=== PATIENT | male | born 1970 | race Caucasian/White ===

== ENCOUNTER 2018-07-19 07:20 | Inpatient (IN) | payer BC ==
[2018-07-19 07:46] LABS: Absolute Lymphocytes (CBC) 2.9 K/uL (0.7-4.9); Absolute Monocytes 0.7 K/uL (0.1-1.3); Absolute Neutrophil 3.1 K/uL (1.8-8.0); Eosinophils % 2.7 % (0-4.4); Hematocrit 41.8 % (39.6-49.0); Lymphocytes % 41.6 % (15.3-44.8); MCH 30.4 pg (27.0-35.0); MCV 86.6 fL (80-100); MPV 8.9 fL (7.6-11.3); Monocytes % 10.5 % (3.3-12.3); RBC Red Blood Cell Count 4.83 M/uL (4.33-5.43)
[2018-07-19 08:18] LABS: Albumin 4.5 g/dL (3.4-5.0); Bilirubin Direct 0.1 mg/dL (0-0.2); Bilirubin Total 0.5 mg/dL (0.2-1.0); Potassium 3.8 mmol/L (3.5-5.1)
[2018-07-19 08:21] LABS: CKMB Creatine Kinase MB 11.9 ng/mL (0.3-3.6)
[2018-07-19] MEDS ORDERED: NITROGLYCERIN 0.4 MG/TAB SL ONE (08:26)
[2018-07-19] MEDS ORDERED: ASPIRIN 81 MG CHEWABLE TABLET ONE (08:26)
[2018-07-19] MEDS ORDERED: ENOXAPARIN 100 MG/ML SYR SQ ONE (08:42)
--- NOTE | 2018-07-19 08:52 | EDPHYS ---
Physician Documentation [facility] Name: Steven Morillo Age: 47 yrs Sex: Male : 1970 Arrival Date: 07/19/2018 Time: 07:21 Bed 13 Private MD: ED Physician Osiel Ramírez HPI: 07/19 07:36 This 47 yrs old Male presents to ER via Wheelchair with complaints of Chest rn Pain > 30 y/o. 07:36 The patient or guardian reports chest pain that is located primarily in the anterior rn chest wall. Onset: this morning. The pain does not radiate. Associated signs and symptoms: Pertinent positives: None. Pertinent negatives: abdominal pain, cough, palpitations, shortness of breath, syncope, vomiting. The chest pain is described as dull. Duration: The patient or guardian reports a single episode, that is still ongoing. Modifying factors: The symptoms are alleviated by nothing. the symptoms are aggravated by nothing. Severity of pain: At its worst the pain was mild in the emergency department the pain is unchanged. The patient has not experienced similar symptoms in the past. The patient has not recently seen a physician. Reports chest pain, dull, non-radiating, began this AM, had some nausea/vomiting that began Tuesday, no abd pain. No fever. Family hx of ID at his age with at 61.. Historical: - Allergies: 07:30 No Known Allergies; aj - Home Meds: 07:30 Unknown HTN med [Active]; Lipitor Oral [Active]; aj - PMHx: 07:30 Hyperlipidemia; Hypertension; aj - PSHx: 07:30 Shoulder; Hernia repair; aj - Immunization history:: Adult Immunizations up to date. - Social history:: Smoking status: Patient/guardian denies using tobacco. - Ebola Screening: : Patient negative for fever greater than or equal to 101.5 degrees Fahrenheit, and additional compatible Ebola Virus Disease symptoms Patient denies exposure to infectious person Patient denies travel to an Ebola-affected area in the 21 days before illness onset No symptoms or risks identified at this time. - Family history:: not pertinent. - Hospitalizations: : No recent hospitalization is reported. ROS: 07:36 Constitutional: Negative for fever, chills, and weight loss, Eyes: Negative for injury, rn pain, redness, and discharge, Neck: Negative for injury, pain, and swelling, Cardiovascular: Negative for palpitations, and edema, Respiratory: Negative for shortness of breath, cough, wheezing, and pleuritic chest pain, Abdomen/GI: Negative for abdominal pain, nausea, vomiting, diarrhea, and constipation, MS/Extremity: Negative for injury and deformity, Skin: Negative for injury, rash, and discoloration, Neuro: Negative for headache, weakness, numbness, tingling, and seizure. Exam: 07:36 Constitutional: This is a well developed, well nourished patient who is awake, alert, rn appears anxious Head/Face: Normocephalic, atraumatic. Eyes: Pupils equal round and reactive to light, extra-ocular motions intact. Lids and lashes normal. Conjunctiva and sclera are non-icteric and not injected. Cornea within normal limits. Periorbital areas with no swelling, redness, or edema. Cardiovascular: Regular rate and rhythm with a normal S1 and S2. No gallops, murmurs, or rubs. Normal PMI, no JVD. No pulse deficits. Respiratory: Lungs have equal breath sounds bilaterally, clear to auscultation and percussion. No rales, rhonchi or wheezes noted. No increased work of breathing, no retractions or nasal flaring. Abdomen/GI: Soft, non-tender. No distension or tympany. No guarding or rebound. No evidence of tenderness throughout. MS/ Extremity: Pulses equal, no cyanosis. Neurovascular intact. Full, normal range of motion. Equal circumference. Neuro: Awake and alert, GCS 15, oriented to person, place, time, and situation. Cranial nerves II-XII grossly intact. Motor strength 5/5 in all extremities. Sensory grossly intact. 07:41 ECG was reviewed by the Attending Physician. rn Vital Signs: 07:30 BP 177 / 111; Pulse 90; Resp 16; Temp 98.5; Pulse Ox 97% on R/A; Weight 98.43 kg; aj Height 5 ft. 11 in. (180.34 cm); 08:05 BP 160 / 102; Pulse 72; Resp 17; Pulse Ox 95% on R/A; sv 08:15 BP 142 / 108; Pulse 83; Resp 17; Pulse Ox 99% ; sv 08:35 BP 137 / 96 LA Sitting (auto/reg); Pulse 81; Resp 16; Pulse Ox 96% on R/A; sv 09:15 BP 125 / 89; Pulse 77; Resp 16; Pulse Ox 96% on R/A; dh3 09:45 BP 128 / 92; Pulse 89; Resp 19; Pulse Ox 99% on R/A; dh3 10:30 BP 142 / 102; Pulse 78; Resp 15; Pulse Ox 98% on R/A; dh3 11:29 BP 133 / 112; Pulse 74; Resp 16; Pulse Ox 96% on R/A; dh3 07:30 Body Mass Index 30.27 (98.43 kg, 180.34 cm) aj MDM: 07:26 Patient medically screened. rn 08:48 Differential diagnosis: anxiety, coronary artery disease pericarditis, pleurisy, rn pneumonia, pneumothorax, stable angina, unstable angina. Data reviewed: vital signs, nurses notes. Data reviewed: lab test result(s), EKG, radiologic studies, plain films, and as a result, I will admit patient. 08:50 The patient was given aspirin in the Emergency Department. Counseling: I had a detailed rn discussion with the patient and/or guardian regarding: the historical points, exam findings, and any diagnostic results supporting the discharge/admit diagnosis, lab results, radiology results, the need for further work-up and treatment in the hospital. Response to treatment: the patient's symptoms have mildly improved after treatment, and as a result, I will admit patient. Admission orders: after a detailed discussion of the patient's condition and case, the admit orders are written by me. ED course: Pt with elevated trop, + famhx hx of early ID and , improved a little with nitro, aspirin and lovenox given, admitted to Dr. Viera, no answer, left voicemail.. 11:50 ED course: Cardiology aware of patient and consult, awaiting evaluation, currently rn holding in ER due to lack of beds upstairs.. 07/19 07:33 Order name: LFT's; Complete Time: 08:32 rn 07/19 07:33 Order name: Basic Metabolic Panel; Complete Time: 08:32 rn 07/19 07:33 Order name: CBC with Diff; Complete Time: 08:14 rn 07/19 07:33 Order name: Ckmb; Complete Time: 08:32 rn 07/19 07:33 Order name: CPK; Complete Time: 08:32 rn 07/19 07:33 Order name: NT PRO-BNP; Complete Time: 08:32 rn 07/19 07:33 Order name: Troponin (emerg Dept Use Only); Complete Time: 08:32 rn 07/19 07:33 Order name: XRAY Chest (1 view); Complete Time: 09:02 rn 07/19 07:33 Order name: Lipase; Complete Time: 08:32 rn 07/19 10:25 Order name: Troponin (emerg Dept Use Only) sv 07/19 11:07 Order name: Troponin (Emerg Dept Use Only); Complete Time: 11:29 EDMS 07/19 07:33 Order name: EKG; Complete Time: 07:34 rn 07/19 07:33 Order name: Cardiac monitoring; Complete Time: 07:40 rn 07/19 07:33 Order name: EKG - Nurse/Tech; Complete Time: 07:40 rn 07/19 07:33 Order name: IV Saline Lock; Complete Time: 07:40 rn 07/19 07:33 Order name: Labs collected and sent; Complete Time: 07:40 rn 07/19 07:33 Order name: O2 Per Protocol; Complete Time: 07:41 rn 07/19 07:33 Order name: O2 Sat Monitoring; Complete Time: 07:41 rn EC:41 Rate is 72 beats/min. Rhythm is regular. QRS [place] is Normal. [place] interval is normal. QRS rn interval is normal. No Q waves. T waves are Normal. No ST changes noted. Clinical impression: Normal ECG. Interpreted by me. Administered Medications: 08:23 Drug: Aspirin Chewable Tablet 324 mg Route: PO; sv 08:34 Follow up: Response: No adverse reaction sv 08:24 Drug: Nitroglycerin 0.4 mg Route: Sublingual; sv 08:35 Follow up: Response: No adverse reaction sv 08:39 Drug: Lovenox 1 mg/kg Route: Sub-Q; Site: left lower abdomen; sv 10:26 Follow up: Response: No adverse reaction sv Disposition: 07/19/18 08:51 Hospitalization ordered by Anna Viera for Inpatient Admission. Preliminary diagnosis is Non-ST elevation (NSTEMI) myocardial infarction. - Bed requested for Telemetry/MedSurg (Inpatient). - Status is Inpatient Admission. ph - Condition is Stable. - Problem is new. - Symptoms have improved. UTI on Admission? No Signatures: Dispatcher [employer] EDMS Shereen Romano Lara Hartman, RN Anne-Marie Jimenez, RN Ina Solis RN Osiel Esparza MD MD rn Hall, CHIRAG Soto RN ph Corrections: (The following items were deleted from the chart) 09:03 08:51 Hospitalization Ordered by Anna Viera MD for Inpatient Admission. Preliminary bd diagnosis is Non-ST elevation (NSTEMI) myocardial infarction. Bed requested for Telemetry/MedSurg (Inpatient). Status is Inpatient Admission. Condition is Stable. Problem is new. Symptoms have improved. UTI on Admission? No. rn 14:03 09:03 07/19/2018 08:51 Hospitalization Ordered by Anna Viera MD for Inpatient bd Admission. Preliminary diagnosis is Non-ST elevation (NSTEMI) myocardial infarction. Bed requested for [facility] ER HOLD. Status is Inpatient Admission. Condition is Stable. Problem is new. Symptoms have improved. UTI on Admission? No. bd 14:04 14:03 07/19/2018 08:51 Hospitalization Ordered by Anna Viera MD for Inpatient kl Admission. Preliminary diagnosis is Non-ST elevation (NSTEMI) myocardial infarction. Bed requested for Telemetry/MedSurg (Inpatient). Status is Inpatient Admission. Condition is Stable. Problem is new. Symptoms have improved. UTI on Admission? No. bd 14:59 14:04 07/19/2018 08:51 Hospitalization Ordered by Anna Viera MD for Inpatient ph Admission. Preliminary diagnosis is Non-ST elevation (NSTEMI) myocardial infarction. Bed requested for Telemetry/MedSurg (Inpatient). Status is Inpatient Admission. Condition is Stable. Problem is new. Symptoms have improved. UTI on Admission? No. kl
--- NOTE | 2018-07-19 08:52 | ER ---
Nurse's Notes [facility] Name: Steven Morillo Age: 47 yrs Sex: Male : 1970 Arrival Date: 07/19/2018 Time: 07:21 Bed 13 Private MD: Diagnosis: Non-ST elevation (NSTEMI) myocardial infarction Presentation: 07/19 07:28 Presenting complaint: Patient states: Sternal chest pain that started Tuesday. Reports aj nausea and dizziness on Tuesday. Transition of care: patient was not received from another setting of care. Onset of symptoms was July 16, 2018. Risk Assessment: Do you want to hurt yourself or someone else? Patient reports no desire to harm self or others. Initial Sepsis Screen: Does the patient meet any 2 criteria? No. Patient's initial sepsis screen is negative. Does the patient have a suspected source of infection? No. Patient's initial sepsis screen is negative. Care prior to arrival: None. 07:28 Method Of Arrival: Wheelchair aj 07:28 Acuity: TIFFANIE 3 aj Triage Assessment: 07:30 General: Appears in no apparent distress. comfortable, Behavior is calm, cooperative, aj appropriate for age. Pain: Complains of pain in mid-sternal area. Neuro: Level of Consciousness is awake, alert, obeys commands, Oriented to person, place, time, situation, Appropriate for age. Cardiovascular: Reports chest pain, lightheadedness, nausea, shortness of breath, Capillary refill < 3 seconds in bilateral fingers Patient's skin is warm and dry. Respiratory: Airway is patent Respiratory effort is even, unlabored, Respiratory pattern is regular, symmetrical. Derm: Skin is intact, is healthy with good turgor, Skin is pink, warm \T\ dry. normal. Historical: - Allergies: 07:30 No Known Allergies; aj - Home Meds: 07:30 Unknown HTN med [Active]; Lipitor Oral [Active]; aj - PMHx: 07:30 Hyperlipidemia; Hypertension; aj - PSHx: 07:30 Shoulder; Hernia repair; aj - Immunization history:: Adult Immunizations up to date. - Social history:: Smoking status: Patient/guardian denies using tobacco. - Ebola Screening: : Patient negative for fever greater than or equal to 101.5 degrees Fahrenheit, and additional compatible Ebola Virus Disease symptoms Patient denies exposure to infectious person Patient denies travel to an Ebola-affected area in the 21 days before illness onset No symptoms or risks identified at this time. - Family history:: not pertinent. - Hospitalizations: : No recent hospitalization is reported. Screenin:30 Abuse screen: Denies threats or abuse. Denies injuries from another. Nutritional sv screening: No deficits noted. Tuberculosis screening: No symptoms or risk factors identified. Fall Risk None identified. Assessment: 07:45 General: Appears in no apparent distress. comfortable, well developed, Behavior is sv calm, cooperative, appropriate for age. Pain: Complains of pain in mid-sternal area Pain currently is 3 out of 10 on a pain scale. Quality of pain is described as dull, Pain began 0400 Is intermittent. Neuro: Level of Consciousness is awake, alert, obeys commands, Oriented to person, place, time, situation, Moves all extremities. Full function Speech is normal. Cardiovascular: Heart tones S1 S2 present Patient's skin is warm and dry. Pulses are 3+ in right radial artery and left radial artery Rhythm is sinus rhythm with unifocal PVCs. Respiratory: Airway is patent Respiratory effort is even, unlabored, Respiratory pattern is regular, symmetrical, Breath sounds are clear bilaterally. Derm: Skin is intact, is healthy with good turgor, Skin is dry, Skin is pink, warm \T\ dry. Skin temperature is warm. Musculoskeletal: Range of motion: intact in all extremities. 08:20 Reassessment: Dr. Ramírez notified of critical lab value, troponin 1.46. ss 08:25 Reassessment: Patient appears in no apparent distress at this time. No changes from sv previously documented assessment. Patient and/or family updated on plan of care and expected duration. Pain level reassessed. Patient is alert, oriented x 3, equal unlabored respirations, skin warm/dry/pink. Vital Signs: 07:30 BP 177 / 111; Pulse 90; Resp 16; Temp 98.5; Pulse Ox 97% on R/A; Weight 98.43 kg; aj Height 5 ft. 11 in. (180.34 cm); 08:05 BP 160 / 102; Pulse 72; Resp 17; Pulse Ox 95% on R/A; sv 08:15 BP 142 / 108; Pulse 83; Resp 17; Pulse Ox 99% ; sv 08:35 BP 137 / 96 LA Sitting (auto/reg); Pulse 81; Resp 16; Pulse Ox 96% on R/A; sv 09:15 BP 125 / 89; Pulse 77; Resp 16; Pulse Ox 96% on R/A; dh3 09:45 BP 128 / 92; Pulse 89; Resp 19; Pulse Ox 99% on R/A; dh3 10:30 BP 142 / 102; Pulse 78; Resp 15; Pulse Ox 98% on R/A; dh3 11:29 BP 133 / 112; Pulse 74; Resp 16; Pulse Ox 96% on R/A; dh3 07:30 Body Mass Index 30.27 (98.43 kg, 180.34 cm) ED Course: 07:21 Patient arrived in ED. ds1 07:26 Osiel Ramírez MD is Attending Physician. rn 07:29 Triage completed. aj 07:30 Anne-Marie Cassidy, CHIRAG is Primary Nurse. sv 07:30 Arm band placed on left wrist. Patient placed in an exam room. aj 07:30 Patient has correct armband on for positive identification. Bed in low position. Call sv light in reach. crown perforator operator on. Pulse ox on. NIBP on. Door closed. Head of bed elevated. 07:37 EKG done, by centrifugal chiller technician. reviewed by Osiel Ramírez MD. at1 07:38 Initial lab(s) drawn, by me, sent to lab. Inserted saline lock: 20 gauge in right dh3 antecubital area, using aseptic technique. Blood collected. 07:50 X-ray completed. Portable x-ray completed in exam room. Patient tolerated procedure jb2 well. 07:51 XRAY Chest (1 view) In Process Unspecified. EDMS 08:05 Awaiting lab results, Awaiting radiology results. sv 08:51 Anna Viera MD is Hospitalizing Provider. rn 10:37 Repeat lab(s) drawn. by me, sent to lab. 3 15:00 No provider procedures requiring assistance completed. Patient admitted, IV remains in sv place. intact. Administered Medications: 08:23 Drug: Aspirin Chewable Tablet 324 mg Route: PO; sv 08:34 Follow up: Response: No adverse reaction sv 08:24 Drug: Nitroglycerin 0.4 mg Route: Sublingual; sv 08:35 Follow up: Response: No adverse reaction sv 08:39 Drug: Lovenox 1 mg/kg Route: Sub-Q; Site: left lower abdomen; sv 10:26 Follow up: Response: No adverse reaction sv Outcome: 08:51 Decision to Hospitalize by Provider. rn 14:59 Patient left the ED. ph 15:01 Admitted to Tele accompanied by nurse, via stretcher, room 424. sv 15:01 Condition: stable 15:01 Instructed on the need for admit. Signatures: Dispatcher [employer] EDAnne-Marie Teran RN RN sv Myers, Amanda, RN RN aj Buechter, Jesse jb2 Sanford, Demi ds1 Osiel Ramírez MD MD rn Smirch, Shelby, RN RN Ina Garcia, fuel cell systems engineer EKG Tat1 Brittany Whitaker RN RN Sandie Sandhu [facility]
--- NOTE | 2018-07-19 08:59 | RAD REPORT ---
EXAM DESCRIPTION: Derrek Single View07/19/2018 7:53 am CLINICAL HISTORY: Chest pain COMPARISON: 2012 FINDINGS: The lungs appear clear of acute infiltrate. The heart is normal size IMPRESSION: No acute abnormalities displayed
[2018-07-19] MEDS ORDERED: ACETAMINOPHEN 500 MG TAB PO PRN (09:08)
[2018-07-19] MEDS ORDERED: MORPHINE 4 MG/ML SYR IV PRN (09:08)
[2018-07-19] MEDS ORDERED: ONDANSETRON 4 MG/2 ML VIAL IV PRN (09:08)
[2018-07-19 11:44] VITALS: BMI 30.1
--- NOTE | 2018-07-19 16:17 | EKG ---
Test Date: 2018-07-19 Test Time: 07:36:02 Picker Machine Operator: LANDY MEASUREMENT RESULTS: Intervals: Rate: 72 KS: 148 QRSD: 82 QT: 374 QTc: 409 [place]: P: 34 KS: 148 QRS: 25 T: 42 INTERPRETIVE STATEMENTS: Normal sinus rhythm Normal ECG Compared to ECG 05/29/2009 09:33:46 No significant changes Electronically Signed On 07-19-18 16:14:35 CDT by Anthony Cerda
[2018-07-19] MEDS ORDERED: ATORVASTATIN 80 MG TAB PO SCH (21:00)
[2018-07-19] MEDS: ENOXAPARIN 40 MG/0.4 ML SQ SCH (21:57)
--- NOTE | 2018-07-20 02:17 | HP ---
Date of Admission: 07/19/2018 History Of Present Illness: A 47-year-old male with history of hypertension and hyperlipidemia, came to emergency room because of pain in his chest, substernal, that happened during the first time this morning and he had some nausea but no vomiting. Workup in the emergency room showed that the patien t had subendocardial myocardial infarction and he was admitted for that. Review of Systems: Cardiovascular: As above. Respiratory: No shortness of breath, no complaint. Gastrointestinal: Nausea but no vomiting and no complaint. Genitourinary: No complaints. Skeletomuscular: No complaint. Neurological: No complaint. Past Medical History: 1.Hypertension. 2.Hyperlipidemia. Past Surgical History: The patient has had a hernia repair and has chronic low back pain. Social History: No smoking, alcohol, or drug abuse history. Family History: Positive for father, coronary artery disease. Medications: Lipitor 20 mg p.o. daily, lisinopril 20 mg p.o. daily. Allergies: NO KNOWN DRUG ALLERGIES. Physical Examination: Vital Signs: Blood pressure 130/85, pulse 70, temperature 98.2. Heart: Regular rate and rhythm. Chest: Clear to auscultation. Abdomen: Soft, nontender, not feeling well. Bowel sounds are normoactive. Extremities: No edema. No cyanosis. Peripheral pulses are felt. Neurological: Alert, oriented, nonfocal. Grossly intact. Diagnostic Studies: EKG reported to me by ER physician showing sinus rhythm, no ST elevation. Chest x-ray, no acute pathology. CBC, nonrevealing. Chemistry; BUN 19, creatinine 1.1, glucose 109, rapi d troponin 1.46 and 1.80, CK-MB 11.9. Assessment And Plan: The patient likely have had subendocardial myocardial infarction with an elevat ion of his rapid troponin and total CK-MB. Cardiology was consulted. The patient went ahead and kep t on his home medicines and on aspirin and Lovenox. Cardiac monitoring pending Cardiology and morphi ne for pain pending Cardiology workup. The patient at this time has no chest pain and he is hemodyna mically stable. MFS/MODL Voice ID: [id number]
[2018-07-20 04:32] LABS: Absolute Lymphocytes (CBC) 2.1 K/uL (0.7-4.9); Absolute Monocytes 0.7 K/uL (0.1-1.3); Absolute Neutrophil 2.7 K/uL (1.8-8.0); Basophils % 1.2 % (0-1.3); Eosinophils % 3.1 % (0-4.4); Hematocrit 41.8 % (39.6-49.0); Lymphocytes % 37.4 % (15.3-44.8); MCH 30.7 pg (27.0-35.0); MCV 87.8 fL (80-100); MPV 9.1 fL (7.6-11.3); Monocytes % 11.5 % (3.3-12.3); RBC Red Blood Cell Count 4.77 M/uL (4.33-5.43)
[2018-07-20 04:35] LABS: Potassium 4.7 mmol/L (3.5-5.1)
--- NOTE | 2018-07-20 06:35 | CON ---
Date of Consultation: 07/19/2018 Reason For Consultation: Non-ST elevation myocardial infarction. History Of Present Illness: Mr. Morillo is a 47-year-old white male with history of hypertension, dysl ipidemia, and a strong family history of heart disease. His father at 61 from coronary a rtery disease. He is to see Dr. Kirkland. The patient came in with an episode of substernal upper parul st pain with some left arm radiation, diaphoresis, and nausea but no vomiting. Denied PND, orthopnea , pedal edema, palpitation, or syncope. His EKG was nonspecific and troponin was positive. Allergies: NONE. Review of Systems: Negative. Social History: Negative for tobacco or drugs or alcohol. Family History: Positive for heart disease. Medications: At home include Lipitor and lisinopril. Allergies: NONE. Physical Examination: Vital Signs: Stable. He was afebrile. HEENT: Negative. Neck: Supple with no bruit or JVD. Chest: Clear to auscultation and percussion. Cardiac: Regular rhythm and rate without any murmurs, gallops, or rubs. Abdomen: Benign. Extremities: Reveal no clubbing, cyanosis, or edema. Diagnostic Data: As stated earlier. Impression And Plan: 1.Non-ST elevation myocardial infarction. 2.Hypertension. 3.Dyslipidemia. I would agree with his present regimen including Lovenox, aspirin, beta-blockers, L ipitor, and lisinopril. The patient needs a left heart catheterization to define his coronary anatom y. The risks and the benefits of the procedure were discussed with Mr. Morillo and he agrees to procee d. His blood pressure is well controlled and his dyslipidemia is well controlled. We will perform a heart catheterization on July 20, 2018. INO/KYLE Voice ID: [id number] Report ID: [id number]
[2018-07-20] MEDS ORDERED: NA CHLORIDE 0.9% 1,000 ML ONE (08:05)
[2018-07-20] MEDS: ENOXAPARIN 40 MG/0.4 ML SQ SCH (08:18)
[2018-07-20] MEDS ORDERED: LISINOPRIL 20 MG TAB PO SCH (09:00)
[2018-07-20] MEDS ORDERED: ASPIRIN EC 81 MG TAB PO SCH (09:00)
[2018-07-20] MEDS ORDERED: HEPA 1000U/500MLS 1,000 UNIT/500 ML BAG IV ONE (13:56)
[2018-07-20] MEDS ORDERED: LIDOCAINE 1% MPF 5 ML VIAL ONE (13:59)
[2018-07-20] MEDS ORDERED: MIDAZOLAM HCL 2 MG/2 ML INJ ONE (14:14)
[2018-07-20] MEDS ORDERED: FENTANYL CITR 100 MCG/2 ML ONE (14:15)
[2018-07-20] MEDS ORDERED: ATROPINE SULF 1 MG/10 ML SYR IV ONE (14:15)
[2018-07-20] MEDS ORDERED: NA CHLORIDE 0.9% 0 ML ONE (14:15)
[2018-07-20 16:13] VITALS: BP 125/70; TEMP 98.2; O2SAT 94
--- NOTE | 2018-07-20 16:29 | EKG ---
Test Date: 2018-07-20 Test Time: 09:15:59 Angiography Technologist: LANDY MEASUREMENT RESULTS: Intervals: Rate: 66 NC: 128 QRSD: 80 QT: 364 QTc: 381 [place]: P: 38 NC: 128 QRS: 38 T: 67 INTERPRETIVE STATEMENTS: Normal sinus rhythm Normal ECG Compared to ECG 07/19/2018 07:36:02 No significant changes Electronically Signed On 07-20-18 16:26:16 CDT by Anthony Cerda
[2018-07-20] MEDS ORDERED: ACETAMINOPHEN 325 MG TABLET PO PRN (17:05)
[2018-07-20] MEDS ORDERED: NITROGLYCERIN 0.4 MG/TAB SL PRN (17:06)
[2018-07-20] MEDS ORDERED: NA CHLORIDE 0.9% 1,000 ML IV SCH (18:00)
--- NOTE | 2018-07-21 01:22 | OP ---
Surgeon: Anthony Cerda MD Procedure: Left heart catheterization, selective coronary arteriogram, left ventriculogram. Indications: Mr. Morillo is 47, with hypertension, dyslipidemia, family history of heart disease, admi tted with non-ST elevation [place]. He was prepped and draped in standard sterile fashion, was given 2 mg of Versed and 25 of fentanyl for sedation. Right common femoral artery was accessed with a 6-[place] sheath. StarClose was used to close the case. A 6-[place] Citizen Ana catheter was used to do the coron zach artery injection. He was found to have a 99% mid RCA, 70% distal RCA. The RCA was nondominant. He was left dominant. The circumflex was within normal limit with very large vessel. He had 100% o stial LAD, and he had a 90% ostial small ramus. Normal LVEF, normal LVEDP. Normal LV gram using a p igtail. There were no complications. Blood Loss: 5 cc. Postoperative Diagnosis: Severe coronary artery disease. Plan: To send him to [facility] for coronary artery bypass surgery. Operators: Dr. Anthony Cerda and Dr. Abigail Jones. Total Conscious Sedation: 30 minutes. INO/KYLE Voice ID: [id number] Report ID: [id number]
--- NOTE | 2018-07-21 15:35 | DS ---
Date of Discharge: 07/20/2018 History: A 47-year-old male who was admitted to the hospital because of substernal chest pain. The patient has hypertension, hyperlipidemia, and strong family history of coronary artery disease. Past Medical History: As per his admit note. Social History: As per his admit note. Family History: As per his admit note. Medications: As per his admit note. Allergies: PER HIS ADMIT NOTE. Physical Examination: As per his admit note. Diagnostic Data: As per his admit note. Hospital Course: The patient was admitted to the hospital with diagnosis of subendocardial infarctio n. He was put on Lovenox, aspirin, his home medications for his blood pressure, and beta-blockers, a nd Cardiology was consulted. Dr. Cerda had seen the patient, and he did a heart catheterization, w [facility] showed LAD narrowing and stenosis along with other branches. The full report is not yet availab le. However, it was the recommendation of Cardiology to transfer the patient to [place] for coronary artery bypass graft. The patient at this time is stable, has no complaints, and he is hemodynamically stable, and the patient was transferred for that surgery. MFS/MODL Voice ID: [id number] Report ID: [id number]
== END 2018-07-20 18:50 | disposition short-term general hospital (02) | DRG 282 ==
LOC: ER 07:20 → ERHOLD 08:52 → 4TH 14:36
PROVIDERS: ADMIT Internal Medicine; ATTEND Internal Medicine
PROC: 4A023N7 Measurement of Cardiac Sampling and Pressure, Left Heart, Percutaneous Approach (ICD-10-PCS; principal; 2018-07-20)
PROC: B201YZZ Plain Radiography of Multiple Coronary Arteries using Other Contrast (ICD-10-PCS; 2018-07-20)
PROC: B205YZZ Plain Radiography of Left Heart using Other Contrast (ICD-10-PCS; 2018-07-20)
DX: I21.4 Non-ST elevation (NSTEMI) myocardial infarction (principal); I25.10 Atherosclerotic heart disease of native coronary artery without angina pectoris; I10 Essential (primary) hypertension; E78.5 Hyperlipidemia, unspecified
CPT/HCPCS: 36415; 71045; 80048; 80076; 82550; 82553; 83690; 83880; 84484; 85025; 93005; 93458; 96372; 99285; C1893; J0583; J1650; J2250; J3010; J7030

== ENCOUNTER 2020-03-22 20:11 | Emergency (ER) | payer BC ==
--- OUTSIDE RECORDS SUMMARY | 2020-03-22 20:15 | XMS REPORT ---
:1970 Author Organization [facility] t Address [address] [place] [address] Care Team Providers Name Role Phone MEAGHAN LOVETT Unavailable Unavailable Problems This patient has no known problems. Allergies, Adverse Reactions, Alerts This patient has no known allergies or adverse reactions. Medications This patient has no known medications. Results Test Description Test Time Test Comments Text Results Atomic Results Result Comments BASIC METABOLIC PANEL 2018-07-26 07:32:00 Test Item Value Reference Range Comments SODIUM (BEAKER) (test code = 135 meq/L 136-145 381) POTASSIUM (BEAKER) (test 3.2 meq/L 3.5-5.1 code = 379) CHLORIDE (BEAKER) (test code 96 meq/L 98-107 = 382) CO2 (BEAKER) (test code = 30 meq/L 22-29 355) BLOOD UREA NITROGEN (BEAKER) 16 mg/dL 7-21 (test code = 354) CREATININE (BEAKER) (test 0.83 mg/dL 0.57-1.25 code = 358) GLUCOSE RANDOM (BEAKER) 97 mg/dL 70-105 (test code = 652) CALCIUM (BEAKER) (test code 8.9 mg/dL 8.4-10.2 = 697) EGFR (BEAKER) (test code = 99 mL/min/1.73 sq m E STIMATED GFR IS NOT 1092) ACCURATE CREA TININE CLEARANCE IN PRE DICTING GLOMERULAR FILTR ATION RATE. ESTIMATED GFR IS NOT APPLICABLE FOR D IALYSIS PATIENTS. CBC W/PLT COUNT & AUTO [id number] 07:01:00 Test Item Value Reference Range Comments WHITE BLOOD CELL COUNT (BEAKER) (test code = 7.1 K/ L 3.5 -10.5 775) RED BLOOD CELL COUNT (BEAKER) (test code = 761) 3.75 M/ L 4.63-6.08 HEMOGLOBIN (BEAKER) (test code = 410) 11.1 GM/DL 13.7-17.5 HEMATOCRIT (BEAKER) (test code = 411) 33.0 % 40.1-51.0 MEAN CORPUSCULAR VOLUME (BEAKER) (test code = 88.0 fL 79 .0-92.2 753) MEAN CORPUSCULAR HEMOGLOBIN (BEAKER) (test code 29.6 pg 25.7-32.2 = 751) MEAN CORPUSCULAR HEMOGLOBIN CONC (BEAKER) (test 33.6 GM/DL 32.3-36.5 code = 752) RED CELL DISTRIBUTION WIDTH (BEAKER) (test code 11.9 % 11.6-14.4 = 412) PLATELET COUNT (BEAKER) (test code = 756) 183 K/CU MM 150-45 0 MEAN PLATELET VOLUME (BEAKER) (test code = 754) 11.2 fL 9.4-12.4 NUCLEATED RED BLOOD CELLS (BEAKER) (test code = 0 /100 WBC 0-0 413) NEUTROPHILS RELATIVE PERCENT (BEAKER) (test code 61 % = 429) LYMPHOCYTES RELATIVE PERCENT (BEAKER) (test code 24 % = 430) MONOCYTES RELATIVE PERCENT (BEAKER) (test code = 10 % 431) EOSINOPHILS RELATIVE PERCENT (BEAKER) (test code 4 % = 432) BASOPHILS RELATIVE PERCENT (BEAKER) (test code = 0 % 437) NEUTROPHILS ABSOLUTE COUNT (BEAKER) (test code = 4.35 K/ L 1.78-5.38 670) LYMPHOCYTES ABSOLUTE COUNT (BEAKER) (test code = 1.72 K/ L 1.32-3.57 414) MONOCYTES ABSOLUTE COUNT (BEAKER) (test code = 0.69 K/ L 0 .30-0.82 415) EOSINOPHILS ABSOLUTE COUNT (BEAKER) (test code = 0.26 K/ L 0.04-0.54 416) BASOPHILS ABSOLUTE COUNT (BEAKER) (test code = 0.03 K/ L 0 .01-0.08 417) IMMATURE GRANULOCYTES-RELATIVE PERCENT (BEAKER) 1 % 0-1 (test code = 2801) POCT-GLUCOSE [id number] 09:19:00 Test Item Value Reference Range Comments POC-GLUCOSE METER (BEAKER) 122 mg/dL 70-110 TESTE D AT [address] (test code = 1538) [facility] [address] CALCIUM, [id number] 07:21:00 Test Item Value Reference Range Comments CALCIUM IONIZED (BEAKER) (test code = 698) 0.95 mmol/L 1.12- 1.27 PH, BLOOD (BEAKER) (test code = 1810) 7.40 Check serum Ionized Calcium level after 4 hours after IV Calcium replacement. [id number] 06:37:00 Test Item Value Reference Range Comments MAGNESIUM (BEAKER) (test code = 627) 2.2 mg/dL 1.6-2.6 Check Serum Magnesium level 2 hours after IV magnesium replacement.BASIC METABOLIC [id number] 06:37:00 Test Item Value Reference Range Comments SODIUM (BEAKER) (test 136 meq/L 136-145 code = 381) POTASSIUM (BEAKER) (test 3.7 meq/L 3.5-5.1 code = 379) CHLORIDE (BEAKER) (test 96 meq/L 98-107 code = 382) CO2 (BEAKER) (test code = 33 meq/L 22-29 355) BLOOD UREA NITROGEN 16 mg/dL 7-21 (BEAKER) (test code = 354) CREATININE (BEAKER) (test 0.77 mg/dL 0.57-1.25 code = 358) GLUCOSE RANDOM (BEAKER) 99 mg/dL 70-105 (test code = 652) CALCIUM (BEAKER) (test 8.5 mg/dL 8.4-10.2 code = 697) EGFR (BEAKER) (test code 108 mL/min/1.73 sq m ES TIMATED GFR IS NOT = 1092) ACCURATE CREA TININE CLEARANCE IN PRE DICTING GLOMERULAR FILTR ATION RATE. ESTIMATED GFR IS NOT APPLICABLE F OR DIALYSIS PATIENT S. Check Serum Magnesium level 2 hours after IV magnesium replacement.CBC W/PLT COUNT & AUTO [id number] 06:18:00 Test Item Value Reference Range Comments WHITE BLOOD CELL COUNT (BEAKER) (test code = 7.8 K/ L 3.5 -10.5 775) RED BLOOD CELL COUNT (BEAKER) (test code = 761) 3.34 M/ L 4.63-6.08 HEMOGLOBIN (BEAKER) (test code = 410) 9.9 GM/DL 13.7-17.5 HEMATOCRIT (BEAKER) (test code = 411) 29.6 % 40.1-51.0 MEAN CORPUSCULAR VOLUME (BEAKER) (test code = 88.6 fL 79 .0-92.2 753) MEAN CORPUSCULAR HEMOGLOBIN (BEAKER) (test code 29.6 pg 25.7-32.2 = 751) MEAN CORPUSCULAR HEMOGLOBIN CONC (BEAKER) (test 33.4 GM/DL 32.3-36.5 code = 752) RED CELL DISTRIBUTION WIDTH (BEAKER) (test code 11.9 % 11.6-14.4 = 412) PLATELET COUNT (BEAKER) (test code = 756) 140 K/CU MM 150-45 0 MEAN PLATELET VOLUME (BEAKER) (test code = 754) 12.6 fL 9.4-12.4 NUCLEATED RED BLOOD CELLS (BEAKER) (test code = 0 /100 WBC 0-0 413) NEUTROPHILS RELATIVE PERCENT (BEAKER) (test code 70 % = 429) LYMPHOCYTES RELATIVE PERCENT (BEAKER) (test code 18 % = 430) MONOCYTES RELATIVE PERCENT (BEAKER) (test code = 9 % 431) EOSINOPHILS RELATIVE PERCENT (BEAKER) (test code 3 % = 432) BASOPHILS RELATIVE PERCENT (BEAKER) (test code = 0 % 437) NEUTROPHILS ABSOLUTE COUNT (BEAKER) (test code = 5.46 K/ L 1.78-5.38 670) LYMPHOCYTES ABSOLUTE COUNT (BEAKER) (test code = 1.39 K/ L 1.32-3.57 414) MONOCYTES ABSOLUTE COUNT (BEAKER) (test code = 0.71 K/ L 0 .30-0.82 415) EOSINOPHILS ABSOLUTE COUNT (BEAKER) (test code = 0.21 K/ L 0.04-0.54 416) BASOPHILS ABSOLUTE COUNT (BEAKER) (test code = 0.02 K/ L 0 .01-0.08 417) IMMATURE GRANULOCYTES-RELATIVE PERCENT (BEAKER) 0 % 0-1 (test code = 2801) RAD, CHEST, 1 VIEW, NON [id number] 04:00:00Reason for exam:->CTShould this be performed at the bedside?->YesFINAL REPORT CLINICAL INDICATION: Chest tube Comparison: 07/24/2018 The cardiomediastinal contours are stable. The lung volumes remain low. Bilateral parenchymal opacities are unchanged. There is no pneumothorax after left chest tube removal. A mediastinal drain is stable. Signed: Kiara Nunez MDReport Verified Date/Time: 07/25/2018 04:00:33 Reading Location: [address] Reading Room [id number] 06:19:00 Test Item Value Reference Range Comments MAGNESIUM (BEAKER) (test code = 627) 2.1 mg/dL 1.6-2.6 Check Serum Magnesium level 2 hours after IV magnesium replacement.BASIC METABOLIC [id number] 06:19:00 Test Item Value Reference Range Comments SODIUM (BEAKER) (test 134 meq/L 136-145 code = 381) POTASSIUM (BEAKER) (test 3.9 meq/L 3.5-5.1 code = 379) CHLORIDE (BEAKER) (test 95 meq/L 98-107 code = 382) CO2 (BEAKER) (test code = 30 meq/L 22-29 355) BLOOD UREA NITROGEN 21 mg/dL 7-21 (BEAKER) (test code = 354) CREATININE (BEAKER) (test 0.85 mg/dL 0.57-1.25 code = 358) GLUCOSE RANDOM (BEAKER) 106 mg/dL 70-105 (test code = 652) CALCIUM (BEAKER) (test 8.2 mg/dL 8.4-10.2 code = 697) EGFR (BEAKER) (test code 97 mL/min/1.73 sq m EST IMATED GFR IS NOT = 1092) ACCURATE CREA TININE CLEARANCE IN PRE DICTING GLOMERULAR FILTR ATION RATE. ESTIMATED GFR IS NOT APPLICABLE F OR DIALYSIS PATIENT S. Check Serum Magnesium level 2 hours after IV magnesium replacement.CALCIUM, [id number] 06:17:00 Test Item Value Reference Range Comments CALCIUM IONIZED (BEAKER) (test code = 698) 0.93 mmol/L 1.12- 1.27 PH, BLOOD (BEAKER) (test code = 1810) 7.43 Check serum Ionized Calcium level after 4 hours after IV Calcium replacement.CBC W/PLT COUNT & AUTO [id number] 06:03:00 Test Item Value Reference Range Comments WHITE BLOOD CELL COUNT (BEAKER) (test code = 8.8 K/ L 3.5 -10.5 775) RED BLOOD CELL COUNT (BEAKER) (test code = 761) 3.61 M/ L 4.63-6.08 HEMOGLOBIN (BEAKER) (test code = 410) 10.8 GM/DL 13.7-17.5 HEMATOCRIT (BEAKER) (test code = 411) 32.0 % 40.1-51.0 MEAN CORPUSCULAR VOLUME (BEAKER) (test code = 88.6 fL 79 .0-92.2 753) MEAN CORPUSCULAR HEMOGLOBIN (BEAKER) (test code 29.9 pg 25.7-32.2 = 751) MEAN CORPUSCULAR HEMOGLOBIN CONC (BEAKER) (test 33.8 GM/DL 32.3-36.5 code = 752) RED CELL DISTRIBUTION WIDTH (BEAKER) (test code 12.2 % 11.6-14.4 = 412) PLATELET COUNT (BEAKER) (test code = 756) 120 K/CU MM 150-45 0 MEAN PLATELET VOLUME (BEAKER) (test code = 754) 11.7 fL 9.4-12.4 NUCLEATED RED BLOOD CELLS (BEAKER) (test code = 0 /100 WBC 0-0 413) NEUTROPHILS RELATIVE PERCENT (BEAKER) (test code 71 % = 429) LYMPHOCYTES RELATIVE PERCENT (BEAKER) (test code 18 % = 430) MONOCYTES RELATIVE PERCENT (BEAKER) (test code = 8 % 431) EOSINOPHILS RELATIVE PERCENT (BEAKER) (test code 2 % = 432) BASOPHILS RELATIVE PERCENT (BEAKER) (test code = 1 % 437) NEUTROPHILS ABSOLUTE COUNT (BEAKER) (test code = 6.24 K/ L 1.78-5.38 670) LYMPHOCYTES ABSOLUTE COUNT (BEAKER) (test code = 1.61 K/ L 1.32-3.57 414) MONOCYTES ABSOLUTE COUNT (BEAKER) (test code = 0.67 K/ L 0 .30-0.82 415) EOSINOPHILS ABSOLUTE COUNT (BEAKER) (test code = 0.17 K/ L 0.04-0.54 416) BASOPHILS ABSOLUTE COUNT (BEAKER) (test code = 0.04 K/ L 0 .01-0.08 417) IMMATURE GRANULOCYTES-RELATIVE PERCENT (BEAKER) 1 % 0-1 (test code = 2801) RAD, CHEST, 1 VIEW, NON [id number] 04:17:00Reason for exam:->CTShould this be performed at the bedside?->YesFINAL REPORT RAD, CHEST, 1 VIEW, NON DEPT INDICATION: CT COMPARISON: Prior day's exam FINDINGS: Portable frontal view of the chest. IMPRESSION: Termination limited by motion artifact.Support Lines: Interval removal of the right sided chest tube. Interval removal of the right IJ central venous catheter. Previously seen mediastinal drain is not well seen, correlate for history of removal. Left sided chest tube remains. Lungs and pleura: Unchanged airspace and pleural opacities. No identifiable pneumothorax however significantly limited examination.Heart and mediastinum: Stable contours. Stable surgical changes.Additional findings: None. Signed: Omkar Grant Verified Date/Time: 07/24/2018 04:17:52 Reading Location: [address] Transitional Reading Room POCT-GLUCOSE METER 2018-07-23 10:40:00 Test Item Value Reference Range Comments POC-GLUCOSE METER (BEAKER) 159 mg/dL 70-110 TESTE D AT [address] (test code = 1538) [place] [address] POCT-GLUCOSE [id number] 06:00:00 Test Item Value Reference Range Comments POC-GLUCOSE METER (BEAKER) 111 mg/dL 70-110 TESTE D AT [address] (test code = 1538) [place] [address] POCT-GLUCOSE [id number] 06:00:00 Test Item Value Reference Range Comments POC-GLUCOSE METER (BEAKER) 105 mg/dL 70-110 TESTE D AT [address] (test code = 1538) [place] [address] [id number] 04:46:00 Test Item Value Reference Range Comments PHOSPHORUS (BEAKER) (test code = 604) 2.5 mg/dL 2.3-4.7 [id number] 04:46:00 Test Item Value Reference Range Comments MAGNESIUM (BEAKER) (test code = 627) 2.0 mg/dL 1.6-2.6 BASIC METABOLIC [id number] 04:46:00 Test Item Value Reference Range Comments SODIUM (BEAKER) (test 134 meq/L 136-145 code = 381) POTASSIUM (BEAKER) (test 4.2 meq/L 3.5-5.1 code = 379) CHLORIDE (BEAKER) (test 102 meq/L 98-107 code = 382) CO2 (BEAKER) (test code = 23 meq/L 22-29 355) BLOOD UREA NITROGEN 17 mg/dL 7-21 (BEAKER) (test code = 354) CREATININE (BEAKER) (test 0.88 mg/dL 0.57-1.25 code = 358) GLUCOSE RANDOM (BEAKER) 97 mg/dL 70-105 (test code = 652) CALCIUM (BEAKER) (test 8.2 mg/dL 8.4-10.2 code = 697) EGFR (BEAKER) (test code 93 mL/min/1.73 sq m EST IMATED GFR IS NOT = 1092) ACCURATE CREA TININE CLEARANCE IN PRE DICTING GLOMERULAR FILTR ATION RATE. ESTIMATED GFR IS NOT APPLICABLE F OR DIALYSIS PATIENT S. RAD, CHEST, 1 VIEW, NON [id number] 04:43:00Reason for exam:->CTShould this be performed at the bedside?->YesFINAL REPORT CLINICAL INDICATION: Support lines. Comparison: 07/22/2018 The cardiomediastinal contours are stable. The lung volumes remain low. Central pulmonary vascular congestion and bilateral parenchymal opacities are unchanged. There is no pneumothorax. Support lines are stable. Signed: Kiara Nunez MDReport Verified Date/Time: 07/23/2018 04:43:55 Reading Location: [address] Reading Room LACTIC ACID, ARTERIAL, WHOLE [id number] 04:01:00 Test Item Value Reference Range Comments LACTATE BLOOD ARTERIAL (2) (BEAKER) (test code = 0.9 mmol/L 0.5-2.2 2874) Effective 03/24/2016: Units/Reference Range ChangeNew: 0.5-2.2 mmol/L Previous: 5-20 mg/dLFor occult hypoperfusionCBC (HEMOGRAM ONLY)2018-07-23 03:52:00 Test Item Value Reference Range Comments WHITE BLOOD CELL COUNT (BEAKER) (test code = 7.8 K/ L 3.5 -10.5 775) RED BLOOD CELL COUNT (BEAKER) (test code = 761) 3.81 M/ L 4.63-6.08 HEMOGLOBIN (BEAKER) (test code = 410) 11.4 GM/DL 13.7-17.5 HEMATOCRIT (BEAKER) (test code = 411) 33.7 % 40.1-51.0 MEAN CORPUSCULAR VOLUME (BEAKER) (test code = 88.5 fL 79 .0-92.2 753) MEAN CORPUSCULAR HEMOGLOBIN (BEAKER) (test code 29.9 pg 25.7-32.2 = 751) MEAN CORPUSCULAR HEMOGLOBIN CONC (BEAKER) (test 33.8 GM/DL 32.3-36.5 code = 752) RED CELL DISTRIBUTION WIDTH (BEAKER) (test code 12.2 % 11.6-14.4 = 412) PLATELET COUNT (BEAKER) (test code = 756) 100 K/CU MM 150-45 0 MEAN PLATELET VOLUME (BEAKER) (test code = 754) 11.7 fL 9.4-12.4 NUCLEATED RED BLOOD CELLS (BEAKER) (test code = 0 /100 WBC 0-0 413) OXYGEN SATURATION, [id number] 03:50:00 Test Item Value Reference Range Comments O2 SATURATION (MEASURED) (BEAKER) (test code = 1455) 57.2 % For occult hypoperfusionPOCT-GLUCOSE [id number] 17:59:00 Test Item Value Reference Range Comments POC-GLUCOSE METER (BEAKER) 100 mg/dL 70-110 TESTE D AT [facility] [address] (test code = 1538) [facility] [address] HEMOGLOBIN [id number] 12:00:00 Test Item Value Reference Range Comments HEMOGLOBIN A1C (BEAKER) (test code = 368) 5.8 % 4.3-6. 1 POCT-GLUCOSE [id number] 10:51:00 Test Item Value Reference Range Comments POC-GLUCOSE METER (BEAKER) 107 mg/dL 70-110 TESTE D AT [facility] (test code = 1538) [facility] [address] POCT-GLUCOSE [id number] 08:35:00 Test Item Value Reference Range Comments POC-GLUCOSE METER (BEAKER) 124 mg/dL 70-110 TESTE D AT [facility] [address] [facility] (test code = 1538) [place] [address] POCT-GLUCOSE [id number] 06:33:00 Test Item Value Reference Range Comments POC-GLUCOSE METER (BEAKER) 116 mg/dL 70-110 TESTE D AT [facility] [address] (test code = 1538) [place] [address] [id number] 06:26:00 Test Item Value Reference Range Comments PHOSPHORUS (BEAKER) (test code = 604) 3.2 mg/dL 2.3-4.7 [id number] 06:26:00 Test Item Value Reference Range Comments MAGNESIUM (BEAKER) (test code = 627) 2.1 mg/dL 1.6-2.6 BASIC METABOLIC [id number] 06:26:00 Test Item Value Reference Range Comments SODIUM (BEAKER) (test 137 meq/L 136-145 code = 381) POTASSIUM (BEAKER) (test 4.4 meq/L 3.5-5.1 code = 379) CHLORIDE (BEAKER) (test 109 meq/L 98-107 code = 382) CO2 (BEAKER) (test code = 22 meq/L 22-29 355) BLOOD UREA NITROGEN 16 mg/dL 7-21 (BEAKER) (test code = 354) CREATININE (BEAKER) (test 1.00 mg/dL 0.57-1.25 code = 358) GLUCOSE RANDOM (BEAKER) 118 mg/dL 70-105 (test code = 652) CALCIUM (BEAKER) (test 8.4 mg/dL 8.4-10.2 code = 697) EGFR (BEAKER) (test code 80 mL/min/1.73 sq m EST IMATED GFR IS NOT = 1092) ACCURATE CREA TININE CLEARANCE IN PRE DICTING GLOMERULAR FILTR ATION RATE. ESTIMATED GFR IS NOT APPLICABLE F OR DIALYSIS PATIENT S. CBC (HEMOGRAM ONLY)2018-07-22 05:54:00 Test Item Value Reference Range Comments WHITE BLOOD CELL COUNT (BEAKER) (test code = 8.7 K/ L 3.5 -10.5 775) RED BLOOD CELL COUNT (BEAKER) (test code = 761) 3.94 M/ L 4.63-6.08 HEMOGLOBIN (BEAKER) (test code = 410) 11.8 GM/DL 13.7-17.5 HEMATOCRIT (BEAKER) (test code = 411) 34.8 % 40.1-51.0 MEAN CORPUSCULAR VOLUME (BEAKER) (test code = 88.3 fL 79 .0-92.2 753) MEAN CORPUSCULAR HEMOGLOBIN (BEAKER) (test code 29.9 pg 25.7-32.2 = 751) MEAN CORPUSCULAR HEMOGLOBIN CONC (BEAKER) (test 33.9 GM/DL 32.3-36.5 code = 752) RED CELL DISTRIBUTION WIDTH (BEAKER) (test code 12.1 % 11.6-14.4 = 412) PLATELET COUNT (BEAKER) (test code = 756) 121 K/CU MM 150-45 0 MEAN PLATELET VOLUME (BEAKER) (test code = 754) 11.6 fL 9.4-12.4 NUCLEATED RED BLOOD CELLS (BEAKER) (test code = 0 /100 WBC 0-0 413) LACTIC ACID, ARTERIAL, WHOLE [id number] 05:39:00 Test Item Value Reference Range Comments LACTATE BLOOD ARTERIAL (2) (BEAKER) (test code = 1.3 mmol/L 0.5-2.2 2874) Effective 03/24/2016: Units/Reference Range ChangeNew: 0.5-2.2 mmol/L Previous: 5-20 mg/dLOXYGEN SATURATION, [id number] 05:26:00 Test Item Value Reference Range Comments O2 SATURATION (MEASURED) (BEAKER) (test code = 1455) 56.3 % POCT-GLUCOSE [id number] 04:59:00 Test Item Value Reference Range Comments POC-GLUCOSE METER (BEAKER) 124 mg/dL 70-110 TESTE D AT [facility] [address] (test code = 1538) [place] [address] RAD, CHEST, 1 VIEW, NON [id number] 03:31:00while patient is intubated or has chest tubes.Reason for exam:->s/p ACBShould this be performed at the bedside?->YesFINAL REPORT CLINICAL INDICATION: Postop Comparison: 07/21/2018 The cardiomediastinal contours are stable. The lung volumes are low but stable after extubation. Bilateral parenchymal opacities are unchanged. There is no pneumothorax. Remaining support lines are stable. Signed: Kiara Nunez MDReport Verified Date/Time: 07/22/2018 03:31:59 Reading Location: [address] Reading Room POCT-GLUCOSE [id number] 02:29:00 Test Item Value Reference Range Comments POC-GLUCOSE METER (BEAKER) 118 mg/dL 70-110 TESTE D AT [facility] [address] [facility] (test code = 1538) [facility] [address] BLOOD GAS, [id number] 02:27:00 Test Item Value Reference Range Comments PH ARTERIAL (BEAKER) (test code = 383) 7.37 7.35-7.45 PCO2 ARTERIAL (BEAKER) (test code = 384) 39 mmHg 35-45 PO2 ARTERIAL (BEAKER) (test code = 385) 82 mmHg 80-90 O2 SATURATION ARTERIAL (BEAKER) (test code = 94.8 % 96. 0-97.0 386) HCO3 ARTERIAL (BEAKER) (test code = 388) 22 mmol/L 21-29 BASE EXCESS ARTERIAL (BEAKER) (test code = 387) -2.7 mmol/L -2.0-3.0 PATIENT TEMPERATURE (BEAKER) (test code = 1818) 38.8 C FIO2 (BEAKER) (test code = 1819) 36.0 % OXYGEN SATURATION, [id number] 00:59:00 Test Item Value Reference Range Comments O2 SATURATION (MEASURED) (BEAKER) (test code = 1455) 56.6 % BLOOD GAS, [id number] 00:57:00 Test Item Value Reference Range Comments PH ARTERIAL (BEAKER) (test code = 383) 7.36 7.35-7.45 PCO2 ARTERIAL (BEAKER) (test code = 384) 37 mmHg 35-45 PO2 ARTERIAL (BEAKER) (test code = 385) 112 mmHg 80-90 O2 SATURATION ARTERIAL (BEAKER) (test code = 97.6 % 96. 0-97.0 386) HCO3 ARTERIAL (BEAKER) (test code = 388) 20 mmol/L 21-29 BASE EXCESS ARTERIAL (BEAKER) (test code = 387) -4.2 mmol/L -2.0-3.0 PATIENT TEMPERATURE (BEAKER) (test code = 1818) 38.8 C FIO2 (BEAKER) (test code = 1819) 40.0 % GLUCOSE-STAT [id number] 00:57:00 Test Item Value Reference Range Comments GLUCOSE RANDOM (BEAKER) (test code = 652) 131 mg/dL 70-110 HGB/HCT (H&H) - STAT [id number] 00:57:00 Test Item Value Reference Range Comments HEMOGLOBIN (BEAKER) (test code = 410) 12.9 g/dL 13.0-16.8 HEMATOCRIT (BEAKER) (test code = 411) 38.0 % 40.0-50.0 POTASSIUM-STAT [id number] 00:56:00 Test Item Value Reference Range Comments POTASSIUM (BEAKER) (test code = 379) 4.1 meq/L 3.6-5.5 CALCIUM, [id number] 00:56:00 Test Item Value Reference Range Comments CALCIUM IONIZED (BEAKER) (test code = 698) 1.27 mmol/L 1.12- 1.27 PH, BLOOD (BEAKER) (test code = 1810) 7.39 RAD, CHEST, 1 VIEW, NON [id number] 23:28:00Reason for exam:->s/p ACBShould this be performed at the bedside?->YesFINAL REPORT RAD, CHEST, 1 VIEW, NON DEPT INDICATION: s/p ACB COMPARISON: Prior day's exam FINDINGS: Portable frontal view of the chest. IMPRESSION: Support Lines: Interval intubation with the endotracheal tube terminating 4.9 cm above kallie. An tear tube is seen coursing below the diaphragm with tip overlying the gastric fundus. Interval placement of a mediastinal drain aswell as bilateral chest tubes. Interval placement of a right IJ central venous catheter tip overlying the cavoatrial junction.Lungs and pleura: Low lung volumes, with bandlike opacity in the right lungconsistent with atelectasis. Heterogeneous airspace opacity in the left base may represent atelectasis however superimposed infection cannot be excluded. No pleural effusion or pneumothorax. No pneumoth orax.Heart and mediastinum: No widening of the superior mediastinum may be projectional related to technique, continued attention on follow-up. Postsurgical changes of a median sternotomy. Surgical clips over the left mediastinum.Additional findings: None. Signed: Omkra Grant VerifiedDate/Time: 07/21/2018 23:28:57 Reading Location: [address] Transitional Reading Room RAD, CHEST, 1 VIEW, NON [id number] 23:12:00Reason for exam:->hypotensionShould this be performed at the bedside?->YesFINAL REPORT Chest, one view. HISTORY: Hypotension COMPARISON: 07/21/2018 IMPRESSION: No significant change. Supporting hardware unchanged in position. No new or enlarging pleural effusion or pneumothorax. Unchanged patchy interstitial and airspace disease bilaterally. Unchangedenlargement of the cardiomediastinal silhouette. Low lung volumes. Signed: Mian Cooper Verified Date/Time: 07/21/2018 23:12:29 Reading Location: [place] [id number] Consult Reading Room BLOOD GAS, [id number] 22:44:00 Test Item Value Reference Range Comments PH ARTERIAL (BEAKER) (test code = 383) 7.36 7.35-7.45 PCO2 ARTERIAL (BEAKER) (test code = 384) 41 mmHg 35-45 PO2 ARTERIAL (BEAKER) (test code = 385) 170 mmHg 80-90 O2 SATURATION ARTERIAL (BEAKER) (test code = 99.0 % 96. 0-97.0 386) HCO3 ARTERIAL (BEAKER) (test code = 388) 23 mmol/L 21-29 BASE EXCESS ARTERIAL (BEAKER) (test code = 387) -2.0 mmol/L -2.0-3.0 PATIENT TEMPERATURE (BEAKER) (test code = 1818) 39.3 C FIO2 (BEAKER) (test code = 1819) 50.0 % POCT-GLUCOSE [id number] 22:38:00 Test Item Value Reference Range Comments POC-GLUCOSE METER (BEAKER) 157 mg/dL 70-110 TESTE D AT [facility] [address] [facility] (test code = 1538) [place] [id number] POCT-GLUCOSE [id number] 22:38:00 Test Item Value Reference Range Comments POC-GLUCOSE METER (BEAKER) 142 mg/dL 70-110 TESTE D AT [facility] [address] [facility] (test code = 1538) [facility] [address] 030 BLOOD GAS, [id number] 21:18:00 Test Item Value Reference Range Comments PH ARTERIAL (BEAKER) (test code = 383) 7.31 7.35-7.45 PCO2 ARTERIAL (BEAKER) (test code = 384) 47 mmHg 35-45 PO2 ARTERIAL (BEAKER) (test code = 385) 131 mmHg 80-90 O2 SATURATION ARTERIAL (BEAKER) (test code = 98.1 % 96. 0-97.0 386) HCO3 ARTERIAL (BEAKER) (test code = 388) 23 mmol/L 21-29 BASE EXCESS ARTERIAL (BEAKER) (test code = 387) -3.1 mmol/L -2.0-3.0 PATIENT TEMPERATURE (BEAKER) (test code = 1818) 38.4 C FIO2 (BEAKER) (test code = 1819) 50.0 % HGB/HCT (H&H) - STAT [id number] 21:18:00 Test Item Value Reference Range Comments HEMOGLOBIN (BEAKER) (test code = 410) 13.2 g/dL 13.0-16.8 HEMATOCRIT (BEAKER) (test code = 411) 39.0 % 40.0-50.0 (CELLAVISION MANUAL DIFF)2018-07-21 20:15:00 Test Item Value Reference Range Comments NEUTROPHILS - REL (CELLAVISION)(BEAKER) (test 69 % code = 2816) LYMPHOCYTES - REL (CELLAVISION)(BEAKER) (test 8 % code = 2817) MONOCYTES - REL (CELLAVISION)(BEAKER) (test code 4 % = 2818) BANDS - REL (CELLAVISION)(BEAKER) (test code = 18 % 0 -10 2826) NEUTROPHILS - ABS (CELLAVISION)(BEAKER) (test 12.90 K/ul 1. 78-5.38 code = 2830) LYMPHOCYTES - ABS (CELLAVISION)(BEAKER) (test 1.50 K/ul 1. 32-3.57 code = 2831) MONOCYTES - ABS (CELLAVISION)(BEAKER) (test code 0.75 K/uL 0.30-0.82 = 2832) BANDS - ABS (CELLAVISION)(BEAKER) (test code = 3.37 K/uL 0 .00-0.80 2840) TOTAL COUNTED (BEAKER) (test code = 1351) 100 WBC MORPHOLOGY (BEAKER) (test code = 487) Normal PLT MORPHOLOGY (BEAKER) (test code = 486) Normal ANISOCYTOSIS (BEAKER) (test code = 961) 2+ moderate MICROCYTES (BEAKER) (test code = 965) 2+ moderate ARTIFACT (CELLAVISION)(BEAKER) (test code = Present 3432) PLATELET CONCENTRATION (CELLAVISION)(BEAKER) Adequate (test code = 3438) Received comment: User comments: Slide comments:[id number] 20:10:00 Test Item Value Reference Range Comments FIBRINOGEN LEVEL (BEAKER) (test code = 658) 225 mg/dl 225- 434 [id number] 20:09:00 Test Item Value Reference Range Comments MAGNESIUM (BEAKER) (test code = 1.8 mg/dL 1.6-2.6 Specimen slightly hemolyzed 627) [id number] 20:09:00 Test Item Value Reference Range Comments PHOSPHORUS (BEAKER) (test code 2.9 mg/dL 2.3-4.7 S pecimen slightly hemolyzed = 604) [id number] 20:09:00 Test Item Value Reference Range Comments POTASSIUM (BEAKER) (test code = 3.9 meq/L 3.5-5.1 Specimen slightly hemolyzed 379) [id number] 20:09:00 Test Item Value Reference Range Comments SODIUM (BEAKER) (test code = 381) 139 meq/L 136-145 [id number] 20:09:00 Test Item Value Reference Range Comments GLUCOSE RANDOM (BEAKER) (test code = 652) 174 mg/dL 70-105 BASIC METABOLIC [id number] 20:09:00 Test Item Value Reference Range Comments SODIUM (BEAKER) (test 139 meq/L 136-145 code = 381) POTASSIUM (BEAKER) (test 3.9 meq/L 3.5-5.1 Specime n slightly code = 379) hemolyzed CHLORIDE (BEAKER) (test 109 meq/L 98-107 code = 382) CO2 (BEAKER) (test code = 19 meq/L 22-29 355) BLOOD UREA NITROGEN 16 mg/dL 7-21 (BEAKER) (test code = 354) CREATININE (BEAKER) (test 1.03 mg/dL 0.57-1.25 Specim en slightly code = 358) hemolyzed GLUCOSE RANDOM (BEAKER) 174 mg/dL 70-105 (test code = 652) CALCIUM (BEAKER) (test 8.4 mg/dL 8.4-10.2 code = 697) EGFR (BEAKER) (test code 77 mL/min/1.73 sq m EST IMATED GFR IS NOT = 1092) ACCURATE CREA TININE CLEARANCE IN PRE DICTING GLOMERULAR FILTR ATION RATE. ESTIMATED GFR IS NOT APPLICABLE F OR DIALYSIS PATIENT S. PROTHROMBIN TIME/[id number] 20:09:00 Test Item Value Reference Range Comments PROTIME (BEAKER) (test code = 759) 17.7 seconds 11.7-14.7 INR (BEAKER) (test code = 370) 1.5 <=5.9 RECOMMENDED COUMADIN/WARFARIN INR THERAPY RANGESSTANDARD DOSE: 2.0 - 3.0 Includes: PROPHYLAXIS forvenous thrombosis, systemic embolization; TREATMENT for venous thrombosis and/or pulmonary embolus.HIGH RISK: Target INR is 2.5-3.5 for patients with mechanical heart valves.[id number] 20:09:00 Test Item Value Reference Range Comments PARTIAL THROMBOPLASTIN TIME (BEAKER) (test code 28.8 seconds 22.5-36.0 = 760) LACTIC ACID, ARTERIAL, WHOLE [id number] 20:05:00 Test Item Value Reference Range Comments LACTATE BLOOD ARTERIAL (2) 3.6 mmol/L 0.5-2.2 Speci men slightly hemolyzed (BEAKER) (test code = 2874) Effective 03/24/2016: Units/Reference Range ChangeNew: 0.5-2.2 mmol/L Previous: 5-20 mg/dLOXYGEN SATURATION, [id number] 19:54:00 Test Item Value Reference Range Comments O2 SATURATION (MEASURED) (BEAKER) (test code = 1455) 60.3 % CBC W/PLT COUNT & AUTO [id number] 19:51:00 Test Item Value Reference Range Comments WHITE BLOOD CELL COUNT (BEAKER) (test code = 18.7 K/ L 3.5 -10.5 775) RED BLOOD CELL COUNT (BEAKER) (test code = 761) 4.21 M/ L 4.63-6.08 HEMOGLOBIN (BEAKER) (test code = 410) 12.8 GM/DL 13.7-17.5 HEMATOCRIT (BEAKER) (test code = 411) 37.0 % 40.1-51.0 MEAN CORPUSCULAR VOLUME (BEAKER) (test code = 87.9 fL 79 .0-92.2 753) MEAN CORPUSCULAR HEMOGLOBIN (BEAKER) (test code 30.4 pg 25.7-32.2 = 751) MEAN CORPUSCULAR HEMOGLOBIN CONC (BEAKER) (test 34.6 GM/DL 32.3-36.5 code = 752) RED CELL DISTRIBUTION WIDTH (BEAKER) (test code 11.8 % 11.6-14.4 = 412) PLATELET COUNT (BEAKER) (test code = 756) 170 K/CU MM 150-45 0 MEAN PLATELET VOLUME (BEAKER) (test code = 754) 10.8 fL 9.4-12.4 NUCLEATED RED BLOOD CELLS (BEAKER) (test code = 0 /100 WBC 0-0 413) NEUTROPHILS RELATIVE PERCENT (BEAKER) (test code 75 % = 429) LYMPHOCYTES RELATIVE PERCENT (BEAKER) (test code 14 % = 430) MONOCYTES RELATIVE PERCENT (BEAKER) (test code = 10 % 431) EOSINOPHILS RELATIVE PERCENT (BEAKER) (test code 0 % = 432) BASOPHILS RELATIVE PERCENT (BEAKER) (test code = 0 % 437) NEUTROPHILS ABSOLUTE COUNT (BEAKER) (test code = 14.06 K/ L 1.78-5.38 670) LYMPHOCYTES ABSOLUTE COUNT (BEAKER) (test code = 2.57 K/ L 1.32-3.57 414) MONOCYTES ABSOLUTE COUNT (BEAKER) (test code = 1.81 K/ L 0 .30-0.82 415) EOSINOPHILS ABSOLUTE COUNT (BEAKER) (test code = 0.05 K/ L 0.04-0.54 416) BASOPHILS ABSOLUTE COUNT (BEAKER) (test code = 0.04 K/ L 0 .01-0.08 417) IMMATURE GRANULOCYTES-RELATIVE PERCENT (BEAKER) 1 % 0-1 (test code = 2801) CALCIUM, [id number] 19:50:00 Test Item Value Reference Range Comments CALCIUM IONIZED (BEAKER) (test code = 698) 1.06 mmol/L 1.12- 1.27 PH, BLOOD (BEAKER) (test code = 1810) 7.32 GLUCOSE-STAT [id number] 19:50:00 Test Item Value Reference Range Comments GLUCOSE RANDOM (BEAKER) (test code = 652) 178 mg/dL 70-110 HGB/HCT (H&H) - STAT [id number] 19:50:00 Test Item Value Reference Range Comments HEMOGLOBIN (BEAKER) (test code = 410) 13.3 GM/DL 13.0-16.8 HEMATOCRIT (BEAKER) (test code = 411) 39.0 % 40.0-50.0 BLOOD GAS, [id number] 19:50:00 Test Item Value Reference Range Comments PH ARTERIAL (BEAKER) (test code = 383) 7.32 7.35-7.45 PCO2 ARTERIAL (BEAKER) (test code = 384) 45 mmHg 35-45 PO2 ARTERIAL (BEAKER) (test code = 385) 100 mmHg 80-90 O2 SATURATION ARTERIAL (BEAKER) (test code = 96.9 % 96. 0-97.0 386) HCO3 ARTERIAL (BEAKER) (test code = 388) 23 mmol/L 21-29 BASE EXCESS ARTERIAL (BEAKER) (test code = 387) -3.4 mmol/L -2.0-3.0 PATIENT TEMPERATURE (BEAKER) (test code = 1818) 37.6 C FIO2 (BEAKER) (test code = 1819) 60.0 % SODIUM NA-STAT [id number] 19:49:00 Test Item Value Reference Range Comments SODIUM (BEAKER) (test code = 381) 137 meq/L 135-148 POTASSIUM-STAT [id number] 19:49:00 Test Item Value Reference Range Comments POTASSIUM (BEAKER) (test code = 379) 3.8 meq/L 3.6-5.5 HEMOGLOBIN-STAT [id number] 19:49:00 Test Item Value Reference Range Comments HEMOGLOBIN (BEAKER) (test code = 410) 13.3 g/dL 13.0-16.8 BLOOD GAS, [id number] 18:43:00 Test Item Value Reference Range Comments PH ARTERIAL (BEAKER) (test code = 383) 7.41 7.35-7.45 PCO2 ARTERIAL (BEAKER) (test code = 384) 36 mmHg 35-45 PO2 ARTERIAL (BEAKER) (test code = 385) 283 mmHg 80-90 O2 SATURATION ARTERIAL (BEAKER) (test code = 99.7 % 96. 0-97.0 386) HCO3 ARTERIAL (BEAKER) (test code = 388) 22 mmol/L 21-29 BASE EXCESS ARTERIAL (BEAKER) (test code = 387) -2.0 mmol/L -2.0-3.0 PATIENT TEMPERATURE (BEAKER) (test code = 1818) 36.9 C FIO2 (BEAKER) (test code = 1819) 100.0 % GLUCOSE-STAT [id number] 18:43:00 Test Item Value Reference Range Comments GLUCOSE RANDOM (BEAKER) (test code = 652) 165 mg/dL 70-110 HGB/HCT (H&H) - STAT [id number] 18:43:00 Test Item Value Reference Range Comments HEMOGLOBIN (BEAKER) (test code = 410) 12.1 g/dL 13.0-16.8 HEMATOCRIT (BEAKER) (test code = 411) 36.0 % 40.0-50.0 CALCIUM, [id number] 18:43:00 Test Item Value Reference Range Comments CALCIUM IONIZED (BEAKER) (test code = 698) 1.12 mmol/L 1.12- 1.27 PH, BLOOD (BEAKER) (test code = 1810) 7.41 SODIUM NA-STAT [id number] 18:42:00 Test Item Value Reference Range Comments SODIUM (BEAKER) (test code = 381) 136 meq/L 135-148 POTASSIUM-STAT [id number] 18:42:00 Test Item Value Reference Range Comments POTASSIUM (BEAKER) (test code = 379) 4.0 meq/L 3.6-5.5 [id number] 18:37:00 Test Item Value Reference Range Comments ACTIVATED CLOTTING TIME 103 sec TESTED A T [facility] [address] (BEAKER) (test code = 441) [place] [address] [id number] 18:37:00 Test Item Value Reference Range Comments ACTIVATED CLOTTING TIME 378 sec TESTED A T [facility] [address] (BEAKER) (test code = 441) [place] [address] [id number] 18:37:00 Test Item Value Reference Range Comments ACTIVATED CLOTTING TIME 439 sec TESTED A T [facility] [address] (BEAKER) (test code = 441) [place] [address] [id number] 18:37:00 Test Item Value Reference Range Comments ACTIVATED CLOTTING TIME 483 sec TESTED A T [facility] [address] (BEAKER) (test code = 441) [place] [address] [id number] 18:37:00 Test Item Value Reference Range Comments ACTIVATED CLOTTING TIME 439 sec TESTED A T [facility] [address] (BEAKER) (test code = 441) [place] [address] [id number] 18:37:00 Test Item Value Reference Range Comments ACTIVATED CLOTTING TIME 510 sec TESTED A T [facility] [address] (BEAKER) (test code = 441) [place] [address] [id number] 18:37:00 Test Item Value Reference Range Comments ACTIVATED CLOTTING TIME 444 sec TESTED A T [facility] [address] (BEAKER) (test code = 441) [place] [address] THROMBOELASTOGRAPH ([id number] 18:35:00 Test Item Value Reference Range Comments TEG ACTIVATED CLOTTING TIME (BEAKER) (test code 5.6 minutes 4.0-7.0 = 1407) TEG FIBRINOGEN ACTIVITY (BEAKER) (test code = 63.7 degrees 61 .0-73.0 1408) TEG PLT. AGGREGATION (BEAKER) (test code = 57.1 MM 55.0- 65.0 1409) TGH ACTIVATED CLOTTING TIME (BEAKER) (test code 5.4 minutes 4.0-7.0 = 1411) TGH FIBRINOGEN ACTIVITY (BEAKER) (test code = 60.6 degrees 61 .0-73.0 1412) TGH PLT. AGGREGATION (BEAKER) (test code = 53.4 MM 55.0- 65.0 1413) PROTHROMBIN TIME/[id number] 18:10:00 Test Item Value Reference Range Comments PROTIME (BEAKER) (test code = 759) 21.1 seconds 11.7-14.7 INR (BEAKER) (test code = 370) 1.8 <=5.9 RECOMMENDED COUMADIN/WARFARIN INR THERAPY RANGESSTANDARD DOSE: 2.0 - 3.0 Includes: PROPHYLAXIS forvenous thrombosis, systemic embolization; TREATMENT for venous thrombosis and/or pulmonary embolus.HIGH RISK: Target INR is 2.5-3.5 for patients with mechanical heart valves.[id number] 18:10:00 Test Item Value Reference Range Comments PARTIAL THROMBOPLASTIN TIME (BEAKER) (test code 29.8 seconds 22.5-36.0 = 760) [id number] 18:10:00 Test Item Value Reference Range Comments FIBRINOGEN LEVEL (BEAKER) (test code = 658) 175 mg/dl 225- 434 PLATELET [id number] 18:01:00 Test Item Value Reference Range Comments PLATELET COUNT (BEAKER) (test code = 756) 93 K/CU MM 150-45 0 CALCIUM, [id number] 17:54:00 Test Item Value Reference Range Comments CALCIUM IONIZED (BEAKER) (test code = 698) 0.90 mmol/L 1.12- 1.27 PH, BLOOD (BEAKER) (test code = 1810) 7.39 BLOOD GAS, [id number] 17:54:00 Test Item Value Reference Range Comments PH ARTERIAL (BEAKER) (test code = 383) 7.41 7.35-7.45 PCO2 ARTERIAL (BEAKER) (test code = 384) 35 mmHg 35-45 PO2 ARTERIAL (BEAKER) (test code = 385) 282 mmHg 80-90 O2 SATURATION ARTERIAL (BEAKER) (test code = 99.7 % 96. 0-97.0 386) HCO3 ARTERIAL (BEAKER) (test code = 388) 22 mmol/L 21-29 BASE EXCESS ARTERIAL (BEAKER) (test code = 387) -2.5 mmol/L -2.0-3.0 PATIENT TEMPERATURE (BEAKER) (test code = 1818) 36.6 C FIO2 (BEAKER) (test code = 1819) 100.0 % GLUCOSE-STAT [id number] 17:53:00 Test Item Value Reference Range Comments GLUCOSE RANDOM (BEAKER) (test code = 652) 182 mg/dL 70-110 HGB/HCT (H&H) - STAT [id number] 17:53:00 Test Item Value Reference Range Comments HEMOGLOBIN (BEAKER) (test code = 410) 10.1 g/dL 13.0-16.8 HEMATOCRIT (BEAKER) (test code = 411) 30.0 % 40.0-50.0 SODIUM NA-STAT [id number] 17:52:00 Test Item Value Reference Range Comments SODIUM (BEAKER) (test code = 381) 137 meq/L 135-148 POTASSIUM-STAT [id number] 17:52:00 Test Item Value Reference Range Comments POTASSIUM (BEAKER) (test code = 379) 4.6 meq/L 3.6-5.5 BLOOD GAS, [id number] 17:23:00 Test Item Value Reference Range Comments PH ARTERIAL (BEAKER) (test code = 383) 7.36 7.35-7.45 PCO2 ARTERIAL (BEAKER) (test code = 384) 45 mmHg 35-45 PO2 ARTERIAL (BEAKER) (test code = 385) 272 mmHg 80-90 O2 SATURATION ARTERIAL (BEAKER) (test code = 99.6 % 96. 0-97.0 386) HCO3 ARTERIAL (BEAKER) (test code = 388) 25 mmol/L 21-29 BASE EXCESS ARTERIAL (BEAKER) (test code = 387) -1.1 mmol/L -2.0-3.0 PATIENT TEMPERATURE (BEAKER) (test code = 1818) 35.8 C FIO2 (BEAKER) (test code = 1819) 70.0 % GLUCOSE-STAT [id number] 17:23:00 Test Item Value Reference Range Comments GLUCOSE RANDOM (BEAKER) (test code = 652) 200 mg/dL 70-110 HGB/HCT (H&H) - STAT [id number] 17:23:00 Test Item Value Reference Range Comments HEMOGLOBIN (BEAKER) (test code = 410) 10.4 g/dL 13.0-16.8 HEMATOCRIT (BEAKER) (test code = 411) 31.0 % 40.0-50.0 SODIUM NA-STAT [id number] 17:22:00 Test Item Value Reference Range Comments SODIUM (BEAKER) (test code = 381) 138 meq/L 135-148 POTASSIUM-STAT [id number] 17:22:00 Test Item Value Reference Range Comments POTASSIUM (BEAKER) (test code = 379) 5.3 meq/L 3.6-5.5 BLOOD GAS, [id number] 16:32:00 Test Item Value Reference Range Comments PH ARTERIAL (BEAKER) (test code = 383) 7.34 7.35-7.45 PCO2 ARTERIAL (BEAKER) (test code = 384) 43 mmHg 35-45 PO2 ARTERIAL (BEAKER) (test code = 385) 255 mmHg 80-90 O2 SATURATION ARTERIAL (BEAKER) (test code = 99.5 % 96. 0-97.0 386) HCO3 ARTERIAL (BEAKER) (test code = 388) 23 mmol/L 21-29 BASE EXCESS ARTERIAL (BEAKER) (test code = 387) -3.1 mmol/L -2.0-3.0 PATIENT TEMPERATURE (BEAKER) (test code = 1818) 36.0 C FIO2 (BEAKER) (test code = 1819) 70.0 % SODIUM NA-STAT [id number] 16:32:00 Test Item Value Reference Range Comments SODIUM (BEAKER) (test code = 381) 134 meq/L 135-148 POTASSIUM-STAT [id number] 16:32:00 Test Item Value Reference Range Comments POTASSIUM (BEAKER) (test code = 379) 6.3 meq/L 3.6-5.5 GLUCOSE-STAT [id number] 16:32:00 Test Item Value Reference Range Comments GLUCOSE RANDOM (BEAKER) (test code = 652) 228 mg/dL 70-110 HGB/HCT (H&H) - STAT [id number] 16:32:00 Test Item Value Reference Range Comments HEMOGLOBIN (BEAKER) (test code = 410) 10.6 g/dL 13.0-16.8 HEMATOCRIT (BEAKER) (test code = 411) 31.0 % 40.0-50.0 BLOOD GAS, [id number] 16:01:00 Test Item Value Reference Range Comments PH ARTERIAL (BEAKER) (test code = 383) 7.38 7.35-7.45 PCO2 ARTERIAL (BEAKER) (test code = 384) 38 mmHg 35-45 PO2 ARTERIAL (BEAKER) (test code = 385) 349 mmHg 80-90 O2 SATURATION ARTERIAL (BEAKER) (test code = 99.8 % 96. 0-97.0 386) HCO3 ARTERIAL (BEAKER) (test code = 388) 24 mmol/L 21-29 BASE EXCESS ARTERIAL (BEAKER) (test code = 387) -2.9 mmol/L -2.0-3.0 PATIENT TEMPERATURE (BEAKER) (test code = 1818) 29.1 C FIO2 (BEAKER) (test code = 1819) 65.0 % SODIUM NA-STAT [id number] 16:01:00 Test Item Value Reference Range Comments SODIUM (BEAKER) (test code = 381) 130 meq/L 135-148 GLUCOSE-STAT [id number] 16:01:00 Test Item Value Reference Range Comments GLUCOSE RANDOM (BEAKER) (test code = 652) 253 mg/dL 70-110 HGB/HCT (H&H) - STAT [id number] 16:01:00 Test Item Value Reference Range Comments HEMOGLOBIN (BEAKER) (test code = 410) 10.7 g/dL 13.0-16.8 HEMATOCRIT (BEAKER) (test code = 411) 31.0 % 40.0-50.0 POTASSIUM-STAT [id number] 16:01:00 Test Item Value Reference Range Comments POTASSIUM (BEAKER) (test code = 379) 6.3 meq/L 3.6-5.5 BLOOD GAS, [id number] 15:31:00 Test Item Value Reference Range Comments PH ARTERIAL (BEAKER) (test code = 383) 7.37 7.35-7.45 PCO2 ARTERIAL (BEAKER) (test code = 384) 38 mmHg 35-45 PO2 ARTERIAL (BEAKER) (test code = 385) 350 mmHg 80-90 O2 SATURATION ARTERIAL (BEAKER) (test code = 99.8 % 96. 0-97.0 386) HCO3 ARTERIAL (BEAKER) (test code = 388) 24 mmol/L 21-29 BASE EXCESS ARTERIAL (BEAKER) (test code = 387) -3.5 mmol/L -2.0-3.0 PATIENT TEMPERATURE (BEAKER) (test code = 1818) 29.3 C FIO2 (BEAKER) (test code = 1819) 65.0 % SODIUM NA-STAT [id number] 15:31:00 Test Item Value Reference Range Comments SODIUM (BEAKER) (test code = 381) 127 meq/L 135-148 POTASSIUM-STAT [id number] 15:31:00 Test Item Value Reference Range Comments POTASSIUM (BEAKER) (test code = 379) 6.7 meq/L 3.6-5.5 GLUCOSE-STAT [id number] 15:31:00 Test Item Value Reference Range Comments GLUCOSE RANDOM (BEAKER) (test code = 652) 239 mg/dL 70-110 HGB/HCT (H&H) - STAT [id number] 15:31:00 Test Item Value Reference Range Comments HEMOGLOBIN (BEAKER) (test code = 410) 11.2 g/dL 13.0-16.8 HEMATOCRIT (BEAKER) (test code = 411) 33.0 % 40.0-50.0 BLOOD GAS, [id number] 15:04:00 Test Item Value Reference Range Comments PH ARTERIAL (BEAKER) (test code = 383) 7.43 7.35-7.45 PCO2 ARTERIAL (BEAKER) (test code = 384) 31 mmHg 35-45 PO2 ARTERIAL (BEAKER) (test code = 385) 459 mmHg 80-90 O2 SATURATION ARTERIAL (BEAKER) (test code = 99.9 % 96. 0-97.0 386) HCO3 ARTERIAL (BEAKER) (test code = 388) 22 mmol/L 21-29 BASE EXCESS ARTERIAL (BEAKER) (test code = 387) -4.0 mmol/L -2.0-3.0 PATIENT TEMPERATURE (BEAKER) (test code = 1818) 27.7 C FIO2 (BEAKER) (test code = 1819) 80.0 % SODIUM NA-STAT [id number] 15:04:00 Test Item Value Reference Range Comments SODIUM (BEAKER) (test code = 381) 125 meq/L 135-148 POTASSIUM-STAT [id number] 15:04:00 Test Item Value Reference Range Comments POTASSIUM (BEAKER) (test code = 379) 6.2 meq/L 3.6-5.5 GLUCOSE-STAT [id number] 15:04:00 Test Item Value Reference Range Comments GLUCOSE RANDOM (BEAKER) (test code = 652) 220 mg/dL 70-110 HGB/HCT (H&H) - STAT [id number] 15:04:00 Test Item Value Reference Range Comments HEMOGLOBIN (BEAKER) (test code = 410) 10.6 g/dL 13.0-16.8 HEMATOCRIT (BEAKER) (test code = 411) 31.0 % 40.0-50.0 BLOOD GAS, [id number] 13:03:00 Test Item Value Reference Range Comments PH ARTERIAL (BEAKER) (test code = 383) 7.42 7.35-7.45 PCO2 ARTERIAL (BEAKER) (test code = 384) 39 mmHg 35-45 PO2 ARTERIAL (BEAKER) (test code = 385) 129 mmHg 80-90 O2 SATURATION ARTERIAL (BEAKER) (test code = 386) 98.7 % 96.0-97.0 HCO3 ARTERIAL (BEAKER) (test code = 388) 25 mmol/L 21-29 BASE EXCESS ARTERIAL (BEAKER) (test code = 387) 0.2 mmol/L -2.0-3.0 PATIENT TEMPERATURE (BEAKER) (test code = 1818) 36.5 C FIO2 (BEAKER) (test code = 1819) 100.0 % GLUCOSE-STAT [id number] 13:03:00 Test Item Value Reference Range Comments GLUCOSE RANDOM (BEAKER) (test code = 652) 139 mg/dL 70-110 SODIUM NA-STAT [id number] 13:02:00 Test Item Value Reference Range Comments SODIUM (BEAKER) (test code = 381) 136 meq/L 135-148 POTASSIUM-STAT [id number] 13:02:00 Test Item Value Reference Range Comments POTASSIUM (BEAKER) (test code = 379) 4.1 meq/L 3.6-5.5 HGB/HCT (H&H) - STAT [id number] 13:02:00 Test Item Value Reference Range Comments HEMOGLOBIN (BEAKER) (test code = 410) 14.8 g/dL 13.0-16.8 HEMATOCRIT (BEAKER) (test code = 411) 44.0 % 40.0-50.0 HEMOGLOBIN [id number] 11:07:00 Test Item Value Reference Range Comments HEMOGLOBIN A1C (BEAKER) (test code = 368) 5.5 % 4.3-6. 1 RAD, CHEST, 1 VIEW, NON [id number] 22:39:00Reason for exam:->Pre opShould this be performed at the bedside?->YesFINAL REPORT Chest, one view HISTORY: Pre-op COMPARISON: None. DISCUSSION: Lungs are clear without focal consolidation. Cardiomediastinal silhouette is unremarkable. No acute osseous abnormality. No pleural effusion or pneumothorax. Visualized portions of the upper abdomen are unremarkable. IMPRESSION: No acute cardiopulmonary abnormality. Signed: Mian Cooper Verified Date/Time: 07/20/2018 22:39:30 Reading Location: [facility] C0[facility] Consult Reading Room [facility] 2018-07-20 22:02:00 Test Item Value Reference Range Comments THYROID STIMULATING HORMONE (BEAKER) (test code 1.71 uIU/mL 0.35-4.94 = 772) [id number] 21:44:00 Test Item Value Reference Range Comments MAGNESIUM (BEAKER) (test code = 627) 2.6 mg/dL 1.6-2.6 COMPREHENSIVE METABOLIC [id number] 21:44:00 Test Item Value Reference Range Comments TOTAL PROTEIN (BEAKER) 8.0 gm/dL 6.0-8.3 (test code = 770) ALBUMIN (BEAKER) (test 4.9 g/dL 3.5-5.0 code = 1145) ALKALINE PHOSPHATASE 74 U/L 40-150 (BEAKER) (test code = 346) BILIRUBIN TOTAL (BEAKER) 1.1 mg/dL 0.2-1.2 (test code = 377) SODIUM (BEAKER) (test code 135 meq/L 136-145 = 381) POTASSIUM (BEAKER) (test 4.1 meq/L 3.5-5.1 code = 379) CHLORIDE (BEAKER) (test 101 meq/L 98-107 code = 382) CO2 (BEAKER) (test code = 26 meq/L 22-29 355) BLOOD UREA NITROGEN 17 mg/dL 7-21 (BEAKER) (test code = 354) CREATININE (BEAKER) (test 1.25 mg/dL 0.57-1.25 code = 358) GLUCOSE RANDOM (BEAKER) 100 mg/dL 70-105 (test code = 652) CALCIUM (BEAKER) (test 9.8 mg/dL 8.4-10.2 code = 697) AST (SGOT) (BEAKER) (test 26 U/L 5-34 code = 353) ALT (SGPT) (BEAKER) (test 35 U/L 6-55 code = 347) EGFR (BEAKER) (test code = 62 mL/min/1.73 sq m E STIMATED GFR IS NOT 1092) ACCURATE CREA TININE CLEARANCE IN PRE DICTING GLOMERULAR FILTR ATION RATE. ESTIMATED GFR IS NOT APPLICABLE F OR DIALYSIS PATIENT S. LIPID [id number] 21:44:00 Test Item Value Reference Range Comments TRIGLYCERIDES (BEAKER) (test code = 540) 203 mg/dL CHOLESTEROL (BEAKER) (test code = 631) 223 mg/dL HDL CHOLESTEROL (BEAKER) (test code = 976) 32 mg/dL LDL CHOLESTEROL CALCULATED (BEAKER) (test code = 150 mg/dL 633) Triglyceride Reference Range: Low Risk <150 Borderline 150-199 High Risk 200-499 Very High Risk >=500Cholesterol Reference Range: Low Risk <200 Borderline 200-239 High Risk >240HDL Cholesterol Reference Range: Low Risk >=60 High Risk <40LDL Cholesterol Reference Range: Optimal <100 Near Optimal 100-129 Borderline 130-159 High 160-189 Very High >=[id number] 21:42:00 Test Item Value Reference Range Comments PARTIAL THROMBOPLASTIN TIME (BEAKER) (test code 29.6 seconds 22.5-36.0 = 760) PROTHROMBIN TIME/[id number] 21:41:00 Test Item Value Reference Range Comments PROTIME (BEAKER) (test code = 759) 14.6 seconds 11.7-14.7 INR (BEAKER) (test code = 370) 1.1 <=5.9 RECOMMENDED COUMADIN/WARFARIN INR THERAPY RANGESSTANDARD DOSE: 2.0 - 3.0 Includes: PROPHYLAXIS forvenous thrombosis, systemic embolization; TREATMENT for venous thrombosis and/or pulmonary embolus.HIGH RISK: Target INR is 2.5-3.5 for patients with mechanical heart valves.URINALYSIS W/ [id number] 21:36:00 Test Item Value Reference Range Comments COLOR (BEAKER) (test code = 470) Yellow CLARITY (BEAKER) (test code = 469) Clear SPECIFIC GRAVITY UA (BEAKER) (test code = 1.025 1.001- 1.035 468) PH UA (BEAKER) (test code = 467) 6.0 5.0-8.0 PROTEIN UA (BEAKER) (test code = 464) Negative Negative GLUCOSE UA (BEAKER) (test code = 365) Negative Negative KETONES UA (BEAKER) (test code = 371) Negative Negative BILIRUBIN UA (BEAKER) (test code = 462) Negative Negative BLOOD UA (BEAKER) (test code = 461) Negative Negative NITRITE UA (BEAKER) (test code = 465) Negative Negative LEUKOCYTE ESTERASE UA (BEAKER) (test code Negative Negati ve = 466) UROBILINOGEN UA (BEAKER) (test code = 2.0 mg/dL 0.2-1.0 463) RBC UA (BEAKER) (test code = 519) < /HPF WBC UA (BEAKER) (test code = 520) < /HPF MUCUS (BEAKER) (test code = 1574) Rare SOURCE(BEAKER) (test code = 2795) Urine, Clean Catch CBC W/PLT COUNT & AUTO [id number] 21:30:00 Test Item Value Reference Range Comments WHITE BLOOD CELL COUNT (BEAKER) (test code = 7.5 K/ L 3.5 -10.5 775) RED BLOOD CELL COUNT (BEAKER) (test code = 761) 5.15 M/ L 4.63-6.08 HEMOGLOBIN (BEAKER) (test code = 410) 15.4 GM/DL 13.7-17.5 HEMATOCRIT (BEAKER) (test code = 411) 44.9 % 40.1-51.0 MEAN CORPUSCULAR VOLUME (BEAKER) (test code = 87.2 fL 79 .0-92.2 753) MEAN CORPUSCULAR HEMOGLOBIN (BEAKER) (test code 29.9 pg 25.7-32.2 = 751) MEAN CORPUSCULAR HEMOGLOBIN CONC (BEAKER) (test 34.3 GM/DL 32.3-36.5 code = 752) RED CELL DISTRIBUTION WIDTH (BEAKER) (test code 11.9 % 11.6-14.4 = 412) PLATELET COUNT (BEAKER) (test code = 756) 250 K/CU MM 150-45 0 MEAN PLATELET VOLUME (BEAKER) (test code = 754) 10.5 fL 9.4-12.4 NUCLEATED RED BLOOD CELLS (BEAKER) (test code = 0 /100 WBC 0-0 413) NEUTROPHILS RELATIVE PERCENT (BEAKER) (test code 63 % = 429) LYMPHOCYTES RELATIVE PERCENT (BEAKER) (test code 24 % = 430) MONOCYTES RELATIVE PERCENT (BEAKER) (test code = 11 % 431) EOSINOPHILS RELATIVE PERCENT (BEAKER) (test code 1 % = 432) BASOPHILS RELATIVE PERCENT (BEAKER) (test code = 0 % 437) NEUTROPHILS ABSOLUTE COUNT (BEAKER) (test code = 4.77 K/ L 1.78-5.38 670) LYMPHOCYTES ABSOLUTE COUNT (BEAKER) (test code = 1.80 K/ L 1.32-3.57 414) MONOCYTES ABSOLUTE COUNT (BEAKER) (test code = 0.81 K/ L 0 .30-0.82 415) EOSINOPHILS ABSOLUTE COUNT (BEAKER) (test code = 0.10 K/ L 0.04-0.54 416) BASOPHILS ABSOLUTE COUNT (BEAKER) (test code = 0.03 K/ L 0 .01-0.08 417) IMMATURE GRANULOCYTES-RELATIVE PERCENT (BEAKER) 0 % 0-1 (test code = 2801)
[2020-03-22 22:19] LABS: Absolute Lymphocytes (CBC) 2.3 K/uL (0.7-4.9); Basophils % 0.7 % (0-1.3); Hematocrit 41.2 % (39.6-49.0); Lymphocytes % 31.5 % (15.3-44.8); MPV 9.5 fL (7.6-11.3)
[2020-03-22] MEDS ORDERED: NA CHLORIDE 0.9% 500 ML ONE (22:34)
[2020-03-22] MEDS ORDERED: NA CHLORIDE 0.9% 1,000 ML ONE (22:34)
[2020-03-22] MEDS ORDERED: ONDANSETRON 4 MG/2 ML VIAL ONE (22:34)
[2020-03-22] MEDS ORDERED: MORPHINE 2 MG/ML SYR ONE (22:34)
[2020-03-22 22:38] LABS: Albumin 4.1 g/dL (3.4-5.0); Bilirubin Direct 0.1 mg/dL (0-0.2); Bilirubin Total 0.5 mg/dL (0.2-1.0); Potassium 4.3 mmol/L (3.5-5.1); Protein, Total 7.1 g/dL (6.4-8.2)
[2020-03-22 22:50] LABS: Magnesium 1.9 mg/dL (1.8-2.4); Troponin (Emerg Dept Use Only) < 0.02 ng/mL (0.0-0.045)
--- NOTE | 2020-03-23 01:59 | EDPHYS ---
Physician Documentation [facility] Name: Steven Morillo Age: 49 yrs Sex: Male : 1970 Arrival Date: 03/22/2020 Time: 20:29 Bed 15 Private MD: JOVANY Physician Hai Mcfadden HPI: 03/22 22:18 This 49 yrs old Male presents to ER via Ambulatory with complaints of abby Abdominal Pain, Back Pain. 22:18 The patient presents with pain that is acute, with no known mechanism of injury. The abby symptoms are located in the right subscapular area and right mid back. Onset: The symptoms/episode began/occurred 2 day(s) ago. The pain radiates to the right subscapular area and right mid back. Associated signs and symptoms: The patient has no apparent associated signs or symptoms. The problem was sustained from unknown cause. Modifying factors: The patient symptoms are alleviated by nothing, the patient symptoms are aggravated by nothing, food. Severity of symptoms: At their worst the symptoms were mild, moderate, in the emergency department the symptoms are unchanged. 22:20 The patient presents with abdominal pain in the right upper quadrant. Onset: The abby symptoms/episode began/occurred 3 day(s) ago. The symptoms radiate to right back, right subscapular area and right mid back. Historical: - Allergies: 20:34 No Known Allergies; ca1 - Home Meds: 20:34 Lipitor 80 mg oral tab 1 tab once daily [Active]; aspirin 81 mg Oral chew 1 tab once ca1 daily [Active]; metoprolol tartrate 25 mg Oral tab 1 tab once daily [Active]; - PMHx: 20:34 Hyperlipidemia; Hypertension; CAD; ca1 - PSHx: 20:34 Shoulder; Hernia repair; CABG; ca1 - Immunization history:: Adult Immunizations up to date, Flu vaccine is not up to date. - Social history:: Smoking status: Patient denies any tobacco usage or history of. - Family history:: not pertinent. ROS: 22:20 Constitutional: Negative for fever, chills, and weight loss, Eyes: Negative for injury, abby pain, redness, and discharge, ENT: Negative for injury, pain, and discharge, Neck: Negative for injury, pain, and swelling, Cardiovascular: Negative for chest pain, palpitations, and edema, Respiratory: Negative for shortness of breath, cough, wheezing, and pleuritic chest pain, Back: Negative for injury and pain, : Negative for injury, bleeding, discharge, and swelling, MS/Extremity: Negative for injury and deformity, Skin: Negative for injury, rash, and discoloration, Neuro: Negative for headache, weakness, numbness, tingling, and seizure, Psych: Negative for depression, anxiety, suicide ideation, homicidal ideation, and hallucinations, Allergy/Immunology: Negative for hives, rash, and allergies, Endocrine: Negative for neck swelling, polydipsia, polyuria, polyphagia, and marked weight changes, Hematologic/Lymphatic: Negative for swollen nodes, abnormal bleeding, and unusual bruising. 22:20 Abdomen/GI: Positive for abdominal pain, abdominal cramps, of the right upper quadrant. Exam: 22:20 Constitutional: This is a well developed, well nourished patient who is awake, alert, abby and in no acute distress. Head/Face: Normocephalic, atraumatic. Eyes: Pupils equal round and reactive to light, extra-ocular motions intact. Lids and lashes normal. Conjunctiva and sclera are non-icteric and not injected. Cornea within normal limits. Periorbital areas with no swelling, redness, or edema. ENT: Nares patent. No nasal discharge, no septal abnormalities noted. Tympanic membranes are normal and external auditory canals are clear. Oropharynx with no redness, swelling, or masses, exudates, or evidence of obstruction, uvula midline. Mucous membranes moist. Neck: Trachea midline, no thyromegaly or masses palpated, and no cervical lymphadenopathy. Supple, full range of motion without nuchal rigidity, or vertebral point tenderness. No Meningismus. Chest/axilla: Normal chest wall appearance and motion. Nontender with no deformity. No lesions are appreciated. Cardiovascular: Regular rate and rhythm with a normal S1 and S2. No gallops, murmurs, or rubs. Normal PMI, no JVD. No pulse deficits. Respiratory: Lungs have equal breath sounds bilaterally, clear to auscultation and percussion. No rales, rhonchi or wheezes noted. No increased work of breathing, no retractions or nasal flaring. Back: No spinal tenderness. No costovertebral tenderness. Full range of motion. Male : Normal genitalia with no discharge or lesions. Skin: Warm, dry with normal turgor. Normal color with no rashes, no lesions, and no evidence of cellulitis. MS/ Extremity: Pulses equal, no cyanosis. Neurovascular intact. Full, normal range of motion. Neuro: Awake and alert, GCS 15, oriented to person, place, time, and situation. Cranial nerves II-XII grossly intact. Motor strength 5/5 in all extremities. Sensory grossly intact. Cerebellar exam normal. Normal gait. Psych: Awake, alert, with orientation to person, place and time. Behavior, mood, and affect are within normal limits. 22:20 Abdomen/GI: Inspection: abdomen appears normal, Bowel sounds: normal, Palpation: mild abdominal tenderness, in the right upper quadrant. 22:20 Musculoskeletal/extremity: DVT Exam: No signs of deep vein thrombosis. no pain, no swelling, no tenderness, negative Homans' sign noted on exam, no appreciated bluish discoloration, no erythema, no increased warmth. 22:36 ECG was reviewed by the Attending Physician. abby Vital Signs: 20:32 BP 128 / 82; Pulse 80; Resp 17 S; Temp 98.7(O); Pulse Ox 97% on R/A; Weight 96.16 kg ca1 (R); Height 5 ft. 11 in. (180.34 cm) (R); Pain 7/10; 22:15 BP 127 / 83; Pulse 71; Resp 16 S; Pulse Ox 98% on R/A; ca1 23:06 BP 142 / 96; Pulse 67; Resp 20 S; Pulse Ox 98% on R/A; ca1 23:12 BP 142 / 96; Pulse 73; Resp 18; Pulse Ox 100% ; bb3 23:13 BP 142 / 96; Pulse 71; Resp 18; Pulse Ox 100% ; Pain 2/10; bb3 05/03 00:41 BP 127 / 90; Pulse 81; Resp 18; Pulse Ox 99% ; Pain 2/10; bb3 01:30 BP 116 / 80; Pulse 86; Resp 18; Temp 98; Pulse Ox 100% on R/A; mg2 01:31 BP 116 / 80; Pulse 68; Resp 18; Pulse Ox 98% ; Pain 3/10; bb3 02:10 BP 122 / 81; Pulse 67; Resp 18; Pulse Ox 100% ; Pain 3/10; bb3 03/22 20:32 Body Mass Index 29.57 (96.16 kg, 180.34 cm) ca1 MDM: 03/22 21:54 Patient medically screened. [facility] 22:22 Data reviewed: vital signs, nurses notes, lab test result(s), EKG, radiologic studies, [facility] CT scan, plain films. 22:22 Differential diagnosis: Cholelithiasis Peptic Ulcer Cholelithiasis, diverticulitis, abby gastritis, non-specific abd pain, pancreatitis, Peptic Ulcer Disease. 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 Test interpretation: by ED physician or midlevel provider: ECG, plain radiologic studies. 03/23 00:43 Counseling: I had a detailed discussion with the patient and/or guardian regarding: the [facility] historical points, exam findings, and any diagnostic results supporting the discharge/admit diagnosis, the presence of at least one elevated blood pressure reading (>120/80) during this emergency department visit, lab results, radiology results. Medication response: Zofran markedly relieved the patient's nausea. ED course: pt ruq pain improved, awaitng ct abd/pel. 00:59 ED course: ct a/p nad. pt feelig better, will arrange fu and reter if worse. [facility] 03/22 21:57 Order name: Basic Metabolic Panel; Complete Time: 23:10 [facility] 03/22 21:57 Order name: CBC with Diff; Complete Time: 23:10 [facility] 03/22 21:57 Order name: Creatinine for Radiology; Complete Time: 23:10 [facility] 03/22 21:57 Order name: Hepatic Function; Complete Time: 23:10 [facility] 03/22 21:57 Order name: Lipase; Complete Time: 23:10 [facility] 03/22 22:18 Order name: Magnesium; Complete Time: 23:10 [facility] 03/22 22:18 Order name: Troponin (emerg Dept Use Only); Complete Time: 23:10 [facility] 03/22 22:18 Order name: XRAY Chest (1 view) [facility] 03/22 22:18 Order name: CT Abd/Pelvis - PO and IV Contrast [facility] 03/23 00:42 Order name: Troponin (emerg Dept Use Only): 1240am; Complete Time: 01:58 [facility] 03/22 21:57 Order name: IV Saline Lock; Complete Time: 22:16 [facility] 03/22 21:57 Order name: Labs collected and sent; Complete Time: 22:16 [facility] 03/22 22:17 Order name: EKG; Complete Time: 22:17 [facility] 03/22 22:17 Order name: EKG - Nurse/Tech; Complete Time: 22:22 [facility] 03/22 22:18 Order name: EKG; Complete Time: 22:19 [facility] 03/22 22:18 Order name: Cardiac monitoring; Complete Time: 22:22 [facility] 03/22 22:18 Order name: EKG - Nurse/Tech; Complete Time: 22:22 [facility] 03/22 22:18 Order name: O2 Per Protocol; Complete Time: 22:23 [facility] 03/22 22:18 Order name: O2 Sat Monitoring; Complete Time: :22 [facility] EC/02 22:36 Rate is 65 beats/min. Rhythm is regular. QRS [place] is Normal. [place] interval is normal. QRS abby interval is normal. QT interval is normal. No Q waves. T waves are Normal. No ST changes noted. Clinical impression: Normal ECG and No evidence of ischemia. Interpreted by me. Reviewed by me. Administered Medications: 22:37 Drug: Zofran (Ondansetron) 4 mg Route: IVP; Site: right antecubital; bb3 23:12 Follow up: BP 142 / 96; Pulse 73 bpm; Resp 18 bpm; Pulse Ox 100% ; Response: No adverse bb3 reaction; Nausea is decreased 22:38 Drug: morphine 2 mg Route: IVP; Site: right antecubital; bb3 23:13 Follow up: BP 142 / 96; Pulse 71 bpm; Resp 18 bpm; Pulse Ox 100% ; Pain 2/10 Adult; bb3 Response: No adverse reaction; Pain is decreased; Blood pressure is elevated; RASS: Alert and Calm (0) 22:39 Drug: NS 0.9% 500 ml Route: IV; Rate: bolus; Site: right antecubital; bb3 23:15 Follow up: IV Status: Completed infusion; IV Intake: 500ml bb3 23:10 Drug: NS 0.9% 1000 ml Route: IV; Rate: 125 ml/hr; Site: right antecubital; bb3 Disposition: 03/23/20 01:59 Discharged to Home. Impression: Abdominal tenderness, Functional dyspepsia. - Condition is Stable. - Discharge Instructions: Abdominal Pain, Adult, Abdominal Pain, Adult, [id number], Aspirin and Your Heart. - Prescriptions for Bentyl 20 mg Oral Tablet - take 1 tablet by ORAL route every 6 hours As needed; 20 tablet. Pepcid 20 mg Oral Tablet - take 1 tablet by ORAL route every 12 hours for 10 days; 20 tablet. Zofran 4 mg Oral Tablet - take 1 tablet by ORAL route every 12 hours As needed; 20 tablet. - Medication Reconciliation Form, Thank You Letter, Antibiotic Education, Prescription Opioid Use form. - Follow up: Private Physician; When: 2 - 3 days; Reason: Recheck today's complaints, Continuance of care, Re-evaluation by your physician. Follow up: Anthony Cerda; When: 2 - 3 days; Reason: Recheck today's complaints, Re-evaluation by your physician. Follow up: Stone Mcneal; When: 2 - 3 days; Reason: Recheck today's complaints, Continuance of care, Re-evaluation by your physician. - Problem is new. - Symptoms have improved. Signatures: Dispatcher [employer] EDMS Hai Mcfadden MD MD cha Acob, Cheryl RN RN ca1 Michelle Crum bb3 Corrections: (The following items were deleted from the chart) 03/23 03:06 01:59 03/23/2020 01:59 Discharged to Home. Impression: Abdominal tenderness; Functional bb3 dyspepsia. Condition is Stable. Discharge Instructions: Abdominal Pain, Adult, Abdominal Pain, Adult, [id number], Aspirin and Your Heart. Prescriptions for Bentyl 20 mg Oral Tablet - take 1 tablet by ORAL route every 6 hours As needed; 20 tablet, Pepcid 20 mg Oral Tablet - take 1 tablet by ORAL route every 12 hours for 10 days; 20 tablet, Zofran 4 mg Oral Tablet - take 1 tablet by ORAL route every 12 hours As needed; 20 tablet. and Forms are Medication Reconciliation Form, Thank You Letter, Antibiotic Education, Prescription Opioid Use. Follow up: Private Physician; When: 2 - 3 days; Reason: Recheck today's complaints, Continuance of care, Re-evaluation by your physician. Follow up: Anthony Cerda; When: 2 - 3 days; Reason: Recheck today's complaints, Re-evaluation by your physician. Follow up: Stone Mcneal; When: 2 - 3 days; Reason: Recheck today's complaints, Continuance of care, Re-evaluation by your physician. Problem is new. Symptoms have improved. abby
--- NOTE | 2020-03-23 01:59 | ER ---
Nurse's Notes [facility] Name: Steven Morillo Age: 49 yrs Sex: Male : 1970 Arrival Date: 03/22/2020 Time: 20:29 Bed 15 Private MD: Diagnosis: Abdominal tenderness;Functional dyspepsia Presentation: 03/22 20:32 Chief complaint: Patient states: RUQ pain radiating to the back x 2-3 days ago. Denies ca1 N/V/Diarrhea. Coronavirus screen: Proceed with normal triage. Patient denies a cough. Patient denies shortness of breath or difficulty breathing. Patient denies measured and/or subjective temperature greater than 100.4F prior to today's visit. Patient denies travel on a cruise ship or to a country the [facility] currently lists as an affected area. Patient denies contact with known and/or suspected case of COVID-19. Ebola Screen: Patient negative for fever greater than or equal to 101.5 degrees Fahrenheit, and additional compatible Ebola Virus Disease symptoms Patient denies exposure to infectious person. Patient denies travel to an Ebola-affected area in the 21 days before illness onset. No symptoms or risks identified at this time. Initial Sepsis Screen: Does the patient meet any 2 criteria? No. Patient's initial sepsis screen is negative. Does the patient have a suspected source of infection? No. Patient's initial sepsis screen is negative. Risk Assessment: Do you want to hurt yourself or someone else? Patient reports no desire to harm self or others. Onset of symptoms was March 22, 2020. 20:32 Method Of Arrival: Ambulatory ca1 20:32 Acuity: TIFFANIE 3 ca1 Historical: - Allergies: 20:34 No Known Allergies; ca1 - Home Meds: 20:34 Lipitor 80 mg oral tab 1 tab once daily [Active]; aspirin 81 mg Oral chew 1 tab once ca1 daily [Active]; metoprolol tartrate 25 mg Oral tab 1 tab once daily [Active]; - PMHx: 20:34 Hyperlipidemia; Hypertension; CAD; ca1 - PSHx: 20:34 Shoulder; Hernia repair; CABG; ca1 - Immunization history:: Adult Immunizations up to date, Flu vaccine is not up to date. - Social history:: Smoking status: Patient denies any tobacco usage or history of. - Family history:: not pertinent. Screenin:02 Abuse screen: Denies threats or abuse. Denies injuries from another. Nutritional ca1 screening: No deficits noted. Tuberculosis screening: No symptoms or risk factors identified. Fall Risk IV access (20 points). Assessment: 22:02 General: Appears in no apparent distress. comfortable, Behavior is calm, cooperative, ca1 appropriate for age. Pain: Complains of pain in right upper quadrant Pain radiates to right mid back Pain currently is 8 out of 10 on a pain scale. Pain began 2-3 days ago. Neuro: Level of Consciousness is awake, alert, obeys commands, Oriented to person, place, time, situation, Appropriate for age. Cardiovascular: Heart tones S1 S2 present Capillary refill < 3 seconds Patient's skin is warm and dry. Respiratory: Airway is patent Respiratory effort is even, unlabored, Respiratory pattern is regular, symmetrical, Breath sounds are clear bilaterally. GI: Abdomen is round non-distended, Bowel sounds present X 4 quads. Abd is soft and non tender X 4 quads. : No signs and/or symptoms were reported regarding the genitourinary system. EENT: No signs and/or symptoms were reported regarding the EENT system. Derm: Skin is intact, is healthy with good turgor, Skin is pink, warm \T\ dry. Musculoskeletal: Circulation, motion, and sensation intact. Capillary refill < 3 seconds. 22:39 Pain: Complains of pain in right upper quadrant Pain radiates to mid back area and bb3 right mid back Pain currently is 6 out of 10 on a pain scale. Quality of pain is described as crampy, radiating. 23:16 Reassessment: Patient is alert, oriented x 3, equal unlabored respirations, skin bb3 warm/dry/pink. Patient states symptoms have improved. Reassessment: BP 142/96, 71, 18, 100% on RA. General: Appears in no apparent distress. comfortable, Behavior is calm, cooperative, appropriate for age. Pain: Complains of pain in right upper quadrant Pain radiates to mid back area and right mid back. 05/03 00:36 Reassessment: Patient appears in no apparent distress at this time. No changes from bb3 previously documented assessment. Patient is alert, oriented x 3, equal unlabored respirations, skin warm/dry/pink. Reassessment: BP 127//90, 81, 18, 99% on RA; pt transported to and from CT via wheelchair-no problems encountered. Pain: Complains of pain in right mid back and right upper quadrant Pain currently is 2 out of 10 on a pain scale. 01:31 Reassessment: Patient appears in no apparent distress at this time. No changes from bb3 previously documented assessment. Patient and/or family updated on plan of care and expected duration. Pain level reassessed. General: Appears comfortable, Behavior is calm, cooperative, appropriate for age. Pain: Complains of pain in right mid back and right upper quadrant Pain currently is 3 out of 10 on a pain scale. Aggravated by increased activity. 02:10 Reassessment: Patient appears in no apparent distress at this time. No changes from bb3 previously documented assessment. Patient and/or family updated on plan of care and expected duration. Pain level reassessed. Patient is alert, oriented x 3, equal unlabored respirations, skin warm/dry/pink. General: Appears comfortable. Vital Signs: 03/22 20:32 BP 128 / 82; Pulse 80; Resp 17 S; Temp 98.7(O); Pulse Ox 97% on R/A; Weight 96.16 kg ca1 (R); Height 5 ft. 11 in. (180.34 cm) (R); Pain 7/10; 22:15 BP 127 / 83; Pulse 71; Resp 16 S; Pulse Ox 98% on R/A; ca1 23:06 BP 142 / 96; Pulse 67; Resp 20 S; Pulse Ox 98% on R/A; ca1 23:12 BP 142 / 96; Pulse 73; Resp 18; Pulse Ox 100% ; bb3 23:13 BP 142 / 96; Pulse 71; Resp 18; Pulse Ox 100% ; Pain 2/10; bb3 03/23 00:41 BP 127 / 90; Pulse 81; Resp 18; Pulse Ox 99% ; Pain 2/10; bb3 01:30 BP 116 / 80; Pulse 86; Resp 18; Temp 98; Pulse Ox 100% on R/A; mg2 01:31 BP 116 / 80; Pulse 68; Resp 18; Pulse Ox 98% ; Pain 3/10; bb3 02:10 BP 122 / 81; Pulse 67; Resp 18; Pulse Ox 100% ; Pain 3/10; bb3 03/22 20:32 Body Mass Index 29.57 (96.16 kg, 180.34 cm) ca1 ED Course: 03/22 20:29 Patient arrived in ED. fj1 20:33 Triage completed. ca1 20:34 Arm band placed on right wrist. ca1 21:53 Pilar Bledsoe RN is Primary Nurse. ca1 21:54 Hai Mcfadden MD is Attending Physician. abby 22:02 Patient has correct armband on for positive identification. Bed in low position. Call ca1 light in reach. Side rails up X 1. Pulse ox on. NIBP on. Warm blanket given. 22:12 No provider procedures requiring assistance completed. Inserted saline lock: 20 gauge mg2 in right antecubital area, using aseptic technique. Blood collected. 22:53 XRAY Chest (1 view) In Process Unspecified. EDMS 23:11 Report given to CHIRAG Restrepo. ca1 03/23 00:45 CT Abd/Pelvis - PO and IV Contrast In Process Unspecified. EDMS 01:59 Anthony Cerda MD is Referral Physician. abby 01:59 Stone Mcneal MD is Referral Physician. abby 02:10 No provider procedures requiring assistance completed. IV discontinued, bleeding bb3 controlled, Pressure dressing applied. Administered Medications: 03/22 22:37 Drug: Zofran (Ondansetron) 4 mg Route: IVP; Site: right antecubital; bb3 23:12 Follow up: BP 142 / 96; Pulse 73 bpm; Resp 18 bpm; Pulse Ox 100% ; Response: No adverse bb3 reaction; Nausea is decreased 22:38 Drug: morphine 2 mg Route: IVP; Site: right antecubital; bb3 23:13 Follow up: BP 142 / 96; Pulse 71 bpm; Resp 18 bpm; Pulse Ox 100% ; Pain 2/10 Adult; bb3 Response: No adverse reaction; Pain is decreased; Blood pressure is elevated; RASS: Alert and Calm (0) 22:39 Drug: NS 0.9% 500 ml Route: IV; Rate: bolus; Site: right antecubital; bb3 23:15 Follow up: IV Status: Completed infusion; IV Intake: 500ml bb3 23:10 Drug: NS 0.9% 1000 ml Route: IV; Rate: 125 ml/hr; Site: right antecubital; bb3 Intake: 23:15 IV: 500ml; Total: 500ml. bb3 Outcome: 03/23 01:59 Discharge ordered by . abby 02:10 Discharged to home ambulatory. bb3 02:10 Condition: improved 02:10 Discharge instructions given to patient, Instructed on discharge instructions, follow up and referral plans. no drinking with medication, no driving heavy equipment, medication usage, benefits of quitting smoking. 03:06 Patient left the ED. bb3 Signatures: Dispatcher [employer] EDMS Hai Mcfadden MD MD cha Gardose, Michele, RN RN mg2 Pilar Bledsoe RN RN ca1 Michelle Crum bb3 Flaco Hines1
[2020-03-23 03:57] VITALS: TEMP 98
[2020-03-23 04:00] VITALS: BP 122/81; O2SAT 100
--- NOTE | 2020-03-23 11:49 | RAD REPORT ---
EXAM DESCRIPTION: RAD - Chest Single View - 03/22/2020 10:52 pm CLINICAL HISTORY: Chest pain;Abdominal distention Chest pain. COMPARISON: Chest Single View dated 07/19/2018; CHEST PA AND LAT 2 VIEW dated 05/18/2013; CHEST SINGLE VIEW dated 05/29/2009 FINDINGS: Portable technique limits examination quality. The lungs are grossly clear. The heart is normal in size. Sternotomy wires. IMPRESSION: No acute intrathoracic process suspected.
--- NOTE | 2020-03-23 12:53 | RAD REPORT ---
EXAM DESCRIPTION: Abdomen Pelvis W Contrast CLINICAL HISTORY: ABD PAIN COMPARISON: None. TECHNIQUE: CT ABDOMEN PELVIS WITH IV CONTRAST on 03/22/2020 10:18 PM CDT This exam was performed according to our departmental dose-optimization program, which includes autom ated exposure control, adjustment of the mA and/or kV according to patient size and/or use of iterati ve reconstruction technique. FINDINGS: Lower lungs are clear. Abdomen: The liver is normal in appearance. There is no biliary dilatation. Gallbladder is normal in appearance. The pancreas and spleen are normal in appearance. The adrenal glands and kidneys are unre markable. Abdominal aorta is normal in course and caliber without aneurysm. There is no free air. There is no r etroperitoneal adenopathy. Pelvis: There is no bowel obstruction. Urinary bladder is unremarkable. There is no free fluid. Appen nicole is normal. There are postoperative changes of the right region. Skeleton: There are no acute osseous findings. No suspicious bony lesions. IMPRESSION: No definite acute process. Electronically signed by: Eddie Gibbons MD 03/23/2020 12:51 AM CDT Due to temporary technical issues with the PACS/Fluency reporting system, reports are being signed by the in house radiologist as a courtesy to ensure prompt reporting. The interpreting radiologist is f ully responsible for the content of the report.
--- NOTE | 2020-03-24 10:53 | EKG ---
Test Date: 2020-03-22 Test Time: 22:27:16 Bread Stacker: MICHELLE MEASUREMENT RESULTS: Intervals: Rate: 65 OK: 160 QRSD: 86 QT: 392 QTc: 407 [place]: P: 57 OK: 160 QRS: 50 T: 34 INTERPRETIVE STATEMENTS: Normal sinus rhythm Low voltage QRS Borderline ECG Compared to ECG 07/20/2018 09:15:59 Low QRS voltage now present Electronically Signed On 03-24-20 10:49:25 CDT by Anthony Cerda
== END 2020-03-23 03:06 | disposition home or self-care (01) ==
LOC: ER 20:11
DX: K30 Functional dyspepsia (principal); I10 Essential (primary) hypertension; E78.5 Hyperlipidemia, unspecified; Z95.1 Presence of aortocoronary bypass graft; Z79.82 Long term (current) use of aspirin
CPT/HCPCS: 93005; 85025; 80048; 36415; 83735; 80076; 84484 ×2; 83690; 74177; 71045; Q9967; J2270; J7040; J7030; J2405; 96361; 96374; 96375; 99284

== ENCOUNTER 2020-11-10 07:39 | Emergency (ER) | payer BC ==
--- OUTSIDE RECORDS SUMMARY | 2020-11-10 07:54 | XMS REPORT | Clinical Summary ---
:1970 Author Organization [facility] Address [address] [place] [address] Care Team Providers Name Role Phone Unavailable Primary Care Provider Unavailable Allergies No Known Allergies Medications Medication Sig Dispensed Refills Start Date End Date Status aspirin 81 MG EC tablet Take 81 mg by 0 Active mouth daily. atorvastatin (LIPITOR) Take 80 mg by 0 Active 80 MG tablet mouth nightly. 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 07/21/2018 Essential hypertension 07/21/2018 Hyperlipidemia 07/21/2018 CAD (coronary artery disease) 07/21/2018 Coronary artery disease 07/21/2018 Acute respiratory insufficiency Hypotension, unspecified hypotension type Postoperative anemia due to acute blood loss Hyperglycemia Family History Medical History Relation Name Comments Heart disease Father Relation Name Status Comments Father Social History Tobacco Use Types Packs/Day Years Used Date Never Smoker Smokeless Tobacco: Current User Chew Alcohol Use Drinks/Week oz/Week Comments Yes 10 Cans of beer 10.0 Sex Assigned at Date Recorded Not on file Last Filed Vital Signs Not on file Plan of Treatment Health Maintenance Due Date Last Done Comments PNEUMOCOCCAL VACCINE 0-64 YRS (1 of 1 - PPSV23) 1976 INFLUENZA VACCINE (#1) 2020 LIPID PANEL 07/20/2021 07/20/2018 Results Not on fileafter 11/10/2019 Insurance Payer Benefit Plan Subscriber ID Effective Dates Phone Address Type / Group BLUE [employer]BS OS [id number] 2013-Prese [phone] [address] PPO CROSS/BLUE POS/PPO/EPO nt 2 [facility] [id number] Advance Directives For more information, please contact: [phone] Code Status Date Activated Date Inactivated Comments Full Code 07/20/2018 8:25 PM 07/26/2018 7:53 PM This code status was determined by: Patient
--- OUTSIDE RECORDS SUMMARY | 2020-11-10 07:56 | XMS REPORT | Continuity of Care Document ---
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 Essential Essential Disease Active [facility] hypert[facility]i hypertensi 07-21 kes - on on 00:00: Medical [address] [place] [address] Hyperlipid Hyperlipid Disease Active [facility] emia 07-21 [facility] - [facility] Medical [address] [place] [address] Coronary Coronary Disease [facility] artery [facility] - disease disease 00:00: Medical [address] [place] [address] Acute Acute Disease Active [facility] respirator respirator Amelia kes - y y Medical insufficie insufficie Ce nter ncy ncy Hypotensio Hypotensio Disease Active [facility] n, n, [facility] - unspecifie unspecifie Me dical d d [facility] hypotensio hypotensio n type n type Postoperat Postoperat Disease Active [facility] sen anemia sen anemia Amelia kes - due to due to Medical acute acute Center blood loss blood loss Hyperglyce Hyperglyce Disease Active [facility] Allergies, Adverse Reactions, Alerts This patient has no known allergies or adverse reactions. Family History Family Member Diagnosis Comments Start Date Stop Date Source Natural father Heart disease [facility] Social History Social Habit Start Date Stop Date Quantity Comments Source History of Chews Tobacco [facility] St ke s - [facility] use [facility] Assigned At [facility] Tobacco use and 2018-08-08 2018-08-[address] [facility] - exposure 00:00:00 00:00:00 [facility] Alcohol intake 2018-08-08 2018-08-08 [facility] - [facility] 00:00:00 of alcohol [facility] (finding) Smoking Status Start Date Stop Date Source Never smoker [facility] Medications Ordered Filled Start Stop Current Ordering Indication Dosage Frequency Signature Comments Components Source Medication Medication Date Date Medication? Clinician (SIG) Name Name aspirin 81 Yes 81mg QD Take [address] MG EC 9-18 by mouth [facility] - tablet 09:09: daily. [address] atorvastati Yes 80mg QD Take [address] [facility] (LIPITOR) 9-18 by mouth Luke s - 80 MG 09:09: nightly. [address] Procedures This patient has no known procedures. Plan of Care Planned Activity Planned Date Details Comments Source Future Scheduled 2021-07-[address] [facility] - Test 00:00:00 (procedure) [code = [facility] [id number]] Future Scheduled 2020-07-22 INFLUENZA VACCINE (#1) [facility] - Test 00:00:00 [code = INFLUENZA Medical Ce nter VACCINE (#1)] Future Scheduled [address] [facility] - Test 00:00:00 0-64 YRS (1 of 1 - Medical C enter PPSV23) [code = PNEUMOCOCCAL VACCINE 0-64 YRS (1 of 1 - PPSV23)] Encounters Start End Encounter Admission Attending Care Care Encounter Source Date/Time Date/Time Type Type Clinicians Facility Department ID 2020-10-31 2020-10-31 Emergency E [facility]BL [id number] 18:11:00 18:11:00 Results Test Description Test Time Test Comments Results Result Comments Source BASIC METABOLIC PANEL 2018-07-26 07:32:00 Test Item Value Reference Range Interpretation Comme nts SODIUM (BEAKER) (test code 135 meq/L 136-145 L = 381) POTASSIUM (BEAKER) (test 3.2 meq/L 3.5-5.1 L code = 379) CHLORIDE (BEAKER) (test 96 meq/L 98-107 L code = 382) CO2 (BEAKER) (test code = 30 meq/L 22-29 H 355) BLOOD UREA NITROGEN 16 mg/dL 7-21 (BEAKER) (test code = 354) CREATININE (BEAKER) (test 0.83 mg/dL 0.57-1.25 code = 358) GLUCOSE RANDOM (BEAKER) 97 mg/dL 70-105 (test code = 652) CALCIUM (BEAKER) (test code 8.9 mg/dL 8.4-10.2 = 697) EGFR (BEAKER) (test code = 99 mL/min/1.73 sq m ESTIMATED GFR IS NOT 1092) ACCURATE CRE ATININE CLEARANCE IN SD EDICTING GLOMERULAR FILT RATION RATE. ESTIMATED GFR IS NOT APPLICABLE FOR DIALYSIS PATIENTS. CBC W/PLT COUNT & AUTO [id number] 07:01:00 Test Item Value Reference Range Interpretation Comments WHITE BLOOD CELL COUNT (BEAKER) 7.1 K/ L 3.5-10.5 (test code = 775) RED BLOOD CELL COUNT (BEAKER) 3.75 M/ L 4.63-6.08 L (test code = 761) HEMOGLOBIN (BEAKER) (test code = 11.1 GM/DL 13.7-17.5 L 410) HEMATOCRIT (BEAKER) (test code = 33.0 % 40.1-51.0 L 411) MEAN CORPUSCULAR VOLUME (BEAKER) 88.0 fL 79.0-92.2 (test code = 753) MEAN CORPUSCULAR HEMOGLOBIN 29.6 pg 25.7-32.2 (BEAKER) (test code = 751) MEAN CORPUSCULAR HEMOGLOBIN CONC 33.6 GM/DL 32.3-36.5 (BEAKER) (test code = 752) RED CELL DISTRIBUTION WIDTH 11.9 % 11.6-14.4 (BEAKER) (test code = 412) PLATELET COUNT (BEAKER) (test 183 K/CU MM 150-450 code = 756) MEAN PLATELET VOLUME (BEAKER) 11.2 fL 9.4-12.4 (test code = 754) NUCLEATED RED BLOOD CELLS 0 /100 WBC 0-0 (BEAKER) (test code = 413) NEUTROPHILS RELATIVE PERCENT 61 % (BEAKER) (test code = 429) LYMPHOCYTES RELATIVE PERCENT 24 % (BEAKER) (test code = 430) MONOCYTES RELATIVE PERCENT 10 % (BEAKER) (test code = 431) EOSINOPHILS RELATIVE PERCENT 4 % (BEAKER) (test code = 432) BASOPHILS RELATIVE PERCENT 0 % (BEAKER) (test code = 437) NEUTROPHILS ABSOLUTE COUNT 4.35 K/ L 1.78-5.38 (BEAKER) (test code = 670) LYMPHOCYTES ABSOLUTE COUNT 1.72 K/ L 1.32-3.57 (BEAKER) (test code = 414) MONOCYTES ABSOLUTE COUNT (BEAKER) 0.69 K/ L 0.30-0.82 (test code = 415) EOSINOPHILS ABSOLUTE COUNT 0.26 K/ L 0.04-0.54 (BEAKER) (test code = 416) BASOPHILS ABSOLUTE COUNT (BEAKER) 0.03 K/ L 0.01-0.08 (test code = 417) IMMATURE GRANULOCYTES-RELATIVE 1 % 0-1 PERCENT (BEAKER) (test code = 2801) POCT-GLUCOSE [id number] 09:19:00 Test Item Value Reference Range Interpretation Comments POC-GLUCOSE METER 122 mg/dL 70-110 H TESTED AT [facility] 6720 (BEAKER) (test code = [place] 1538) [id number] CALCIUM, [id number] 07:21:00 Test Item Value Reference Range Interpretation Comments CALCIUM IONIZED (BEAKER) (test 0.95 mmol/L 1.12-1.27 L code = 698) PH, BLOOD (BEAKER) (test code = 7.40 1810) Check serum Ionized Calcium level after 4 hours after IV Calcium replacement. [id number] 06:37:00 Test Item Value Reference Range Interpretation Comments MAGNESIUM (BEAKER) (test code = 2.2 mg/dL 1.6-2.6 627) Check Serum Magnesium level 2 hours after IV magnesium replacement.BASIC METABOLIC [id number] 06:37:00 Test Item Value Reference Range Interpretation Comments SODIUM (BEAKER) 136 meq/L 136-145 (test code = 381) POTASSIUM (BEAKER) 3.7 meq/L 3.5-5.1 (test code = 379) CHLORIDE (BEAKER) 96 meq/L 98-107 L (test code = 382) CO2 (BEAKER) (test 33 meq/L 22-29 H code = 355) BLOOD UREA NITROGEN 16 mg/dL 7-21 (BEAKER) (test code = 354) CREATININE (BEAKER) 0.77 mg/dL 0.57-1.25 (test code = 358) GLUCOSE RANDOM 99 mg/dL 70-105 (BEAKER) (test code = 652) CALCIUM (BEAKER) 8.5 mg/dL 8.4-10.2 (test code = 697) EGFR (BEAKER) (test 108 mL/min/1.73 ESTIM ATED GFR IS code = 1092) sq m NOT ACCURATE CREATININE CLEARANCE IN PREDICTING GLOMERULAR FILTRATION RATE . ESTIMATED GFR I S NOT APPLICABLE FOR DIALYSIS PATIEN TS. Check Serum Magnesium level 2 hours after IV magnesium replacement.CBC W/PLT COUNT & AUTO [id number] 06:18:00 Test Item Value Reference Range Interpretation Comments WHITE BLOOD CELL COUNT (BEAKER) 7.8 K/ L 3.5-10.5 (test code = 775) RED BLOOD CELL COUNT (BEAKER) 3.34 M/ L 4.63-6.08 L (test code = 761) HEMOGLOBIN (BEAKER) (test code = 9.9 GM/DL 13.7-17.5 L 410) HEMATOCRIT (BEAKER) (test code = 29.6 % 40.1-51.0 L 411) MEAN CORPUSCULAR VOLUME (BEAKER) 88.6 fL 79.0-92.2 (test code = 753) MEAN CORPUSCULAR HEMOGLOBIN 29.6 pg 25.7-32.2 (BEAKER) (test code = 751) MEAN CORPUSCULAR HEMOGLOBIN CONC 33.4 GM/DL 32.3-36.5 (BEAKER) (test code = 752) RED CELL DISTRIBUTION WIDTH 11.9 % 11.6-14.4 (BEAKER) (test code = 412) PLATELET COUNT (BEAKER) (test 140 K/CU MM 150-450 L code = 756) MEAN PLATELET VOLUME (BEAKER) 12.6 fL 9.4-12.4 H (test code = 754) NUCLEATED RED BLOOD CELLS 0 /100 WBC 0-0 (BEAKER) (test code = 413) NEUTROPHILS RELATIVE PERCENT 70 % (BEAKER) (test code = 429) LYMPHOCYTES RELATIVE PERCENT 18 % (BEAKER) (test code = 430) MONOCYTES RELATIVE PERCENT 9 % (BEAKER) (test code = 431) EOSINOPHILS RELATIVE PERCENT 3 % (BEAKER) (test code = 432) BASOPHILS RELATIVE PERCENT 0 % (BEAKER) (test code = 437) NEUTROPHILS ABSOLUTE COUNT 5.46 K/ L 1.78-5.38 H (BEAKER) (test code = 670) LYMPHOCYTES ABSOLUTE COUNT 1.39 K/ L 1.32-3.57 (BEAKER) (test code = 414) MONOCYTES ABSOLUTE COUNT (BEAKER) 0.71 K/ L 0.30-0.82 (test code = 415) EOSINOPHILS ABSOLUTE COUNT 0.21 K/ L 0.04-0.54 (BEAKER) (test code = 416) BASOPHILS ABSOLUTE COUNT (BEAKER) 0.02 K/ L 0.01-0.08 (test code = 417) IMMATURE GRANULOCYTES-RELATIVE 0 % 0-1 PERCENT (BEAKER) (test code = 2801) RAD, CHEST, 1 VIEW, NON [id number] 04:00:00Reason for exam:->CTShould this be performed at the bedside?->YesFINAL REPORT CLINICAL INDICATION: Chest tube Comparison: 07/24/2018 The cardiomediastinal contours are stable. The lung volumes remain low. Bilateral parenchymal opacities are unchanged. There is no pneumothorax after left chest tube removal. A mediastinal drain is stable. Signed: Kiara Nunez MDReport Verified Date/Time: 07/25/2018 04:00:33 Reading Location: [address] Reading Room [id number] 06:19:00 Test Item Value Reference Range Interpretation Comments MAGNESIUM (BEAKER) (test code = 2.1 mg/dL 1.6-2.6 627) Check Serum Magnesium level 2 hours after IV magnesium replacement.BASIC METABOLIC [id number] 06:19:00 Test Item Value Reference Range Interpretation Comments SODIUM (BEAKER) 134 meq/L 136-145 L (test code = 381) POTASSIUM (BEAKER) 3.9 meq/L 3.5-5.1 (test code = 379) CHLORIDE (BEAKER) 95 meq/L 98-107 L (test code = 382) CO2 (BEAKER) (test 30 meq/L 22-29 H code = 355) BLOOD UREA NITROGEN 21 mg/dL 7-21 (BEAKER) (test code = 354) CREATININE (BEAKER) 0.85 mg/dL 0.57-1.25 (test code = 358) GLUCOSE RANDOM 106 mg/dL 70-105 H (BEAKER) (test code = 652) CALCIUM (BEAKER) 8.2 mg/dL 8.4-10.2 L (test code = 697) EGFR (BEAKER) (test 97 mL/min/1.73 ESTIMA BOAZ GFR IS code = 1092) sq m NOT ACCURATE CREATININE CLEARANCE IN PREDICTING GLOMERULAR FILTRATION RATE . ESTIMATED GFR I S NOT APPLICABLE FOR DIALYSIS PATIEN TS. Check Serum Magnesium level 2 hours after IV magnesium replacement.CALCIUM, [id number] 06:17:00 Test Item Value Reference Range Interpretation Comments CALCIUM IONIZED (BEAKER) (test 0.93 mmol/L 1.12-1.27 L code = 698) PH, BLOOD (BEAKER) (test code = 7.43 1810) Check serum Ionized Calcium level after 4 hours after IV Calcium replacement.CBC W/PLT COUNT & AUTO [id number] 06:03:00 Test Item Value Reference Range Interpretation Comments WHITE BLOOD CELL COUNT (BEAKER) 8.8 K/ L 3.5-10.5 (test code = 775) RED BLOOD CELL COUNT (BEAKER) 3.61 M/ L 4.63-6.08 L (test code = 761) HEMOGLOBIN (BEAKER) (test code = 10.8 GM/DL 13.7-17.5 L 410) HEMATOCRIT (BEAKER) (test code = 32.0 % 40.1-51.0 L 411) MEAN CORPUSCULAR VOLUME (BEAKER) 88.6 fL 79.0-92.2 (test code = 753) MEAN CORPUSCULAR HEMOGLOBIN 29.9 pg 25.7-32.2 (BEAKER) (test code = 751) MEAN CORPUSCULAR HEMOGLOBIN CONC 33.8 GM/DL 32.3-36.5 (BEAKER) (test code = 752) RED CELL DISTRIBUTION WIDTH 12.2 % 11.6-14.4 (BEAKER) (test code = 412) PLATELET COUNT (BEAKER) (test 120 K/CU MM 150-450 L code = 756) MEAN PLATELET VOLUME (BEAKER) 11.7 fL 9.4-12.4 (test code = 754) NUCLEATED RED BLOOD CELLS 0 /100 WBC 0-0 (BEAKER) (test code = 413) NEUTROPHILS RELATIVE PERCENT 71 % (BEAKER) (test code = 429) LYMPHOCYTES RELATIVE PERCENT 18 % (BEAKER) (test code = 430) MONOCYTES RELATIVE PERCENT 8 % (BEAKER) (test code = 431) EOSINOPHILS RELATIVE PERCENT 2 % (BEAKER) (test code = 432) BASOPHILS RELATIVE PERCENT 1 % (BEAKER) (test code = 437) NEUTROPHILS ABSOLUTE COUNT 6.24 K/ L 1.78-5.38 H (BEAKER) (test code = 670) LYMPHOCYTES ABSOLUTE COUNT 1.61 K/ L 1.32-3.57 (BEAKER) (test code = 414) MONOCYTES ABSOLUTE COUNT (BEAKER) 0.67 K/ L 0.30-0.82 (test code = 415) EOSINOPHILS ABSOLUTE COUNT 0.17 K/ L 0.04-0.54 (BEAKER) (test code = 416) BASOPHILS ABSOLUTE COUNT (BEAKER) 0.04 K/ L 0.01-0.08 (test code = 417) IMMATURE GRANULOCYTES-RELATIVE 1 % 0-1 PERCENT (BEAKER) (test code = 2801) RAD, CHEST, 1 VIEW, NON [id number] 04:17:00Reason for exam:->CTShould this be performed at [...] surgical changes.Additional findings: None. Signed: Omkar Grant MDReport Verified Date/Time: 07/24/2018 04:17:52 Reading Location: [address] Transitional Reading Room POCT-GLUCOSE METER 2018-07-23 10:40:00 Test Item Value Reference Range Interpretation Comments POC-GLUCOSE METER 159 mg/dL 70-110 H TESTED AT [facility] 6720 (BEAKER) (test code = [facility] 1538) [address] POCT-GLUCOSE [id number] 06:00:00 Test Item Value Reference Range Interpretation Comments POC-GLUCOSE METER 111 mg/dL 70-110 H TESTED AT [place] [address] [facility] (test code = [facility] 1538) [address] POCT-GLUCOSE [id number] 06:00:00 Test Item Value Reference Range Interpretation Comments POC-GLUCOSE METER 105 mg/dL 70-110 TESTED AT [place] [address] [facility] (test code = [facility] 1538) [address] [id number] 04:46:00 Test Item Value Reference Range Interpretation Comments PHOSPHORUS (BEAKER) (test code = 2.5 mg/dL 2.3-4.7 604) [id number] 04:46:00 Test Item Value Reference Range Interpretation Comments MAGNESIUM (BEAKER) (test code = 2.0 mg/dL 1.6-2.6 627) BASIC METABOLIC [id number] 04:46:00 Test Item Value Reference Range Interpretation Comments SODIUM (BEAKER) 134 meq/L 136-145 L (test code = 381) POTASSIUM (BEAKER) 4.2 meq/L 3.5-5.1 (test code = 379) CHLORIDE (BEAKER) 102 meq/L 98-107 (test code = 382) CO2 (BEAKER) (test 23 meq/L 22-29 code = 355) BLOOD UREA NITROGEN 17 mg/dL 7-21 (BEAKER) (test code = 354) CREATININE (BEAKER) 0.88 mg/dL 0.57-1.25 (test code = 358) GLUCOSE RANDOM 97 mg/dL 70-105 (BEAKER) (test code = 652) CALCIUM (BEAKER) 8.2 mg/dL 8.4-10.2 L (test code = 697) EGFR (BEAKER) (test 93 mL/min/1.73 ESTIMA BOAZ GFR IS code = 1092) sq m NOT ACCURATE CREATININE CLEARANCE IN PREDICTING GLOMERULAR FILTRATION RATE . ESTIMATED GFR I S NOT APPLICABLE FOR DIALYSIS PATIEN TS. RAD, CHEST, 1 VIEW, NON [id number] 04:43:00Reason for exam:->CTShould this be performed at the bedside?->YesFINAL REPORT CLINICAL INDICATION: Support lines. Comparison: 07/22/2018 The cardiomediastinal contours are stable. The lung volumes remain low. Central pulmonary vascular congestion and bilateral parenchymal opacities are unchanged. There is no pneumothorax. Support lines are stable. Signed: Kiara Nunez MDReport Verified Date/Time: 07/23/2018 04:43:55 Reading Location: [address] Reading Room LACTIC ACID, ARTERIAL, WHOLE [id number] 04:01:00 Test Item Value Reference Range Interpretation Comments LACTATE BLOOD ARTERIAL (2) 0.9 mmol/L 0.5-2.2 (BEAKER) (test code = 2874) Effective 03/24/2016: Units/Reference Range ChangeNew: 0.5-2.2 mmol/L Previous: 5-20 mg/dLFor occult hypoperfusionCBC (HEMOGRAM ONLY)2018-07-23 03:52:00 Test Item Value Reference Range Interpretation Comments WHITE BLOOD CELL COUNT (BEAKER) 7.8 K/ L 3.5-10.5 (test code = 775) RED BLOOD CELL COUNT (BEAKER) 3.81 M/ L 4.63-6.08 L (test code = 761) HEMOGLOBIN (BEAKER) (test code = 11.4 GM/DL 13.7-17.5 L 410) HEMATOCRIT (BEAKER) (test code = 33.7 % 40.1-51.0 L 411) MEAN CORPUSCULAR VOLUME (BEAKER) 88.5 fL 79.0-92.2 (test code = 753) MEAN CORPUSCULAR HEMOGLOBIN 29.9 pg 25.7-32.2 (BEAKER) (test code = 751) MEAN CORPUSCULAR HEMOGLOBIN CONC 33.8 GM/DL 32.3-36.5 ([facility]) (test code = 752) RED CELL DISTRIBUTION WIDTH 12.2 % 11.6-14.4 ([facility]) (test code = 412) PLATELET COUNT ([facility]) (test 100 K/CU MM 150-450 L code = 756) MEAN PLATELET VOLUME ([facility]) 11.7 fL 9.4-12.4 (test code = 754) NUCLEATED RED BLOOD CELLS 0 /100 WBC 0-0 ([facility]) (test code = 413) OXYGEN SATURATION, [id number] 03:50:00 Test Item Value Reference Range Interpretation Comments O2 SATURATION (MEASURED) ([facility]) 57.2 % (test code = 1455) For occult hypoperfusionPOCT-GLUCOSE [id number] 17:59:00 Test Item Value Reference Range Interpretation Comments POC-GLUCOSE METER 100 mg/dL 70-110 TESTED AT [place] [address] ([facility]) (test code = [facility] 1538) [id number] HEMOGLOBIN [id number] 12:00:00 Test Item Value Reference Range Interpretation Comments HEMOGLOBIN A1C ([facility]) (test code = 5.8 % 4.3-6.1 368) POCT-GLUCOSE [id number] 10:51:00 Test Item Value Reference Range Interpretation Comments POC-GLUCOSE METER 107 mg/dL 70-110 TESTED AT [place] [address] ([facility]) (test code = [facility] Gallego [facility] 1538) [address] POCT-GLUCOSE [id number] 08:35:00 Test Item Value Reference Range Interpretation Comments POC-GLUCOSE METER 124 mg/dL 70-110 H TESTED AT [place] [address] ([facility]) (test code = [place] 1538) [id number] POCT-GLUCOSE [id number] 06:33:00 Test Item Value Reference Range Interpretation Comments POC-GLUCOSE METER 116 mg/dL 70-110 H TESTED AT [place] [address] ([facility]) (test code = [facility] [place] 1538) [address] [id number] 06:26:00 Test Item Value Reference Range Interpretation Comments PHOSPHORUS ([facility]) (test code = 3.2 mg/dL 2.3-4.7 604) [id number] 06:26:00 Test Item Value Reference Range Interpretation Comments MAGNESIUM (BEAKER) (test code = 2.1 mg/dL 1.6-2.6 627) BASIC METABOLIC [id number] 06:26:00 Test Item Value Reference Range Interpretation Comments SODIUM (BEAKER) 137 meq/L 136-145 (test code = 381) POTASSIUM (BEAKER) 4.4 meq/L 3.5-5.1 (test code = 379) CHLORIDE (BEAKER) 109 meq/L 98-107 H (test code = 382) CO2 (BEAKER) (test 22 meq/L 22-29 code = 355) BLOOD UREA NITROGEN 16 mg/dL 7-21 (BEAKER) (test code = 354) CREATININE (BEAKER) 1.00 mg/dL 0.57-1.25 (test code = 358) GLUCOSE RANDOM 118 mg/dL 70-105 H (BEAKER) (test code = 652) CALCIUM (BEAKER) 8.4 mg/dL 8.4-10.2 (test code = 697) EGFR (BEAKER) (test 80 mL/min/1.73 ESTIMA BOAZ GFR IS code = 1092) sq m NOT ACCURATE CREATININE CLEARANCE IN PREDICTING GLOMERULAR FILTRATION RATE . ESTIMATED GFR I S NOT APPLICABLE FOR DIALYSIS PATIEN TS. CBC (HEMOGRAM ONLY)2018-07-22 05:54:00 Test Item Value Reference Range Interpretation Comments WHITE BLOOD CELL COUNT (BEAKER) 8.7 K/ L 3.5-10.5 (test code = 775) RED BLOOD CELL COUNT (BEAKER) 3.94 M/ L 4.63-6.08 L (test code = 761) HEMOGLOBIN (BEAKER) (test code = 11.8 GM/DL 13.7-17.5 L 410) HEMATOCRIT (BEAKER) (test code = 34.8 % 40.1-51.0 L 411) MEAN CORPUSCULAR VOLUME (BEAKER) 88.3 fL 79.0-92.2 (test code = 753) MEAN CORPUSCULAR HEMOGLOBIN 29.9 pg 25.7-32.2 (BEAKER) (test code = 751) MEAN CORPUSCULAR HEMOGLOBIN CONC 33.9 GM/DL 32.3-36.5 (BEAKER) (test code = 752) RED CELL DISTRIBUTION WIDTH 12.1 % 11.6-14.4 (BEAKER) (test code = 412) PLATELET COUNT (BEAKER) (test 121 K/CU MM 150-450 L code = 756) MEAN PLATELET VOLUME (BEAKER) 11.6 fL 9.4-12.4 (test code = 754) NUCLEATED RED BLOOD CELLS 0 /100 WBC 0-0 (BEAKER) (test code = 413) LACTIC ACID, ARTERIAL, WHOLE [id number] 05:39:00 Test Item Value Reference Range Interpretation Comments LACTATE BLOOD ARTERIAL (2) 1.3 mmol/L 0.5-2.2 (AKER) (test code = 2874) Effective 03/24/2016: Units/Reference Range ChangeNew: 0.5-2.2 mmol/L Previous: 5-20 mg/dLOXYGEN SATURATION, [id number] 05:26:00 Test Item Value Reference Range Interpretation Comments O2 SATURATION (MEASURED) (AKER) 56.3 % (test code = 1455) POCT-GLUCOSE [id number] 04:59:00 Test Item Value Reference Range Interpretation Comments POC-GLUCOSE METER 124 mg/dL 70-110 H TESTED AT [facility] 6720 ([facility]) (test code = [place] 1538) [address] RAD, CHEST, 1 VIEW, NON [id number] 03:31:00while patient is intubated or has chest tubes.Reason for exam:->s/p ACBShould this be performed at the bedside?->YesFINAL REPORT CLINICAL INDICATION: Postop Comparison: 07/21/2018 The cardiomediastinal contours are stable. The lung volumes are low but stable after extubation. Bilateral parenchymal opacities are unchanged. There is no pneumothorax. Remaining support lines are stable. Signed: Kiara Nunez Verified Date/Time: 07/22/2018 03:31:59 Reading Location: [address] Reading Room POCT-GLUCOSE [id number] 02:29:00 Test Item Value Reference Range Interpretation Comments POC-GLUCOSE METER 118 mg/dL 70-110 H TESTED AT [facility] 6720 (BEAKER) (test code = [place] 1538) [id number] BLOOD GAS, [id number] 02:27:00 Test Item Value Reference Range Interpretation Comments PH ARTERIAL (BEAKER) (test code = 7.37 7.35-7.45 383) PCO2 ARTERIAL (BEAKER) (test code 39 mmHg 35-45 = 384) PO2 ARTERIAL (BEAKER) (test code 82 mmHg 80-90 = 385) O2 SATURATION ARTERIAL (BEAKER) 94.8 % 96.0-97.0 L (test code = 386) HCO3 ARTERIAL (BEAKER) (test code 22 mmol/L 21-29 = 388) BASE EXCESS ARTERIAL (BEAKER) -2.7 mmol/L -2.0-3.0 L (test code = 387) PATIENT TEMPERATURE (BEAKER) 38.8 C (test code = 1818) FIO2 (BEAKER) (test code = 1819) 36.0 % OXYGEN SATURATION, [id number] 00:59:00 Test Item Value Reference Range Interpretation Comments O2 SATURATION (MEASURED) (BEAKER) 56.6 % (test code = 1455) BLOOD GAS, [id number] 00:57:00 Test Item Value Reference Range Interpretation Comments PH ARTERIAL (BEAKER) (test code = 7.36 7.35-7.45 383) PCO2 ARTERIAL (BEAKER) (test code 37 mmHg 35-45 = 384) PO2 ARTERIAL (BEAKER) (test code 112 mmHg 80-90 H = 385) O2 SATURATION ARTERIAL (BEAKER) 97.6 % 96.0-97.0 H (test code = 386) HCO3 ARTERIAL (BEAKER) (test code 20 mmol/L 21-29 L = 388) BASE EXCESS ARTERIAL (BEAKER) -4.2 mmol/L -2.0-3.0 L (test code = 387) PATIENT TEMPERATURE (BEAKER) 38.8 C (test code = 1818) FIO2 (BEAKER) (test code = 1819) 40.0 % GLUCOSE-STAT [id number] 00:57:00 Test Item Value Reference Range Interpretation Comments GLUCOSE RANDOM (BEAKER) (test code 131 mg/dL 70-110 H = 652) HGB/HCT (H&H) - STAT [id number] 00:57:00 Test Item Value Reference Range Interpretation Comments HEMOGLOBIN (BEAKER) (test code = 12.9 g/dL 13.0-16.8 L 410) HEMATOCRIT (BEAKER) (test code = 38.0 % 40.0-50.0 L 411) POTASSIUM-STAT [id number] 00:56:00 Test Item Value Reference Range Interpretation Comments POTASSIUM (BEAKER) (test code = 4.1 meq/L 3.6-5.5 379) CALCIUM, [id number] 00:56:00 Test Item Value Reference Range Interpretation Comments CALCIUM IONIZED (BEAKER) (test 1.27 mmol/L 1.12-1.27 code = 698) PH, BLOOD (BEAKER) (test code = 7.39 1810) RAD, CHEST, 1 VIEW, NON [id number] 23:28:00Reason for exam:->s/p ACBShould this be performed [...] over the left mediastinum.Additional findings: None. Signed: Omkar Grant VerifiedDate/Time: 07/21/2018 23:28:57 Reading Location: [address] Transitional Reading Room RAD, CHEST, 1 VIEW, NON [id number] 23:12:00Reason for exam:->hypotensionShould this be performed at the bedside?->YesFINAL REPORT Chest, one view. HISTORY: Hypotension COMPARISON: 07/21/2018 IMPRESSION: No significant change. Supporting hardware unchanged in position. No new or enlarging pleural effusion or pneumothorax. Unchanged patchy interstitial and airspace disease bilaterally. Unchangedenlargement of the cardiomediastinal silhouette. Low lung volumes. Signed: Aziza Cooper MDReport Verified Date/Time: 07/21/2018 23:12:29 Reading Location: [address] Consult Reading Room BLOOD GAS, [id number] 22:44:00 Test Item Value Reference Range Interpretation Comments PH ARTERIAL (BEAKER) (test code = 7.36 7.35-7.45 383) PCO2 ARTERIAL (BEAKER) (test code 41 mmHg 35-45 = 384) PO2 ARTERIAL (BEAKER) (test code 170 mmHg 80-90 H = 385) O2 SATURATION ARTERIAL (BEAKER) 99.0 % 96.0-97.0 H (test code = 386) HCO3 ARTERIAL (BEAKER) (test code 23 mmol/L 21-29 = 388) BASE EXCESS ARTERIAL (BEAKER) -2.0 mmol/L -2.0-3.0 (test code = 387) PATIENT TEMPERATURE (BEAKER) 39.3 C (test code = 1818) FIO2 (BEAKER) (test code = 1819) 50.0 % POCT-GLUCOSE [id number] 22:38:00 Test Item Value Reference Range Interpretation Comments POC-GLUCOSE METER 157 mg/dL 70-110 H TESTED AT [facility] 6720 (BEAKER) (test code = [facility] [place] 1538) [id number] POCT-GLUCOSE [id number] 22:38:00 Test Item Value Reference Range Interpretation Comments POC-GLUCOSE METER 142 mg/dL 70-110 H TESTED AT [facility] 6720 (BEAKER) (test code = [facility] 1538) [address] BLOOD GAS, [id number] 21:18:00 Test Item Value Reference Range Interpretation Comments PH ARTERIAL (BEAKER) (test code = 7.31 7.35-7.45 L 383) PCO2 ARTERIAL (BEAKER) (test code 47 mmHg 35-45 H = 384) PO2 ARTERIAL (BEAKER) (test code 131 mmHg 80-90 H = 385) O2 SATURATION ARTERIAL (BEAKER) 98.1 % 96.0-97.0 H (test code = 386) HCO3 ARTERIAL (BEAKER) (test code 23 mmol/L 21-29 = 388) BASE EXCESS ARTERIAL (BEAKER) -3.1 mmol/L -2.0-3.0 L (test code = 387) PATIENT TEMPERATURE (BEAKER) 38.4 C (test code = 1818) FIO2 (BEAKER) (test code = 1819) 50.0 % HGB/HCT (H&H) - STAT [id number] 21:18:00 Test Item Value Reference Range Interpretation Comments HEMOGLOBIN (BEAKER) (test code = 13.2 g/dL 13.0-16.8 410) HEMATOCRIT (BEAKER) (test code = 39.0 % 40.0-50.0 L 411) (CELLAVISION MANUAL DIFF)[id number] 20:15:00 Test Item Value Reference Range Interpretation Comments NEUTROPHILS - REL 69 % (CELLAVISION)(BEAKER) (test code = 2816) LYMPHOCYTES - REL 8 % (CELLAVISION)(BEAKER) (test code = 2817) MONOCYTES - REL 4 % (CELLAVISION)(BEAKER) (test code = 2818) BANDS - REL (CELLAVISION)(BEAKER) 18 % 0-10 H (test code = 2826) NEUTROPHILS - ABS 12.90 K/ul 1.78-5.38 H (CELLAVISION)(BEAKER) (test code = 2830) LYMPHOCYTES - ABS 1.50 K/ul 1.32-3.57 (CELLAVISION)(BEAKER) (test code = 2831) MONOCYTES - ABS 0.75 K/uL 0.30-0.82 (CELLAVISION)(BEAKER) (test code = 2832) BANDS - ABS (CELLAVISION)(BEAKER) 3.37 K/uL 0.00-0.80 H (test code = 2840) TOTAL COUNTED (BEAKER) (test code 100 = 1351) WBC MORPHOLOGY (BEAKER) (test Normal code = 487) PLT MORPHOLOGY (BEAKER) (test Normal code = 486) ANISOCYTOSIS (BEAKER) (test code 2+ moderate = 961) MICROCYTES (BEAKER) (test code = 2+ moderate 965) ARTIFACT (CELLAVISION)(BEAKER) Present (test code = 3432) PLATELET CONCENTRATION Adequate (CELLAVISION)(BEAKER) (test code = 3438) Received comment: User comments: Slide comments:[id number] 20:10:00 Test Item Value Reference Range Interpretation Comments FIBRINOGEN LEVEL (BEAKER) (test 225 mg/dl 225-434 code = 658) [id number] 20:09:00 Test Item Value Reference Range Interpretation Comments MAGNESIUM (BEAKER) 1.8 mg/dL 1.6-2.6 Specimen slightly (test code = 627) hemolyzed [id number] 20:09:00 Test Item Value Reference Range Interpretation Comments PHOSPHORUS (BEAKER) 2.9 mg/dL 2.3-4.7 Specimen slightly (test code = 604) hemolyzed [id number] 20:09:00 Test Item Value Reference Range Interpretation Comments POTASSIUM (BEAKER) 3.9 meq/L 3.5-5.1 Specimen slightly (test code = 379) hemolyzed [id number] 20:09:00 Test Item Value Reference Range Interpretation Comments SODIUM (BEAKER) (test code = 381) 139 meq/L 136-145 [id number] 20:09:00 Test Item Value Reference Range Interpretation Comments GLUCOSE RANDOM (BEAKER) (test code 174 mg/dL 70-105 H = 652) BASIC METABOLIC [id number] 20:09:00 Test Item Value Reference Range Interpretation Comments SODIUM (BEAKER) 139 meq/L 136-145 (test code = 381) POTASSIUM (BEAKER) 3.9 meq/L 3.5-5.1 Specimen slightly (test code = 379) hemolyzed CHLORIDE (BEAKER) 109 meq/L 98-107 H (test code = 382) CO2 (BEAKER) (test 19 meq/L 22-29 L code = 355) BLOOD UREA NITROGEN 16 mg/dL 7-21 (BEAKER) (test code = 354) CREATININE (BEAKER) 1.03 mg/dL 0.57-1.25 Specimen slightly (test code = 358) hemolyzed GLUCOSE RANDOM 174 mg/dL 70-105 H (BEAKER) (test code = 652) CALCIUM (BEAKER) 8.4 mg/dL 8.4-10.2 (test code = 697) EGFR (BEAKER) (test 77 mL/min/1.73 ESTIMA BOAZ GFR IS code = 1092) sq m NOT ACCURATE CREATININE CLEARANCE IN PREDICTING GLOMERULAR FILTRATION RATE . ESTIMATED GFR I S NOT APPLICABLE FOR DIALYSIS PATIEN TS. PROTHROMBIN [id number] 20:09:00 Test Item Value Reference Range Interpretation Comments PROTIME (BEAKER) (test code = 17.7 seconds 11.7-14.7 H 759) INR (BEAKER) (test code = 370) 1.5 <=5.9 RECOMMENDED COUMADIN/WARFARIN INR THERAPY RANGESSTANDARD DOSE: 2.0 - 3.0 Includes: PROPHYLAXIS forvenous thrombosis, systemic embolization; TREATMENT for venous thrombosis and/or pulmonary embolus.HIGH RISK: Target INR is 2.5-3.5 for patients with mechanical heart valves.[id number] 20:09:00 Test Item Value Reference Range Interpretation Comments PARTIAL THROMBOPLASTIN TIME 28.8 seconds 22.5-36.0 (BEAKER) (test code = 760) LACTIC ACID, ARTERIAL, WHOLE [id number] 20:05:00 Test Item Value Reference Range Interpretation Comments LACTATE BLOOD 3.6 mmol/L 0.5-2.2 H Specimen sligh tly ARTERIAL (2) (BEAKER) hemoly zed (test code = 2874) Effective 03/24/2016: Units/Reference Range ChangeNew: 0.5-2.2 mmol/L Previous: 5-20 mg/dLOXYGEN SATURATION, [id number] 19:54:00 Test Item Value Reference Range Interpretation Comments O2 SATURATION (MEASURED) (BEAKER) 60.3 % (test code = 1455) CBC W/PLT COUNT & AUTO [id number] 19:51:00 Test Item Value Reference Range Interpretation Comments WHITE BLOOD CELL COUNT (BEAKER) 18.7 K/ L 3.5-10.5 H (test code = 775) RED BLOOD CELL COUNT (BEAKER) 4.21 M/ L 4.63-6.08 L (test code = 761) HEMOGLOBIN (BEAKER) (test code = 12.8 GM/DL 13.7-17.5 L 410) HEMATOCRIT (BEAKER) (test code = 37.0 % 40.1-51.0 L 411) MEAN CORPUSCULAR VOLUME (BEAKER) 87.9 fL 79.0-92.2 (test code = 753) MEAN CORPUSCULAR HEMOGLOBIN 30.4 pg 25.7-32.2 (BEAKER) (test code = 751) MEAN CORPUSCULAR HEMOGLOBIN CONC 34.6 GM/DL 32.3-36.5 (BEAKER) (test code = 752) RED CELL DISTRIBUTION WIDTH 11.8 % 11.6-14.4 (BEAKER) (test code = 412) PLATELET COUNT (BEAKER) (test 170 K/CU MM 150-450 code = 756) MEAN PLATELET VOLUME (BEAKER) 10.8 fL 9.4-12.4 (test code = 754) NUCLEATED RED BLOOD CELLS 0 /100 WBC 0-0 (BEAKER) (test code = 413) NEUTROPHILS RELATIVE PERCENT 75 % (BEAKER) (test code = 429) LYMPHOCYTES RELATIVE PERCENT 14 % (BEAKER) (test code = 430) MONOCYTES RELATIVE PERCENT 10 % (BEAKER) (test code = 431) EOSINOPHILS RELATIVE PERCENT 0 % (BEAKER) (test code = 432) BASOPHILS RELATIVE PERCENT 0 % (BEAKER) (test code = 437) NEUTROPHILS ABSOLUTE COUNT 14.06 K/ L 1.78-5.38 H (BEAKER) (test code = 670) LYMPHOCYTES ABSOLUTE COUNT 2.57 K/ L 1.32-3.57 (BEAKER) (test code = 414) MONOCYTES ABSOLUTE COUNT (BEAKER) 1.81 K/ L 0.30-0.82 H (test code = 415) EOSINOPHILS ABSOLUTE COUNT 0.05 K/ L 0.04-0.54 (BEAKER) (test code = 416) BASOPHILS ABSOLUTE COUNT (BEAKER) 0.04 K/ L 0.01-0.08 (test code = 417) IMMATURE GRANULOCYTES-RELATIVE 1 % 0-1 PERCENT (BEAKER) (test code = 2801) CALCIUM, [id number] 19:50:00 Test Item Value Reference Range Interpretation Comments CALCIUM IONIZED (BEAKER) (test 1.06 mmol/L 1.12-1.27 L code = 698) PH, BLOOD (BEAKER) (test code = 7.32 1810) GLUCOSE-STAT [id number] 19:50:00 Test Item Value Reference Range Interpretation Comments GLUCOSE RANDOM (BEAKER) (test code 178 mg/dL 70-110 H = 652) HGB/HCT (H&H) - STAT [id number] 19:50:00 Test Item Value Reference Range Interpretation Comments HEMOGLOBIN (BEAKER) (test code = 13.3 GM/DL 13.0-16.8 410) HEMATOCRIT (BEAKER) (test code = 39.0 % 40.0-50.0 L 411) BLOOD GAS, [id number] 19:50:00 Test Item Value Reference Range Interpretation Comments PH ARTERIAL (BEAKER) (test code = 7.32 7.35-7.45 L 383) PCO2 ARTERIAL (BEAKER) (test code 45 mmHg 35-45 = 384) PO2 ARTERIAL (BEAKER) (test code 100 mmHg 80-90 H = 385) O2 SATURATION ARTERIAL (BEAKER) 96.9 % 96.0-97.0 (test code = 386) HCO3 ARTERIAL (BEAKER) (test code 23 mmol/L 21-29 = 388) BASE EXCESS ARTERIAL (BEAKER) -3.4 mmol/L -2.0-3.0 L (test code = 387) PATIENT TEMPERATURE (BEAKER) 37.6 C (test code = 1818) FIO2 (BEAKER) (test code = 1819) 60.0 % SODIUM NA-STAT [id number] 19:49:00 Test Item Value Reference Range Interpretation Comments SODIUM (BEAKER) (test code = 381) 137 meq/L 135-148 POTASSIUM-STAT [id number] 19:49:00 Test Item Value Reference Range Interpretation Comments POTASSIUM (BEAKER) (test code = 3.8 meq/L 3.6-5.5 379) HEMOGLOBIN-STAT [id number] 19:49:00 Test Item Value Reference Range Interpretation Comments HEMOGLOBIN (BEAKER) (test code = 13.3 g/dL 13.0-16.8 410) BLOOD GAS, [id number] 18:43:00 Test Item Value Reference Range Interpretation Comments PH ARTERIAL (BEAKER) (test code = 7.41 7.35-7.45 383) PCO2 ARTERIAL (BEAKER) (test code 36 mmHg 35-45 = 384) PO2 ARTERIAL (BEAKER) (test code 283 mmHg 80-90 H = 385) O2 SATURATION ARTERIAL (BEAKER) 99.7 % 96.0-97.0 H (test code = 386) HCO3 ARTERIAL (BEAKER) (test code 22 mmol/L 21-29 = 388) BASE EXCESS ARTERIAL (BEAKER) -2.0 mmol/L -2.0-3.0 (test code = 387) PATIENT TEMPERATURE (BEAKER) 36.9 C (test code = 1818) FIO2 (BEAKER) (test code = 1819) 100.0 % GLUCOSE-STAT [id number] 18:43:00 Test Item Value Reference Range Interpretation Comments GLUCOSE RANDOM (BEAKER) (test code 165 mg/dL 70-110 H = 652) HGB/HCT (H&H) - STAT [id number] 18:43:00 Test Item Value Reference Range Interpretation Comments HEMOGLOBIN (BEAKER) (test code = 12.1 g/dL 13.0-16.8 L 410) HEMATOCRIT (BEAKER) (test code = 36.0 % 40.0-50.0 L 411) CALCIUM, [id number] 18:43:00 Test Item Value Reference Range Interpretation Comments CALCIUM IONIZED (BEAKER) (test 1.12 mmol/L 1.12-1.27 code = 698) PH, BLOOD (BEAKER) (test code = 7.41 1810) SODIUM NA-STAT [id number] 18:42:00 Test Item Value Reference Range Interpretation Comments SODIUM (BEAKER) (test code = 381) 136 meq/L 135-148 POTASSIUM-STAT [id number] 18:42:00 Test Item Value Reference Range Interpretation Comments POTASSIUM (BEAKER) (test code = 4.0 meq/L 3.6-5.5 379) [id number] 18:37:00 Test Item Value Reference Range Interpretation Comments ACTIVATED CLOTTING TIME 103 sec TEST ED AT [place] [address] (BEAKER) (test code = [facility] [address]) [id number] 18:37:00 Test Item Value Reference Range Interpretation Comments ACTIVATED CLOTTING TIME 378 sec TEST ED AT [place] [address] ([facility]) (test code = [facility] [address]) [id number] 18:37:00 Test Item Value Reference Range Interpretation Comments ACTIVATED CLOTTING TIME 439 sec TEST ED AT [place] [address] ([facility]) (test code = [facility] [address]) [address] [id number] 18:37:00 Test Item Value Reference Range Interpretation Comments ACTIVATED CLOTTING TIME 483 sec TEST ED AT [place] [address] ([facility]) (test code = [facility] [place] [address]) [address] [id number] 18:37:00 Test Item Value Reference Range Interpretation Comments ACTIVATED CLOTTING TIME 439 sec TEST ED AT [place] [address] ([facility]) (test code = [facility] [place] [address]) [address] [id number] 18:37:00 Test Item Value Reference Range Interpretation Comments ACTIVATED CLOTTING TIME 510 sec TEST ED AT [place] [address] ([facility]) (test code = [facility] [place] [address]) [id number] 18:37:00 Test Item Value Reference Range Interpretation Comments ACTIVATED CLOTTING TIME 444 sec TEST ED AT [place] [address] ([facility]) (test code = [facility] [place] [address]) [id number] THROMBOELASTOGRAPH (TEG)[id number] 18:35:00 Test Item Value Reference Range Interpretation Comments TEG ACTIVATED CLOTTING TIME 5.6 minutes 4.0-7.0 (BEAKER) (test code = 1407) TEG FIBRINOGEN ACTIVITY (BEAKER) 63.7 degrees 61.0-73.0 (test code = 1408) TEG PLT. AGGREGATION (BEAKER) 57.1 MM 55.0-65.0 (test code = 1409) TGH ACTIVATED CLOTTING TIME 5.4 minutes 4.0-7.0 (BEAKER) (test code = 1411) TGH FIBRINOGEN ACTIVITY (BEAKER) 60.6 degrees 61.0-73.0 L (test code = 1412) TGH PLT. AGGREGATION (BEAKER) 53.4 MM 55.0-65.0 L (test code = 1413) PROTHROMBIN [id number] 18:10:00 Test Item Value Reference Range Interpretation Comments PROTIME (BEAKER) (test code = 21.1 seconds 11.7-14.7 H 759) INR (BEAKER) (test code = 370) 1.8 <=5.9 RECOMMENDED COUMADIN/WARFARIN INR THERAPY RANGESSTANDARD DOSE: 2.0 - 3.0 Includes: PROPHYLAXIS forvenous thrombosis, systemic embolization; TREATMENT for venous thrombosis and/or pulmonary embolus.HIGH RISK: Target INR is 2.5-3.5 for patients with mechanical heart valves.[id number] 18:10:00 Test Item Value Reference Range Interpretation Comments PARTIAL THROMBOPLASTIN TIME 29.8 seconds 22.5-36.0 (BEAKER) (test code = 760) [id number] 18:10:00 Test Item Value Reference Range Interpretation Comments FIBRINOGEN LEVEL (BEAKER) (test 175 mg/dl 225-434 L code = 658) PLATELET [id number] 18:01:00 Test Item Value Reference Range Interpretation Comments PLATELET COUNT (BEAKER) (test code 93 K/CU MM 150-450 L = 756) CALCIUM, [id number] 17:54:00 Test Item Value Reference Range Interpretation Comments CALCIUM IONIZED (BEAKER) (test 0.90 mmol/L 1.12-1.27 L code = 698) PH, BLOOD (BEAKER) (test code = 7.39 1810) BLOOD GAS, [id number] 17:54:00 Test Item Value Reference Range Interpretation Comments PH ARTERIAL (BEAKER) (test code = 7.41 7.35-7.45 383) PCO2 ARTERIAL (BEAKER) (test code 35 mmHg 35-45 = 384) PO2 ARTERIAL (BEAKER) (test code 282 mmHg 80-90 H = 385) O2 SATURATION ARTERIAL (BEAKER) 99.7 % 96.0-97.0 H (test code = 386) HCO3 ARTERIAL (BEAKER) (test code 22 mmol/L 21-29 = 388) BASE EXCESS ARTERIAL (BEAKER) -2.5 mmol/L -2.0-3.0 L (test code = 387) PATIENT TEMPERATURE (BEAKER) 36.6 C (test code = 1818) FIO2 (BEAKER) (test code = 1819) 100.0 % GLUCOSE-STAT [id number] 17:53:00 Test Item Value Reference Range Interpretation Comments GLUCOSE RANDOM (BEAKER) (test code 182 mg/dL 70-110 H = 652) HGB/HCT (H&H) - STAT [id number] 17:53:00 Test Item Value Reference Range Interpretation Comments HEMOGLOBIN (BEAKER) (test code = 10.1 g/dL 13.0-16.8 L 410) HEMATOCRIT (BEAKER) (test code = 30.0 % 40.0-50.0 L 411) SODIUM NA-STAT [id number] 17:52:00 Test Item Value Reference Range Interpretation Comments SODIUM (BEAKER) (test code = 381) 137 meq/L 135-148 POTASSIUM-STAT [id number] 17:52:00 Test Item Value Reference Range Interpretation Comments POTASSIUM (BEAKER) (test code = 4.6 meq/L 3.6-5.5 379) BLOOD GAS, [id number] 17:23:00 Test Item Value Reference Range Interpretation Comments PH ARTERIAL (BEAKER) (test code = 7.36 7.35-7.45 383) PCO2 ARTERIAL (BEAKER) (test code 45 mmHg 35-45 = 384) PO2 ARTERIAL (BEAKER) (test code 272 mmHg 80-90 H = 385) O2 SATURATION ARTERIAL (BEAKER) 99.6 % 96.0-97.0 H (test code = 386) HCO3 ARTERIAL (BEAKER) (test code 25 mmol/L 21-29 = 388) BASE EXCESS ARTERIAL (BEAKER) -1.1 mmol/L -2.0-3.0 (test code = 387) PATIENT TEMPERATURE (BEAKER) 35.8 C (test code = 1818) FIO2 (BEAKER) (test code = 1819) 70.0 % GLUCOSE-STAT [id number] 17:23:00 Test Item Value Reference Range Interpretation Comments GLUCOSE RANDOM (BEAKER) (test code 200 mg/dL 70-110 H = 652) HGB/HCT (H&H) - STAT [id number] 17:23:00 Test Item Value Reference Range Interpretation Comments HEMOGLOBIN (BEAKER) (test code = 10.4 g/dL 13.0-16.8 L 410) HEMATOCRIT (BEAKER) (test code = 31.0 % 40.0-50.0 L 411) SODIUM NA-STAT [id number] 17:22:00 Test Item Value Reference Range Interpretation Comments SODIUM (BEAKER) (test code = 381) 138 meq/L 135-148 POTASSIUM-STAT [id number] 17:22:00 Test Item Value Reference Range Interpretation Comments POTASSIUM (BEAKER) (test code = 5.3 meq/L 3.6-5.5 379) BLOOD GAS, [id number] 16:32:00 Test Item Value Reference Range Interpretation Comments PH ARTERIAL (BEAKER) (test code = 7.34 7.35-7.45 L 383) PCO2 ARTERIAL (BEAKER) (test code 43 mmHg 35-45 = 384) PO2 ARTERIAL (BEAKER) (test code 255 mmHg 80-90 H = 385) O2 SATURATION ARTERIAL (BEAKER) 99.5 % 96.0-97.0 H (test code = 386) HCO3 ARTERIAL (BEAKER) (test code 23 mmol/L 21-29 = 388) BASE EXCESS ARTERIAL (BEAKER) -3.1 mmol/L -2.0-3.0 L (test code = 387) PATIENT TEMPERATURE (BEAKER) 36.0 C (test code = 1818) FIO2 (BEAKER) (test code = 1819) 70.0 % SODIUM NA-STAT [id number] 16:32:00 Test Item Value Reference Range Interpretation Comments SODIUM (BEAKER) (test code = 381) 134 meq/L 135-148 L POTASSIUM-STAT [id number] 16:32:00 Test Item Value Reference Range Interpretation Comments POTASSIUM (BEAKER) (test code = 6.3 meq/L 3.6-5.5 HH 379) GLUCOSE-STAT [id number] 16:32:00 Test Item Value Reference Range Interpretation Comments GLUCOSE RANDOM (BEAKER) (test code 228 mg/dL 70-110 H = 652) HGB/HCT (H&H) - STAT [id number] 16:32:00 Test Item Value Reference Range Interpretation Comments HEMOGLOBIN (BEAKER) (test code = 10.6 g/dL 13.0-16.8 L 410) HEMATOCRIT (BEAKER) (test code = 31.0 % 40.0-50.0 L 411) BLOOD GAS, [id number] 16:01:00 Test Item Value Reference Range Interpretation Comments PH ARTERIAL (BEAKER) (test code = 7.38 7.35-7.45 383) PCO2 ARTERIAL (BEAKER) (test code 38 mmHg 35-45 = 384) PO2 ARTERIAL (BEAKER) (test code 349 mmHg 80-90 H = 385) O2 SATURATION ARTERIAL (BEAKER) 99.8 % 96.0-97.0 H (test code = 386) HCO3 ARTERIAL (BEAKER) (test code 24 mmol/L 21-29 = 388) BASE EXCESS ARTERIAL (BEAKER) -2.9 mmol/L -2.0-3.0 L (test code = 387) PATIENT TEMPERATURE (BEAKER) 29.1 C (test code = 1818) FIO2 (BEAKER) (test code = 1819) 65.0 % SODIUM NA-STAT [id number] 16:01:00 Test Item Value Reference Range Interpretation Comments SODIUM (BEAKER) (test code = 381) 130 meq/L 135-148 L GLUCOSE-STAT [id number] 16:01:00 Test Item Value Reference Range Interpretation Comments GLUCOSE RANDOM (BEAKER) (test code 253 mg/dL 70-110 H = 652) HGB/HCT (H&H) - STAT [id number] 16:01:00 Test Item Value Reference Range Interpretation Comments HEMOGLOBIN (BEAKER) (test code = 10.7 g/dL 13.0-16.8 L 410) HEMATOCRIT (BEAKER) (test code = 31.0 % 40.0-50.0 L 411) POTASSIUM-STAT [id number] 16:01:00 Test Item Value Reference Range Interpretation Comments POTASSIUM (BEAKER) (test code = 6.3 meq/L 3.6-5.5 HH 379) BLOOD GAS, [id number] 15:31:00 Test Item Value Reference Range Interpretation Comments PH ARTERIAL (BEAKER) (test code = 7.37 7.35-7.45 383) PCO2 ARTERIAL (BEAKER) (test code 38 mmHg 35-45 = 384) PO2 ARTERIAL (BEAKER) (test code 350 mmHg 80-90 H = 385) O2 SATURATION ARTERIAL (BEAKER) 99.8 % 96.0-97.0 H (test code = 386) HCO3 ARTERIAL (BEAKER) (test code 24 mmol/L 21-29 = 388) BASE EXCESS ARTERIAL (BEAKER) -3.5 mmol/L -2.0-3.0 L (test code = 387) PATIENT TEMPERATURE (BEAKER) 29.3 C (test code = 1818) FIO2 (BEAKER) (test code = 1819) 65.0 % SODIUM NA-STAT [id number] 15:31:00 Test Item Value Reference Range Interpretation Comments SODIUM (BEAKER) (test code = 381) 127 meq/L 135-148 L POTASSIUM-STAT [id number] 15:31:00 Test Item Value Reference Range Interpretation Comments POTASSIUM (BEAKER) (test code = 6.7 meq/L 3.6-5.5 HH 379) GLUCOSE-STAT [id number] 15:31:00 Test Item Value Reference Range Interpretation Comments GLUCOSE RANDOM (BEAKER) (test code 239 mg/dL 70-110 H = 652) HGB/HCT (H&H) - STAT [id number] 15:31:00 Test Item Value Reference Range Interpretation Comments HEMOGLOBIN (BEAKER) (test code = 11.2 g/dL 13.0-16.8 L 410) HEMATOCRIT (BEAKER) (test code = 33.0 % 40.0-50.0 L 411) BLOOD GAS, [id number] 15:04:00 Test Item Value Reference Range Interpretation Comments PH ARTERIAL (BEAKER) (test code = 7.43 7.35-7.45 383) PCO2 ARTERIAL (BEAKER) (test code 31 mmHg 35-45 L = 384) PO2 ARTERIAL (BEAKER) (test code 459 mmHg 80-90 H = 385) O2 SATURATION ARTERIAL (BEAKER) 99.9 % 96.0-97.0 H (test code = 386) HCO3 ARTERIAL (BEAKER) (test code 22 mmol/L 21-29 = 388) BASE EXCESS ARTERIAL (BEAKER) -4.0 mmol/L -2.0-3.0 L (test code = 387) PATIENT TEMPERATURE (BEAKER) 27.7 C (test code = 1818) FIO2 (BEAKER) (test code = 1819) 80.0 % SODIUM NA-STAT [id number] 15:04:00 Test Item Value Reference Range Interpretation Comments SODIUM (BEAKER) (test code = 381) 125 meq/L 135-148 L POTASSIUM-STAT [id number] 15:04:00 Test Item Value Reference Range Interpretation Comments POTASSIUM (BEAKER) (test code = 6.2 meq/L 3.6-5.5 HH 379) GLUCOSE-STAT [id number] 15:04:00 Test Item Value Reference Range Interpretation Comments GLUCOSE RANDOM (BEAKER) (test code 220 mg/dL 70-110 H = 652) HGB/HCT (H&H) - STAT [id number] 15:04:00 Test Item Value Reference Range Interpretation Comments HEMOGLOBIN (BEAKER) (test code = 10.6 g/dL 13.0-16.8 L 410) HEMATOCRIT (BEAKER) (test code = 31.0 % 40.0-50.0 L 411) BLOOD GAS, [id number] 13:03:00 Test Item Value Reference Range Interpretation Comments PH ARTERIAL (BEAKER) (test code = 7.42 7.35-7.45 383) PCO2 ARTERIAL (BEAKER) (test code 39 mmHg 35-45 = 384) PO2 ARTERIAL (BEAKER) (test code = 129 mmHg 80-90 H 385) O2 SATURATION ARTERIAL (BEAKER) 98.7 % 96.0-97.0 H (test code = 386) HCO3 ARTERIAL (BEAKER) (test code 25 mmol/L 21-29 = 388) BASE EXCESS ARTERIAL (BEAKER) 0.2 mmol/L -2.0-3.0 (test code = 387) PATIENT TEMPERATURE (BEAKER) (test 36.5 C code = 1818) FIO2 (BEAKER) (test code = 1819) 100.0 % GLUCOSE-STAT [id number] 13:03:00 Test Item Value Reference Range Interpretation Comments GLUCOSE RANDOM (BEAKER) (test code 139 mg/dL 70-110 H = 652) SODIUM NA-STAT [id number] 13:02:00 Test Item Value Reference Range Interpretation Comments SODIUM (BEAKER) (test code = 381) 136 meq/L 135-148 POTASSIUM-STAT [id number] 13:02:00 Test Item Value Reference Range Interpretation Comments POTASSIUM (BEAKER) (test code = 4.1 meq/L 3.6-5.5 379) HGB/HCT (H&H) - STAT [id number] 13:02:00 Test Item Value Reference Range Interpretation Comments HEMOGLOBIN (BEAKER) (test code = 14.8 g/dL 13.0-16.8 410) HEMATOCRIT (BEAKER) (test code = 44.0 % 40.0-50.0 411) HEMOGLOBIN [id number] 11:07:00 Test Item Value Reference Range Interpretation Comments HEMOGLOBIN A1C (BEAKER) (test code = 5.5 % 4.3-6.1 368) RAD, CHEST, 1 VIEW, NON [id number] 22:39:00Reason for exam:->Pre opShould this be performed at the bedside?->YesFINAL REPORT Chest, one view HISTORY: Pre-op COMPARISON: None. DISCUSSION: Lungs are clear without focal consolidation. Cardiomediastinal silhouette is unremarkable. No acute osseous abnormality. No pleural effusion or pneumothorax. Visualized portions of the upper abdomen are unremarkable. IMPRESSION: No acute cardiopulmonary abnormality. Signed: Aziza Cooper MDReport Verified Date/Time: 07/20/2018 22:39:30 Reading Location: [address] Consult Reading Room [facility] 2018-07-20 22:02:00 Test Item Value Reference Range Interpretation Comments THYROID STIMULATING HORMONE 1.71 uIU/mL 0.35-4.94 (BEAKER) (test code = 772) [id number] 21:44:00 Test Item Value Reference Range Interpretation Comments MAGNESIUM (BEAKER) (test code = 2.6 mg/dL 1.6-2.6 627) COMPREHENSIVE METABOLIC [id number] 21:44:00 Test Item Value Reference Range Interpretation Comments TOTAL PROTEIN 8.0 gm/dL 6.0-8.3 (BEAKER) (test code = 770) ALBUMIN (BEAKER) 4.9 g/dL 3.5-5.0 (test code = 1145) ALKALINE PHOSPHATASE 74 U/L 40-150 (BEAKER) (test code = 346) BILIRUBIN TOTAL 1.1 mg/dL 0.2-1.2 (BEAKER) (test code = 377) SODIUM (BEAKER) (test 135 meq/L 136-145 L code = 381) POTASSIUM (BEAKER) 4.1 meq/L 3.5-5.1 (test code = 379) CHLORIDE (BEAKER) 101 meq/L 98-107 (test code = 382) CO2 (BEAKER) (test 26 meq/L 22-29 code = 355) BLOOD UREA NITROGEN 17 mg/dL 7-21 (BEAKER) (test code = 354) CREATININE (BEAKER) 1.25 mg/dL 0.57-1.25 (test code = 358) GLUCOSE RANDOM 100 mg/dL 70-105 (BEAKER) (test code = 652) CALCIUM (BEAKER) 9.8 mg/dL 8.4-10.2 (test code = 697) AST (SGOT) (BEAKER) 26 U/L 5-34 (test code = 353) ALT (SGPT) (BEAKER) 35 U/L 6-55 (test code = 347) EGFR (BEAKER) (test 62 mL/min/1.73 ESTIMA BOAZ GFR IS code = 1092) sq m NOT ACCURATE CREATININE CLEARANCE IN PREDICTING GLOMERULAR FILTRATION RATE . ESTIMATED GFR I S NOT APPLICABLE FOR DIALYSIS PATIEN TS. LIPID [id number] 21:44:00 Test Item Value Reference Range Interpretation Comments TRIGLYCERIDES (BEAKER) (test code = 203 mg/dL 540) CHOLESTEROL (BEAKER) (test code = 223 mg/dL 631) HDL CHOLESTEROL (BEAKER) (test code 32 mg/dL = 976) LDL CHOLESTEROL CALCULATED (BEAKER) 150 mg/dL (test code = 633) Triglyceride Reference Range: Low Risk <150 Borderline 150-199 High Risk 200-499 Very High Risk >=500Cholesterol Reference Range: Low Risk <200 Borderline 200-239 High Risk >240HDL Cholesterol Reference Range: Low Risk >=60 High Risk <40LDL Cholesterol Reference Range: Optimal <100 Near Optimal 100-129 Borderline 130-159 High 160-189 Very High >=[id number] 21:42:00 Test Item Value Reference Range Interpretation Comments PARTIAL THROMBOPLASTIN TIME 29.6 seconds 22.5-36.0 (BEAKER) (test code = 760) PROTHROMBIN TIME/[id number] 21:41:00 Test Item Value Reference Range Interpretation Comments PROTIME (BEAKER) (test code = 14.6 seconds 11.7-14.7 759) INR (BEAKER) (test code = 370) 1.1 <=5.9 RECOMMENDED COUMADIN/WARFARIN INR THERAPY RANGESSTANDARD DOSE: 2.0 - 3.0 Includes: PROPHYLAXIS forvenous thrombosis, systemic embolization; TREATMENT for venous thrombosis and/or pulmonary embolus.HIGH RISK: Target INR is 2.5-3.5 for patients with mechanical heart valves.URINALYSIS W/ [id number] 21:36:00 Test Item Value Reference Range Interpretation Comments COLOR (BEAKER) (test code Yellow = 470) CLARITY (BEAKER) (test Clear code = 469) SPECIFIC GRAVITY UA 1.025 1.001-1.035 (BEAKER) (test code = 468) PH UA (BEAKER) (test code 6.0 5.0-8.0 = 467) PROTEIN UA (BEAKER) (test Negative Negative code = 464) GLUCOSE UA (BEAKER) (test Negative Negative code = 365) KETONES UA (BEAKER) (test Negative Negative code = 371) BILIRUBIN UA (BEAKER) Negative Negative (test code = 462) BLOOD UA (BEAKER) (test Negative Negative code = 461) NITRITE UA (BEAKER) (test Negative Negative code = 465) LEUKOCYTE ESTERASE UA Negative Negative (BEAKER) (test code = 466) UROBILINOGEN UA (BEAKER) 2.0 mg/dL 0.2-1.0 H (test code = 463) RBC UA (BEAKER) (test code < /HPF = 519) WBC UA (BEAKER) (test code < /HPF = 520) MUCUS (BEAKER) (test code Rare = 1574) SOURCE(BEAKER) (test code Urine, Clean Catch = 2405) CBC W/PLT COUNT & AUTO [id number] 21:30:00 Test Item Value Reference Range Interpretation Comments WHITE BLOOD CELL COUNT (BEAKER) 7.5 K/ L 3.5-10.5 (test code = 775) RED BLOOD CELL COUNT (BEAKER) 5.15 M/ L 4.63-6.08 (test code = 761) HEMOGLOBIN (BEAKER) (test code = 15.4 GM/DL 13.7-17.5 410) HEMATOCRIT (BEAKER) (test code = 44.9 % 40.1-51.0 411) MEAN CORPUSCULAR VOLUME (BEAKER) 87.2 fL 79.0-92.2 (test code = 753) MEAN CORPUSCULAR HEMOGLOBIN 29.9 pg 25.7-32.2 (BEAKER) (test code = 751) MEAN CORPUSCULAR HEMOGLOBIN CONC 34.3 GM/DL 32.3-36.5 (BEAKER) (test code = 752) RED CELL DISTRIBUTION WIDTH 11.9 % 11.6-14.4 (BEAKER) (test code = 412) PLATELET COUNT (BEAKER) (test 250 K/CU MM 150-450 code = 756) MEAN PLATELET VOLUME (BEAKER) 10.5 fL 9.4-12.4 (test code = 754) NUCLEATED RED BLOOD CELLS 0 /100 WBC 0-0 (BEAKER) (test code = 413) NEUTROPHILS RELATIVE PERCENT 63 % (BEAKER) (test code = 429) LYMPHOCYTES RELATIVE PERCENT 24 % (BEAKER) (test code = 430) MONOCYTES RELATIVE PERCENT 11 % (BEAKER) (test code = 431) EOSINOPHILS RELATIVE PERCENT 1 % (BEAKER) (test code = 432) BASOPHILS RELATIVE PERCENT 0 % (BEAKER) (test code = 437) NEUTROPHILS ABSOLUTE COUNT 4.77 K/ L 1.78-5.38 (BEAKER) (test code = 670) LYMPHOCYTES ABSOLUTE COUNT 1.80 K/ L 1.32-3.57 (BEAKER) (test code = 414) MONOCYTES ABSOLUTE COUNT (BEAKER) 0.81 K/ L 0.30-0.82 (test code = 415) EOSINOPHILS ABSOLUTE COUNT 0.10 K/ L 0.04-0.54 (BEAKER) (test code = 416) BASOPHILS ABSOLUTE COUNT (BEAKER) 0.03 K/ L 0.01-0.08 (test code = 417) IMMATURE GRANULOCYTES-RELATIVE 0 % 0-1 PERCENT (BEAKER) (test code = 2801)
[2020-11-10 08:14] LABS: Basophils % 0.8 % (0-1.3); Hematocrit 44.2 % (39.6-49.0); Lymphocytes % 30.8 % (15.3-44.8); MPV 9.3 fL (7.6-11.3); RBC Red Blood Cell Count 5.02 M/uL (4.33-5.43)
[2020-11-10 08:19] LABS: Protime INR 1.03
[2020-11-10] MEDS ORDERED: ASPIRIN 81 MG CHEWABLE TABLET ONE (08:20)
[2020-11-10] MEDS ORDERED: NITROGLYCERIN 0.4 MG/TAB SL ONE (08:21)
[2020-11-10 08:30] LABS: ALT/SGPT 40 U/L (12-78); AST/SGOT 24 U/L (15-37); Albumin 4.4 g/dL (3.4-5.0); Alkaline Phosphatase 79 U/L (45-117); BUN Blood Urea Nitrogen 12 mg/dL (7-18); Bicarbonate 27 mmol/L (21-32); Bilirubin Direct 0.2 mg/dL (0-0.2); Glucose Level 111 mg/dL (74-106); Magnesium 2.2 mg/dL (1.8-2.4); NT PRO-BNP 84 pg/mL (<125); Potassium 3.8 mmol/L (3.5-5.1); Protein, Total 7.8 g/dL (6.4-8.2); Sodium Level 141 mmol/L (136-145); Troponin (Emerg Dept Use Only) < 0.02 ng/mL (0.0-0.045)
--- NOTE | 2020-11-10 09:19 | RAD REPORT ---
EXAM DESCRIPTION: Derrek Single View11/10/2020 9:03 am CLINICAL HISTORY: Chest pain COMPARISON: March 2020 FINDINGS: The lungs appear clear of acute infiltrate. The heart is normal size IMPRESSION: No acute abnormalities displayed
--- NOTE | 2020-11-10 11:41 | EDPHYS ---
Physician Documentation [facility] Name: Steven Morillo Age: 50 yrs Sex: Male : 1970 Arrival Date: 11/10/2020 Time: 07:41 Bed 2 Private MD: ED Physician Osiel Ramírez HPI: 11/10 08:22 This 50 yrs old Male presents to ER via Ambulatory with complaints of Chest rn Pain. 08:22 The patient or guardian reports chest pain that is located primarily in the substernal rn area. Onset: 1 hour(s) ago. The pain does not radiate. Associated signs and symptoms: The patient has no apparent associated signs or symptoms, Pertinent negatives: abdominal pain, cough, recent travel, shortness of breath, syncope, vomiting. The chest pain is described as a heaviness, squeezing. Duration: The patient or guardian reports a single episode. Modifying factors: The symptoms are alleviated by nothing. the symptoms are aggravated by nothing. Severity of pain: At its worst the pain was moderate in the emergency department the pain is unchanged. The patient has experienced similar episodes in the past. Reports substernal chest tightness, no radiation, no diaphoresis or sob, reports OR 2 years ago with CABG. Takes aspirin. Reports chest pain recently, evaluated at ER, told enzymes ok and sent home. [place] different from todays pain. . Historical: - Allergies: 07:54 No Known Allergies; jd3 - Home Meds: 07:54 aspirin 81 mg Oral chew 1 tab once daily [Active]; Lipitor 80 mg Oral tab 1 tab once jd3 daily [Active]; metoprolol tartrate 25 mg Oral tab 1 tab once daily [Active]; Lisinopril Oral [Active]; - PMHx: 07:54 CAD; Hyperlipidemia; Hypertension; High Cholesterol; jd3 - PSHx: 07:54 Shoulder; Hernia repair; CABG; open heart; jd3 - Immunization history:: Adult Immunizations up to date. - Social history:: Smoking status: Patient denies any tobacco usage or history of. - Family history:: not pertinent. - Hospitalizations: : No recent hospitalization is reported. ROS: 08:22 Constitutional: Negative for fever, chills, and weight loss, Eyes: Negative for injury, rn pain, redness, and discharge, ENT: Negative for injury, pain, and discharge, Neck: Negative for injury, pain, and swelling, Cardiovascular: Negative for palpitations, and edema, Respiratory: Negative for shortness of breath, cough, wheezing, and pleuritic chest pain, Abdomen/GI: Negative for abdominal pain, nausea, vomiting, diarrhea, and constipation, Back: Negative for injury and pain, MS/Extremity: Negative for injury and deformity, Skin: Negative for injury, rash, and discoloration, Neuro: Negative for headache, weakness, numbness, tingling, and seizure. Exam: 08:22 Constitutional: This is a well developed, well nourished patient who is awake, alert, rn and in no acute distress. Head/Face: Normocephalic, atraumatic. Eyes: Periorbital areas with no swelling, redness, or edema. Cardiovascular: Regular rate and rhythm. No pulse deficits. Respiratory: No increased work of breathing, no retractions or nasal flaring. Abdomen/GI: No evidence of tenderness throughout. Skin: Warm, dry MS/ Extremity: Pulses equal, no cyanosis. Neuro: Awake and alert, GCS 15 09:23 ECG was reviewed by the Attending Physician. rn Vital Signs: 07:54 BP 159 / 100; Pulse 74; Resp 16 S; Temp 97.4(TE); Pulse Ox 100% on R/A; Weight 97.52 kg jd3 (R); Height 5 ft. 11 in. (180.34 cm) (R); Pain 4/10; 08:26 BP 133 / 81; Pulse 71; Resp 17; Pulse Ox 100% ; jl7 09:30 BP 105 / 80; Pulse 58; Resp 17; Pulse Ox 99% on R/A; tw2 10:06 BP 96 / 55; Pulse 53; Resp 16; Pulse Ox 96% on R/A; tw2 11:00 BP 105 / 78; Pulse 56; Resp 17; Pulse Ox 98% on R/A; tw2 11:37 BP 108 / 79; Pulse 56; Resp 17; Pulse Ox 96% on R/A; tw2 07:54 Body Mass Index 29.99 (97.52 kg, 180.34 cm) jd3 MDM: 07:45 Patient medically screened. rn 11:39 Differential diagnosis: acute myocardial infarction, acute pericarditis, anxiety, rn coronary artery disease costochondritis, esophagitis, gastritis, pleurisy, pneumothorax, stable angina, unstable angina. The patient was given aspirin in the Emergency Department. Data reviewed: vital signs, nurses notes, lab test result(s), EKG, radiologic studies, and as a result, I will discharge patient. Counseling: I had a detailed discussion with the patient and/or guardian regarding: the historical points, exam findings, and any diagnostic results supporting the discharge/admit diagnosis, lab results, radiology results, the need for outpatient follow up, to return to the emergency department if symptoms worsen or persist or if there are any questions or concerns that arise at home. Response to treatment: the patient's symptoms have mildly improved after treatment, and as a result, I will discharge patient. Special discussion: Based on the patient's history, exam, and Dx evaluation, there is no indication for emergent intervention or inpatient Tx. It is understood by the patient/guardian that if the Sx's persist or worsen they need to return immediately for re-evaluation. I discussed with the patient/guardian in detail that at this point there is no indication for admission to the hospital. It is understood, however, that if the symptoms persist or worsen the patient needs to return immediately for re-evaluation. ED course: Trop neg x 2, no ischemia on ECG, nitro didn't help, offered admission for cardiac eval, patient prefers to go home and f/u with Dr. hairston Return precautions given and understood. . 11/10 07:51 Order name: Basic Metabolic Panel; Complete Time: 08: rn 11/10 07:51 Order name: CBC with Diff; Complete Time: 08: rn 11/10 07:51 Order name: LFT's; Complete Time: 08: rn 11/10 07:51 Order name: Magnesium; Complete Time: 08: rn 11/10 07:51 Order name: NT PRO-BNP; Complete Time: 08: rn 11/10 07:51 Order name: PT-INR; Complete Time: 08: rn 11/10 07:51 Order name: Troponin (emerg Dept Use Only); Complete Time: 08: rn 11/10 07:51 Order name: XRAY Chest (1 view); Complete Time: 09:23 rn 11/10 07:51 Order name: EKG; Complete Time: 07: rn 11/10 07:51 Order name: Cardiac monitoring; Complete Time: 08:04 rn 11/10 10:37 Order name: Troponin (emerg Dept Use Only); Complete Time: 11:38 rn 11/10 10:37 Order name: EKG; Complete Time: 10:38 rn 11/10 07:51 Order name: EKG - Nurse/Tech; Complete Time: 08:15 rn 11/10 07:51 Order name: IV Saline Lock; Complete Time: 08:04 rn 11/10 07:51 Order name: Labs collected and sent; Complete Time: 08:04 rn 11/10 07:51 Order name: O2 Per Protocol; Complete Time: 08:04 rn 11/10 07:51 Order name: O2 Sat Monitoring; Complete Time: 08:04 rn 11/10 10:37 Order name: EKG - Nurse/Tech; Complete Time: 10:47 rn EC:23 Rate is 67 beats/min. Rhythm is regular. QRS [place] is Normal. [place] interval is normal. QRS rn interval is normal. QT interval is normal. No Q waves. T waves are Normal. No ST changes noted. Clinical impression: NSR w/ Non-specific ST/T Changes. Interpreted by me. Reviewed by me. Administered Medications: 08:14 Drug: Nitroglycerin 0.4 mg Route: Sublingual; jl7 10:46 Follow up: Response: No adverse reaction jl7 08:14 Drug: Aspirin Chewable Tablet 324 mg Route: PO; jl7 10:47 Follow up: Response: No adverse reaction jl7 Disposition: 11/10/20 11:40 Discharged to Home. Impression: Chest pain, unspecified. - Condition is Stable. - Discharge Instructions: Nonspecific Chest Pain. - Prescriptions for Bactroban 2 % Topical Ointment - Apply to affected area 1 application by TOPICAL route every 12 hours; 30 gram. - Medication Reconciliation Form, Thank You Letter, Antibiotic Education, Prescription Opioid Use, Work release form, Family Work Release form. - Follow up: Private Physician; When: As needed; Reason: Recheck today's complaints, Re-evaluation by your physician. - Problem is new. - Symptoms have improved. Signatures: Dispatcher [employer] EDOsiel Mejia MD MD rn Wise, Tara RN RN tw2 Wicho Sheridan RN RN jl7 Young Early RN RN jd3 Corrections: (The following items were deleted from the chart) 12:15 11:40 11/10/2020 11:40 Discharged to Home. Impression: Chest pain, unspecified. tw2 Condition is Stable. Forms are Medication Reconciliation Form, Thank You Letter, Antibiotic Education, Prescription Opioid Use. Follow up: Private Physician; When: As needed; Reason: Recheck today's complaints, Re-evaluation by your physician. Problem is new. Symptoms have improved. rn
--- NOTE | 2020-11-10 11:41 | ER ---
Nurse's Notes [facility] Name: Steven Morillo Age: 50 yrs Sex: Male : 1970 Arrival Date: 11/10/2020 Time: 07:41 Bed 2 Private MD: Diagnosis: Chest pain, unspecified Presentation: 11/10 07:51 Chief complaint: Patient states: "I am having chest pain that started about an hour jd3 ago. I have a history of open heart surgery with a heart attack 2 years ago.". Coronavirus screen: At this time, the client does not indicate any symptoms associated with coronavirus-19. Ebola Screen: Patient negative for fever greater than or equal to 101.5 degrees Fahrenheit, and additional compatible Ebola Virus Disease symptoms. Initial Sepsis Screen: Does the patient meet any 2 criteria? No. Patient's initial sepsis screen is negative. Does the patient have a suspected source of infection? No. Patient's initial sepsis screen is negative. Risk Assessment: Do you want to hurt yourself or someone else? Patient reports no desire to harm self or others. Onset of symptoms was November 10, 2020. 07:51 Method Of Arrival: Ambulatory jd3 07:51 Acuity: TIFFANIE 2 jd3 Historical: - Allergies: 07:54 No Known Allergies; jd3 - Home Meds: 07:54 aspirin 81 mg Oral chew 1 tab once daily [Active]; Lipitor 80 mg Oral tab 1 tab once jd3 daily [Active]; metoprolol tartrate 25 mg Oral tab 1 tab once daily [Active]; Lisinopril Oral [Active]; - PMHx: 07:54 CAD; Hyperlipidemia; Hypertension; High Cholesterol; jd3 - PSHx: 07:54 Shoulder; Hernia repair; CABG; open heart; jd3 - Immunization history:: Adult Immunizations up to date. - Social history:: Smoking status: Patient denies any tobacco usage or history of. - Family history:: not pertinent. - Hospitalizations: : No recent hospitalization is reported. Screenin:26 Abuse screen: Denies threats or abuse. Denies injuries from another. Nutritional jl7 screening: No deficits noted. Tuberculosis screening: No symptoms or risk factors identified. Fall Risk IV access (20 points). Total Severino Fall Scale indicates No Risk (0-24 pts). Assessment: 07:45 General: Appears in no apparent distress. uncomfortable, Behavior is calm, cooperative, jl7 appropriate for age. Pain: Complains of pain in mid-sternal area Pain does not radiate. Pain currently is 4 out of 10 on a pain scale. Quality of pain is described as pressure, Pain began 1 hour ago. Is continuous. Neuro: Level of Consciousness is awake, alert, obeys commands, Oriented to person, place, time, situation. Cardiovascular: Heart tones S1 S3 present Patient's skin is warm and dry. Rhythm is regular. Respiratory: Airway is patent Respiratory effort is even, unlabored, Respiratory pattern is regular, symmetrical. Derm: Skin is pink, warm \\T\\ dry. 09:30 Reassessment: Patient appears in no apparent distress at this time. No changes from tw2 previously documented assessment. Patient and/or family updated on plan of care and expected duration. Pain level reassessed. Patient is alert, oriented x 3, equal unlabored respirations, skin warm/dry/pink. 10:05 Reassessment: Patient appears in no apparent distress at this time. No changes from tw2 previously documented assessment. Patient and/or family updated on plan of care and expected duration. Pain level reassessed. Patient is alert, oriented x 3, equal unlabored respirations, skin warm/dry/pink. 11:00 Reassessment: Patient appears in no apparent distress at this time. No changes from tw2 previously documented assessment. Patient and/or family updated on plan of care and expected duration. Pain level reassessed. Patient is alert, oriented x 3, equal unlabored respirations, skin warm/dry/pink. 11:38 Reassessment: Patient appears in no apparent distress at this time. No changes from tw2 previously documented assessment. Patient and/or family updated on plan of care and expected duration. Pain level reassessed. Patient is alert, oriented x 3, equal unlabored respirations, skin warm/dry/pink. Vital Signs: 07:54 BP 159 / 100; Pulse 74; Resp 16 S; Temp 97.4(TE); Pulse Ox 100% on R/A; Weight 97.52 kg jd3 (R); Height 5 ft. 11 in. (180.34 cm) (R); Pain 4/10; 08:26 BP 133 / 81; Pulse 71; Resp 17; Pulse Ox 100% ; jl7 09:30 BP 105 / 80; Pulse 58; Resp 17; Pulse Ox 99% on R/A; tw2 10:06 BP 96 / 55; Pulse 53; Resp 16; Pulse Ox 96% on R/A; tw2 11:00 BP 105 / 78; Pulse 56; Resp 17; Pulse Ox 98% on R/A; tw2 11:37 BP 108 / 79; Pulse 56; Resp 17; Pulse Ox 96% on R/A; tw2 07:54 Body Mass Index 29.99 (97.52 kg, 180.34 cm) jd3 ED Course: 07:41 Patient arrived in ED. ag5 07:45 Osiel Ramírez MD is Attending Physician. rn 07:45 Patient has correct armband on for positive identification. Placed in gown. Bed in low jl7 position. Call light in reach. Side rails up X 1. campus monitor on. Pulse ox on. NIBP on. 07:49 Wicho Sheridan, CHIRAG is Primary Nurse. jl7 07:50 EKG done, by ED staff, reviewed by Osiel Ramírez MD. em1 07:52 Triage completed. jd3 07:55 Missed attempt(s): 20 gauge in left forearm. Bleeding controlled, band aid applied, jl7 catheter tip intact. 07:55 Arm band placed on. EKG completed in triage. Results shown to MD. jd3 08:00 Initial lab(s) drawn, by me, sent to lab. Inserted saline lock: 20 gauge in left jl7 antecubital area, using aseptic technique. Blood collected. Patient maintains SpO2 saturation greater than 95% on room air. 09:09 XRAY Chest (1 view) In Process Unspecified. EDMS 10:47 Repeat lab(s) drawn. by me, sent to lab. jl7 10:52 EKG done, by ED staff, reviewed by Osiel Ramírez MD. em1 12:15 No provider procedures requiring assistance completed. IV discontinued, intact, tw2 bleeding controlled, No redness/swelling at site. Pressure dressing applied. Administered Medications: 08:14 Drug: Nitroglycerin 0.4 mg Route: Sublingual; jl7 10:46 Follow up: Response: No adverse reaction jl7 08:14 Drug: Aspirin Chewable Tablet 324 mg Route: PO; jl7 10:47 Follow up: Response: No adverse reaction jl7 Outcome: 11:40 Discharge ordered by . rn 12:15 Discharged to home ambulatory, with significant other. tw2 12:15 Condition: stable 12:15 Discharge instructions given to patient, significant other, Instructed on discharge instructions, follow up and referral plans. medication usage, Demonstrated understanding of instructions, follow-up care, medications, Prescriptions given X 1. 12:15 Patient left the ED. tw2 Signatures: Dispatcher [employer] EDMS Osiel Ramírez MD MD rn Martinez, Eric em1 Latisha Otero RN RN tw2 Wicho Sheridan RN RN jl7 Young Early RN RN jd3 Jerod Cavazos 5
[2020-11-11 20:50] VITALS: TEMP 97.4
[2020-11-11 20:57] VITALS: BP 108/79; O2SAT 96
== END 2020-11-10 12:15 | disposition home or self-care (01) ==
LOC: ER 07:39
DX: R07.9 Chest pain, unspecified (principal); I10 Essential (primary) hypertension; E78.5 Hyperlipidemia, unspecified; I25.10 Atherosclerotic heart disease of native coronary artery without angina pectoris; Z79.82 Long term (current) use of aspirin; Z95.1 Presence of aortocoronary bypass graft
CPT/HCPCS: 36415; 71045; 80048; 80076; 83735; 83880; 84484; 85025; 85610; 99285

== ENCOUNTER 2021-10-31 19:43 | Observation (INO) | payer BC ==
--- OUTSIDE RECORDS SUMMARY | 2021-10-31 19:47 | XMS REPORT | Continuity of Care Document ---
:1970 Author Organization [facility] t Address [address] [place] [address] Care Team Providers Name Role Phone JERI ESQUIVEL Attending Clinician Unavailable MEAGHAN LOVETT Attending Clinician Unavailable MEAGHAN LOVETT Admitting Clinician Unavailable Problems This patient has no known problems. Allergies, Adverse Reactions, Alerts This patient has no known allergies or adverse reactions. Medications This patient has no known medications. Procedures This patient has no known procedures. Encounters Start End Encounter Admission Attending Care Care Encounter Source Date/Time Date/Time Type Type Clinicians Facility Department ID 2020-10-31 2020-10-31 Emergency E OMKAR ESQUIVEL [facility] [address] 18:11:00 20:58:00 CITLALLI Results Test Description Test Time Test Comments [...] NOT 1092) ACCURATE CRE ATININE CLEARANCE IN [place] EDICTING GLOMERULAR FILT RATION RATE. ESTIMATED GFR IS NOT APPLICABLE FOR DIALYSIS PATIENTS. CBC W/PLT COUNT & AUTO [id number] 07:01:00 Test Item Value Reference Range Interpretation [...] PERCENT (BEAKER) (test code = 2801) POCT-GLUCOSE [id number] 09:19:00 Test Item Value Reference Range Interpretation Comments POC-GLUCOSE METER 122 mg/dL 70-110 H TESTED AT [facility] 6720 (BEAKER) (test code = [place] 1538) [address] CALCIUM, [id number] 07:21:00 Test Item Value Reference Range Interpretation Comments CALCIUM IONIZED (BEAKER) (test 0.95 mmol/L 1.12-1.27 L code = 698) PH, BLOOD (BEAKER) (test code = 7.40 1810) Check serum Ionized Calcium level after 4 hours after IV Calcium replacement. [id number] 06:37:00 Test Item Value Reference Range Interpretation Comments MAGNESIUM (BEAKER) (test code = 2.2 mg/dL 1.6-2.6 627) Check Serum Magnesium level 2 hours after IV magnesium replacement.BASIC METABOLIC [id number] 06:37:00 Test Item Value Reference Range Interpretation [...] IV magnesium replacement.CBC W/PLT COUNT & AUTO [id number] 06:18:00 Test Item Value Reference Range Interpretation [...] = 2801) RAD, CHEST, 1 VIEW, NON [id number] 04:00:00Reason for exam:->CTShould this be performed at the bedside?->YesFINAL REPORT CLINICAL INDICATION: Chest tube Comparison: 07/24/2018 The cardiomediastinal contours are stable. The lung volumes remain low. Bilateral parenchymal opacities are unchanged. There is no pneumothorax after left chest tube removal. A mediastinal drain is stable. Signed: Chuy Nunez MDReport Verified Date/Time: 07/25/2018 04:00:33 Reading Location: [address] Reading Room [id number] 06:19:00 Test Item Value Reference Range Interpretation Comments MAGNESIUM (BEAKER) (test code = 2.1 mg/dL 1.6-2.6 627) Check Serum Magnesium level 2 hours after IV magnesium replacement.BASIC METABOLIC [id number] 06:19:00 Test Item Value Reference Range Interpretation [...] level 2 hours after IV magnesium replacement.CALCIUM, [id number] 06:17:00 Test Item Value Reference Range Interpretation Comments CALCIUM IONIZED (BEAKER) (test 0.93 mmol/L 1.12-1.27 L code = 698) PH, BLOOD (BEAKER) (test code = 7.43 1810) Check serum Ionized Calcium level after 4 hours after IV Calcium replacement.CBC W/PLT COUNT & AUTO [id number] 06:03:00 Test Item Value Reference Range Interpretation [...] = 2801) RAD, CHEST, 1 VIEW, NON [id number] 04:17:00Reason for exam:->CTShould this be performed at [...] Grant Verified Date/Time: 07/24/2018 04:17:52 Reading Location: [address] Transitional Reading Room POCT-GLUCOSE METER 2018-07-23 10:40:00 Test Item Value Reference Range Interpretation Comments POC-GLUCOSE METER 159 mg/dL 70-110 H TESTED AT [facility] 6720 (BEAKER) (test code = [place] 1538) [address] POCT-GLUCOSE [id number] 06:00:00 Test Item Value Reference Range Interpretation Comments POC-GLUCOSE METER 111 mg/dL 70-110 H TESTED AT [facility] 6720 (BEAKER) (test code = [place] Galleg[place] 1538) [address] POCT-GLUCOSE [id number] 06:00:00 Test Item Value Reference Range Interpretation Comments POC-GLUCOSE METER 105 mg/dL 70-110 TESTED AT [facility] 6720 (BEAKER) (test code = [place] Galleg[place] 1538) [address] [id number] 04:46:00 Test Item Value Reference Range Interpretation Comments PHOSPHORUS (BEAKER) (test code = 2.5 mg/dL 2.3-4.7 604) [id number] 04:46:00 Test Item Value Reference Range Interpretation Comments MAGNESIUM (BEAKER) (test code = 2.0 mg/dL 1.6-2.6 627) BASIC METABOLIC [id number] 04:46:00 Test Item Value Reference Range Interpretation [...] PATIEN TS. RAD, CHEST, 1 VIEW, NON [id number] 04:43:00Reason for exam:->CTShould this be performed at the bedside?->YesFINAL REPORT CLINICAL INDICATION: Support lines. Comparison: 07/22/2018 The cardiomediastinal contours are stable. The lung volumes remain low. Central pulmonary vascular congestion and bilateral parenchymal opacities are unchanged. There is no pneumothorax. Support lines are stable. Signed: Chuy Nunez MDReport Verified Date/Time: 07/23/2018 04:43:55 Reading Location: [address] Reading Room LACTIC ACID, ARTERIAL, WHOLE [id number] 04:01:00 Test Item Value Reference Range Interpretation [...] code = 412) PLATELET COUNT (BEAKER) (test 100 K/CU MM 150-450 L code = 756) MEAN PLATELET VOLUME (BEAKER) 11.7 fL 9.4-12.4 (test code = 754) NUCLEATED RED BLOOD CELLS 0 /100 WBC 0-0 (BEAKER) (test code = 413) OXYGEN SATURATION, [id number] 03:50:00 Test Item Value Reference Range Interpretation Comments O2 SATURATION (MEASURED) ([facility]) 57.2 % (test code = 1455) For occult hypoperfusionPOCT-GLUCOSE [id number] 17:59:00 Test Item Value Reference Range Interpretation Comments POC-GLUCOSE METER 100 mg/dL 70-110 TESTED AT [place] [address] ([facility]) (test code = [facility] 1538) [address] HEMOGLOBIN [id number] 12:00:00 Test Item Value Reference Range Interpretation Comments HEMOGLOBIN A1C (BEAKER) (test code = 5.8 % 4.3-6.1 368) POCT-GLUCOSE [id number] 10:51:00 Test Item Value Reference Range Interpretation Comments POC-GLUCOSE METER 107 mg/dL 70-110 TESTED AT [place] [address] ([facility]) (test code = [facility] 1538) [address] POCT-GLUCOSE [id number] 08:35:00 Test Item Value Reference Range Interpretation Comments POC-GLUCOSE METER 124 mg/dL 70-110 H TESTED AT [place] [address] ([facility]) (test code = [facility] 1538) [address] POCT-GLUCOSE [id number] 06:33:00 Test Item Value Reference Range Interpretation Comments POC-GLUCOSE METER 116 mg/dL 70-110 H TESTED AT [place] [address] ([facility]) (test code = [facility] 1538) [address] [id number] 06:26:00 Test Item Value Reference Range Interpretation Comments PHOSPHORUS (BEAKER) (test code = 3.2 mg/dL 2.3-4.7 604) [id number] 06:26:00 Test Item Value Reference Range Interpretation Comments MAGNESIUM (BEAKER) (test code = 2.1 mg/dL 1.6-2.6 627) BASIC METABOLIC [id number] 06:26:00 Test Item Value Reference Range Interpretation [...] code = 413) LACTIC ACID, ARTERIAL, WHOLE [id number] 05:39:00 Test Item Value Reference Range Interpretation Comments LACTATE BLOOD ARTERIAL (2) 1.3 mmol/L 0.5-2.2 (BEAKER) (test code = 2874) Effective 03/24/2016: Units/Reference Range ChangeNew: 0.5-2.2 mmol/L Previous: 5-20 mg/dLOXYGEN SATURATION, [id number] 05:26:00 Test Item Value Reference Range Interpretation Comments O2 SATURATION (MEASURED) ([facility]) 56.3 % (test code = 1455) POCT-GLUCOSE [id number] 04:59:00 Test Item Value Reference Range Interpretation Comments POC-GLUCOSE METER 124 mg/dL 70-110 H TESTED AT [place] [address] ([facility]) (test code = [facility] 1538) [address] RAD, CHEST, 1 VIEW, NON [id number] 03:31:00while patient is intubated or has chest tubes.Reason for exam:->s/p ACBShould this be performed at the bedside?->YesFINAL REPORT CLINICAL INDICATION: Postop Comparison: 07/21/2018 The cardiomediastinal contours are stable. The lung volumes are low but stable after extubation. Bilateral parenchymal opacities are unchanged. There is no pneumothorax. Remaining support lines are stable. Signed: Chuy Nunez MDReport Verified Date/Time: 07/22/2018 03:31:59 Reading Location: [address] Reading Room POCT-GLUCOSE [id number] 02:29:00 Test Item Value Reference Range Interpretation Comments POC-GLUCOSE METER 118 mg/dL 70-110 H TESTED AT [place] [address] ([facility]) (test code = [facility] 1538) [address] BLOOD GAS, [id number] 02:27:00 Test Item Value Reference Range Interpretation [...] code = 1819) 36.0 % OXYGEN SATURATION, [id number] 00:59:00 Test Item Value Reference Range Interpretation Comments O2 SATURATION (MEASURED) (BEAKER) 56.6 % (test code = 1455) HGB/HCT (H&H) - STAT [id number] 00:57:00 Test Item Value Reference Range Interpretation Comments HEMOGLOBIN (BEAKER) (test code = 12.9 g/dL 13.0-16.8 L 410) HEMATOCRIT (BEAKER) (test code = 38.0 % 40.0-50.0 L 411) BLOOD GAS, [id number] 00:57:00 Test Item Value Reference Range Interpretation [...] (test code = 1819) 40.0 % GLUCOSE-STAT [id number] 00:57:00 Test Item Value Reference Range Interpretation Comments GLUCOSE RANDOM (BEAKER) (test code 131 mg/dL 70-110 H = 652) POTASSIUM-STAT [id number] 00:56:00 Test Item Value Reference Range Interpretation Comments POTASSIUM (BEAKER) (test code = 4.1 meq/L 3.6-5.5 379) CALCIUM, [id number] 00:56:00 Test Item Value Reference Range Interpretation Comments CALCIUM IONIZED (BEAKER) (test 1.27 mmol/L 1.12-1.27 code = 698) PH, BLOOD (BEAKER) (test code = 7.39 1810) RAD, CHEST, 1 VIEW, NON [id number] 23:28:00Reason for exam:->s/p ACBShould this be performed [...] Omkar Grant VerifiedDate/Time: 07/21/2018 23:28:57 Reading Location: [address] Transitional Reading Room RAD, CHEST, 1 VIEW, NON [id number] 23:12:00Reason for exam:->hypotensionShould this be performed at the bedside?->YesFINAL REPORT Chest, one view. HISTORY: Hypotension COMPARISON: 07/21/2018 IMPRESSION: No significant change. Supporting hardware unchanged in position. No new or enlarging pleural effusion or pneumothorax. Unchanged patchy interstitial and airspace disease bilaterally. Unchangedenlargement of the cardiomediastinal silhouette. Low lung volumes. Signed: Mian Cooper Verified Date/Time: 07/21/2018 23:12:29 Reading Location: [facility] B1 C013W Consult Reading Room BLOOD GAS, [id number] 22:44:00 Test Item Value Reference Range Interpretation [...] (test code = 1819) 50.0 % POCT-GLUCOSE [id number] 22:38:00 Test Item Value Reference Range Interpretation Comments POC-GLUCOSE METER 157 mg/dL 70-110 H TESTED AT [facility] 6720 (BEAKER) (test code = [place] Gal[place] 1538) [address] POCT-GLUCOSE [id number] 22:38:00 Test Item Value Reference Range Interpretation Comments POC-GLUCOSE METER 142 mg/dL 70-110 H TESTED AT [facility] 6720 (BEAKER) (test code = [address] [place] 1538) [address] BLOOD GAS, [id number] 21:18:00 Test Item Value Reference Range Interpretation [...] 1819) 50.0 % HGB/HCT (H&H) - STAT [id number] 21:18:00 Test Item Value Reference Range Interpretation [...] = 3438) Received comment: User comments: Slide comments:[id number] 20:10:00 Test Item Value Reference Range Interpretation Comments FIBRINOGEN LEVEL (BEAKER) (test 225 mg/dl 225-434 code = 658) [id number] 20:09:00 Test Item Value Reference Range Interpretation Comments MAGNESIUM (BEAKER) 1.8 mg/dL 1.6-2.6 Specimen slightly (test code = 627) hemolyzed [id number] 20:09:00 Test Item Value Reference Range Interpretation Comments PHOSPHORUS (BEAKER) 2.9 mg/dL 2.3-4.7 Specimen slightly (test code = 604) hemolyzed [id number] 20:09:00 Test Item Value Reference Range Interpretation Comments POTASSIUM (BEAKER) 3.9 meq/L 3.5-5.1 Specimen slightly (test code = 379) hemolyzed [id number] 20:09:00 Test Item Value Reference Range Interpretation Comments SODIUM (BEAKER) (test code = 381) 139 meq/L 136-145 [id number] 20:09:00 Test Item Value Reference Range Interpretation Comments GLUCOSE RANDOM (BEAKER) (test code 174 mg/dL 70-105 H = 652) BASIC METABOLIC [id number] 20:09:00 Test Item Value Reference Range Interpretation [...] NOT APPLICABLE FOR DIALYSIS PATIEN TS. PROTHROMBIN TIME/[id number] 20:09:00 Test Item Value Reference Range Interpretation Comments PROTIME (BEAKER) (test code = 17.7 seconds 11.7-14.7 H 759) INR (BEAKER) (test code = 370) 1.5 <=5.9 RECOMMENDED COUMADIN/WARFARIN INR THERAPY RANGESSTANDARD DOSE: 2.0 - 3.0 Includes: PROPHYLAXIS forvenous thrombosis, systemic embolization; TREATMENT for venous thrombosis and/or pulmonary embolus.HIGH RISK: Target INR is 2.5-3.5 for patients with mechanical heart valves.[id number] 20:09:00 Test Item Value Reference Range Interpretation Comments PARTIAL THROMBOPLASTIN TIME 28.8 seconds 22.5-36.0 (BEAKER) (test code = 760) LACTIC ACID, ARTERIAL, WHOLE [id number] 20:05:00 Test Item Value Reference Range Interpretation Comments LACTATE BLOOD 3.6 mmol/L 0.5-2.2 H Specimen sligh tly ARTERIAL (2) (BEAKER) hemoly zed (test code = 2874) Effective 03/24/2016: Units/Reference Range ChangeNew: 0.5-2.2 mmol/L Previous: 5-20 mg/dLOXYGEN SATURATION, [id number] 19:54:00 Test Item Value Reference Range Interpretation Comments O2 SATURATION (MEASURED) (BEAKER) 60.3 % (test code = 1455) CBC W/PLT COUNT & AUTO [id number] 19:51:00 Test Item Value Reference Range Interpretation [...] PERCENT (BEAKER) (test code = 2801) CALCIUM, [id number] 19:50:00 Test Item Value Reference Range Interpretation Comments CALCIUM IONIZED (BEAKER) (test 1.06 mmol/L 1.12-1.27 L code = 698) PH, BLOOD (BEAKER) (test code = 7.32 1810) GLUCOSE-STAT [id number] 19:50:00 Test Item Value Reference Range Interpretation Comments GLUCOSE RANDOM (BEAKER) (test code 178 mg/dL 70-110 H = 652) HGB/HCT (H&H) - STAT [id number] 19:50:00 Test Item Value Reference Range Interpretation Comments HEMOGLOBIN (BEAKER) (test code = 13.3 GM/DL 13.0-16.8 410) HEMATOCRIT (BEAKER) (test code = 39.0 % 40.0-50.0 L 411) BLOOD GAS, [id number] 19:50:00 Test Item Value Reference Range Interpretation [...] code = 1819) 60.0 % SODIUM NA-STAT [id number] 19:49:00 Test Item Value Reference Range Interpretation Comments SODIUM (BEAKER) (test code = 381) 137 meq/L 135-148 POTASSIUM-STAT [id number] 19:49:00 Test Item Value Reference Range Interpretation Comments POTASSIUM (BEAKER) (test code = 3.8 meq/L 3.6-5.5 379) HEMOGLOBIN-STAT [id number] 19:49:00 Test Item Value Reference Range Interpretation Comments HEMOGLOBIN (BEAKER) (test code = 13.3 g/dL 13.0-16.8 410) BLOOD GAS, [id number] 18:43:00 Test Item Value Reference Range Interpretation [...] (test code = 1819) 100.0 % GLUCOSE-STAT [id number] 18:43:00 Test Item Value Reference Range Interpretation Comments GLUCOSE RANDOM (BEAKER) (test code 165 mg/dL 70-110 H = 652) HGB/HCT (H&H) - STAT [id number] 18:43:00 Test Item Value Reference Range Interpretation Comments HEMOGLOBIN (BEAKER) (test code = 12.1 g/dL 13.0-16.8 L 410) HEMATOCRIT (BEAKER) (test code = 36.0 % 40.0-50.0 L 411) CALCIUM, [id number] 18:43:00 Test Item Value Reference Range Interpretation Comments CALCIUM IONIZED (BEAKER) (test 1.12 mmol/L 1.12-1.27 code = 698) PH, BLOOD (BEAKER) (test code = 7.41 1810) SODIUM NA-STAT [id number] 18:42:00 Test Item Value Reference Range Interpretation Comments SODIUM (BEAKER) (test code = 381) 136 meq/L 135-148 POTASSIUM-STAT [id number] 18:42:00 Test Item Value Reference Range Interpretation Comments POTASSIUM (BEAKER) (test code = 4.0 meq/L 3.6-5.5 379) [id number] 18:37:00 Test Item Value Reference Range Interpretation Comments ACTIVATED CLOTTING TIME 103 sec TEST ED AT [place] [address] ([facility]) (test code = [place] [address]) [id number] 18:37:00 Test Item Value Reference Range Interpretation Comments ACTIVATED CLOTTING TIME 378 sec TEST ED AT [place] [address] ([facility]) (test code = [place] [address]) [address] [id number] 18:37:00 Test Item Value Reference Range Interpretation Comments ACTIVATED CLOTTING TIME 439 sec TEST ED AT [place] [address] ([facility]) (test code = [place] [address]) [address] [id number] 18:37:00 Test Item Value Reference Range Interpretation Comments ACTIVATED CLOTTING TIME 483 sec TEST ED AT [place] [address] ([facility]) (test code = [place] 441) [address] [id number] 18:37:00 Test Item Value Reference Range Interpretation Comments ACTIVATED CLOTTING TIME 439 sec TEST ED AT [place] [address] ([facility]) (test code = [place] 441) [address] [id number] 18:37:00 Test Item Value Reference Range Interpretation Comments ACTIVATED CLOTTING TIME 510 sec TEST ED AT [place] [address] ([facility]) (test code = [facility] Galleg[facility] 441) [address] [id number] 18:37:00 Test Item Value Reference Range Interpretation Comments ACTIVATED CLOTTING TIME 444 sec TEST ED AT [place] [address] ([facility]) (test code = [place] [address]) [address] THROMBOELASTOGRAPH ([id number] 18:35:00 Test Item Value Reference Range Interpretation Comments TEG ACTIVATED CLOTTING TIME 5.6 minutes 4.0-7.0 ([facility]) (test code = 1407) TEG FIBRINOGEN ACTIVITY (BEAKER) 63.7 degrees 61.0-73.0 (test code = 1408) TEG PLT. AGGREGATION (BEAKER) 57.1 MM 55.0-65.0 (test code = 1409) TGH ACTIVATED CLOTTING TIME 5.4 minutes 4.0-7.0 (AKER) (test code = 1411) TGH FIBRINOGEN ACTIVITY (BEAKER) 60.6 degrees 61.0-73.0 L (test code = 1412) TGH PLT. AGGREGATION (BEAKER) 53.4 MM 55.0-65.0 L (test code = 1413) PROTHROMBIN [id number] 18:10:00 Test Item Value Reference Range Interpretation Comments PROTIME (BEAKER) (test code = 21.1 seconds 11.7-14.7 H 759) INR (BEAKER) (test code = 370) 1.8 <=5.9 RECOMMENDED COUMADIN/WARFARIN INR THERAPY RANGESSTANDARD DOSE: 2.0 - 3.0 Includes: PROPHYLAXIS forvenous thrombosis, systemic embolization; TREATMENT for venous thrombosis and/or pulmonary embolus.HIGH RISK: Target INR is 2.5-3.5 for patients with mechanical heart valves.[id number] 18:10:00 Test Item Value Reference Range Interpretation Comments PARTIAL THROMBOPLASTIN TIME 29.8 seconds 22.5-36.0 (BEAKER) (test code = 760) [id number] 18:10:00 Test Item Value Reference Range Interpretation Comments FIBRINOGEN LEVEL (BEAKER) (test 175 mg/dl 225-434 L code = 658) PLATELET [id number] 18:01:00 Test Item Value Reference Range Interpretation Comments PLATELET COUNT (BEAKER) (test code 93 K/CU MM 150-450 L = 756) CALCIUM, [id number] 17:54:00 Test Item Value Reference Range Interpretation Comments CALCIUM IONIZED (BEAKER) (test 0.90 mmol/L 1.12-1.27 L code = 698) PH, BLOOD (BEAKER) (test code = 7.39 1810) BLOOD GAS, [id number] 17:54:00 Test Item Value Reference Range Interpretation [...] (test code = 1819) 100.0 % GLUCOSE-STAT [id number] 17:53:00 Test Item Value Reference Range Interpretation Comments GLUCOSE RANDOM (BEAKER) (test code 182 mg/dL 70-110 H = 652) HGB/HCT (H&H) - STAT [id number] 17:53:00 Test Item Value Reference Range Interpretation Comments HEMOGLOBIN (BEAKER) (test code = 10.1 g/dL 13.0-16.8 L 410) HEMATOCRIT (BEAKER) (test code = 30.0 % 40.0-50.0 L 411) SODIUM NA-STAT [id number] 17:52:00 Test Item Value Reference Range Interpretation Comments SODIUM (BEAKER) (test code = 381) 137 meq/L 135-148 POTASSIUM-STAT [id number] 17:52:00 Test Item Value Reference Range Interpretation Comments POTASSIUM (BEAKER) (test code = 4.6 meq/L 3.6-5.5 379) BLOOD GAS, [id number] 17:23:00 Test Item Value Reference Range Interpretation [...] (test code = 1819) 70.0 % GLUCOSE-STAT [id number] 17:23:00 Test Item Value Reference Range Interpretation Comments GLUCOSE RANDOM (BEAKER) (test code 200 mg/dL 70-110 H = 652) HGB/HCT (H&H) - STAT [id number] 17:23:00 Test Item Value Reference Range Interpretation Comments HEMOGLOBIN (BEAKER) (test code = 10.4 g/dL 13.0-16.8 L 410) HEMATOCRIT (BEAKER) (test code = 31.0 % 40.0-50.0 L 411) SODIUM NA-STAT [id number] 17:22:00 Test Item Value Reference Range Interpretation Comments SODIUM (BEAKER) (test code = 381) 138 meq/L 135-148 POTASSIUM-STAT [id number] 17:22:00 Test Item Value Reference Range Interpretation Comments POTASSIUM (BEAKER) (test code = 5.3 meq/L 3.6-5.5 379) BLOOD GAS, [id number] 16:32:00 Test Item Value Reference Range Interpretation [...] code = 1819) 70.0 % SODIUM NA-STAT [id number] 16:32:00 Test Item Value Reference Range Interpretation Comments SODIUM (BEAKER) (test code = 381) 134 meq/L 135-148 L POTASSIUM-STAT [id number] 16:32:00 Test Item Value Reference Range Interpretation Comments POTASSIUM (BEAKER) (test code = 6.3 meq/L 3.6-5.5 HH 379) GLUCOSE-STAT [id number] 16:32:00 Test Item Value Reference Range Interpretation Comments GLUCOSE RANDOM (BEAKER) (test code 228 mg/dL 70-110 H = 652) HGB/HCT (H&H) - STAT [id number] 16:32:00 Test Item Value Reference Range Interpretation Comments HEMOGLOBIN (BEAKER) (test code = 10.6 g/dL 13.0-16.8 L 410) HEMATOCRIT (BEAKER) (test code = 31.0 % 40.0-50.0 L 411) BLOOD GAS, [id number] 16:01:00 Test Item Value Reference Range Interpretation [...] code = 1819) 65.0 % SODIUM NA-STAT [id number] 16:01:00 Test Item Value Reference Range Interpretation Comments SODIUM (BEAKER) (test code = 381) 130 meq/L 135-148 L GLUCOSE-STAT [id number] 16:01:00 Test Item Value Reference Range Interpretation Comments GLUCOSE RANDOM (BEAKER) (test code 253 mg/dL 70-110 H = 652) HGB/HCT (H&H) - STAT [id number] 16:01:00 Test Item Value Reference Range Interpretation Comments HEMOGLOBIN (BEAKER) (test code = 10.7 g/dL 13.0-16.8 L 410) HEMATOCRIT (BEAKER) (test code = 31.0 % 40.0-50.0 L 411) POTASSIUM-STAT [id number] 16:01:00 Test Item Value Reference Range Interpretation Comments POTASSIUM (BEAKER) (test code = 6.3 meq/L 3.6-5.5 HH 379) BLOOD GAS, [id number] 15:31:00 Test Item Value Reference Range Interpretation [...] code = 1819) 65.0 % SODIUM NA-STAT [id number] 15:31:00 Test Item Value Reference Range Interpretation Comments SODIUM (BEAKER) (test code = 381) 127 meq/L 135-148 L POTASSIUM-STAT [id number] 15:31:00 Test Item Value Reference Range Interpretation Comments POTASSIUM (BEAKER) (test code = 6.7 meq/L 3.6-5.5 HH 379) GLUCOSE-STAT [id number] 15:31:00 Test Item Value Reference Range Interpretation Comments GLUCOSE RANDOM (BEAKER) (test code 239 mg/dL 70-110 H = 652) HGB/HCT (H&H) - STAT [id number] 15:31:00 Test Item Value Reference Range Interpretation Comments HEMOGLOBIN (BEAKER) (test code = 11.2 g/dL 13.0-16.8 L 410) HEMATOCRIT (BEAKER) (test code = 33.0 % 40.0-50.0 L 411) BLOOD GAS, [id number] 15:04:00 Test Item Value Reference Range Interpretation [...] code = 1819) 80.0 % SODIUM NA-STAT [id number] 15:04:00 Test Item Value Reference Range Interpretation Comments SODIUM (BEAKER) (test code = 381) 125 meq/L 135-148 L POTASSIUM-STAT [id number] 15:04:00 Test Item Value Reference Range Interpretation Comments POTASSIUM (BEAKER) (test code = 6.2 meq/L 3.6-5.5 HH 379) GLUCOSE-STAT [id number] 15:04:00 Test Item Value Reference Range Interpretation Comments GLUCOSE RANDOM (BEAKER) (test code 220 mg/dL 70-110 H = 652) HGB/HCT (H&H) - STAT [id number] 15:04:00 Test Item Value Reference Range Interpretation Comments HEMOGLOBIN (BEAKER) (test code = 10.6 g/dL 13.0-16.8 L 410) HEMATOCRIT (BEAKER) (test code = 31.0 % 40.0-50.0 L 411) BLOOD GAS, [id number] 13:03:00 Test Item Value Reference Range Interpretation [...] (test code = 1819) 100.0 % GLUCOSE-STAT [id number] 13:03:00 Test Item Value Reference Range Interpretation Comments GLUCOSE RANDOM (BEAKER) (test code 139 mg/dL 70-110 H = 652) SODIUM NA-STAT [id number] 13:02:00 Test Item Value Reference Range Interpretation Comments SODIUM (BEAKER) (test code = 381) 136 meq/L 135-148 POTASSIUM-STAT [id number] 13:02:00 Test Item Value Reference Range Interpretation Comments POTASSIUM (BEAKER) (test code = 4.1 meq/L 3.6-5.5 379) HGB/HCT (H&H) - STAT [id number] 13:02:00 Test Item Value Reference Range Interpretation Comments HEMOGLOBIN (BEAKER) (test code = 14.8 g/dL 13.0-16.8 410) HEMATOCRIT (BEAKER) (test code = 44.0 % 40.0-50.0 411) HEMOGLOBIN [id number] 11:07:00 Test Item Value Reference Range Interpretation Comments HEMOGLOBIN A1C (BEAKER) (test code = 5.5 % 4.3-6.1 368) RAD, CHEST, 1 VIEW, NON [id number] 22:39:00Reason for exam:->Pre opShould this be performed at the bedside?->YesFINAL REPORT Chest, one view HISTORY: Pre-op COMPARISON: None. DISCUSSION: Lungs are clear without focal consolidation. Cardiomediastinal silhouette is unremarkable. No acute osseous abnormality. No pleural effusion or pneumothorax. Visualized portions of the upper abdomen are unremarkable. IMPRESSION: No acute cardiopulmonary abnormality. Signed: Mian Cooper MDReport Verified Date/Time: 07/20/2018 22:39:30 Reading Location: [address] Consult Reading Room [facility] 2018-07-20 22:02:00 Test Item Value Reference Range Interpretation Comments THYROID STIMULATING HORMONE 1.71 uIU/mL 0.35-4.94 (BEAKER) (test code = 772) [id number] 21:44:00 Test Item Value Reference Range Interpretation Comments MAGNESIUM (BEAKER) (test code = 2.6 mg/dL 1.6-2.6 627) COMPREHENSIVE METABOLIC [id number] 21:44:00 Test Item Value Reference Range Interpretation [...] NOT APPLICABLE FOR DIALYSIS PATIEN TS. LIPID [id number] 21:44:00 Test Item Value Reference Range Interpretation [...] 100-129 Borderline 130-159 High 160-189 Very High [id number] 21:42:00 Test Item Value Reference Range Interpretation Comments PARTIAL THROMBOPLASTIN TIME 29.6 seconds 22.5-36.0 (BEAKER) (test code = 760) PROTHROMBIN TIME/[id number] 21:41:00 Test Item Value Reference Range Interpretation Comments PROTIME (BEAKER) (test code = 14.6 seconds 11.7-14.7 759) INR (BEAKER) (test code = 370) 1.1 <=5.9 RECOMMENDED COUMADIN/WARFARIN INR THERAPY RANGESSTANDARD DOSE: 2.0 - 3.0 Includes: PROPHYLAXIS forvenous thrombosis, systemic embolization; TREATMENT for venous thrombosis and/or pulmonary embolus.HIGH RISK: Target INR is 2.5-3.5 for patients with mechanical heart valves.URINALYSIS W/ [id number] 21:36:00 Test Item Value Reference Range Interpretation [...] SOURCE(BEAKER) (test code Urine, Clean Catch = 2795) CBC W/PLT COUNT & AUTO [id number] 21:30:00 Test Item Value Reference Range Interpretation [...] % 0-1 PERCENT (BEAKER) (test code = 8291)
[2021-10-31] MEDS ORDERED: ONDANSETRON 4 MG/2 ML VIAL ONE (20:32)
[2021-10-31] MEDS ORDERED: ASPIRIN 325 MG TAB ONE (20:32)
[2021-10-31] MEDS ORDERED: MORPHINE 4 MG/ML SYR ONE ×2 (20:32→21:31)
[2021-10-31 20:51] LABS: Absolute Lymphocytes (CBC) 2.2 K/uL (0.7-4.9); Basophils % 0.9 % (0-1.3); Hematocrit 40.6 % (39.6-49.0); Lymphocytes % 34.7 % (15.3-44.8); MPV 8.4 fL (7.6-11.3); RBC Red Blood Cell Count 4.63 M/uL (4.33-5.43)
[2021-10-31 20:52] LABS: Protime INR 1.01
[2021-10-31 21:19] LABS: ALT/SGPT 44 U/L (12-78); AST/SGOT 19 U/L (15-37); Albumin 4.2 g/dL (3.4-5.0); Alkaline Phosphatase 67 U/L (45-117); BUN Blood Urea Nitrogen 20 mg/dL (7-18); Bicarbonate 25 mmol/L (21-32); Bilirubin Direct 0.2 mg/dL (0-0.2); Bilirubin Total 0.6 mg/dL (0.2-1.0); Glucose Level 108 mg/dL (74-106); Magnesium 2.3 mg/dL (1.8-2.4); NT PRO-BNP 49 pg/mL (<125); Potassium 3.9 mmol/L (3.5-5.1); Protein, Total 7.6 g/dL (6.4-8.2); Sodium Level 141 mmol/L (136-145); Troponin (Emerg Dept Use Only) < 0.02 ng/mL (0.0-0.045)
--- NOTE | 2021-10-31 21:22 | RAD REPORT ---
EXAM DESCRIPTION: RAD - Chest Single View - 10/31/2021 8:48 pm CLINICAL HISTORY: CHEST PAIN COMPARISON: Chest Single View dated 11/10/2020; Chest Single View dated 03/22/2020; Chest Single View dated 07/19/2018; CHEST PA AND LAT 2 VIEW dated 05/18/2013 FINDINGS: Lines: None. Lungs: No evidence of edema or pneumonia. Pleural: No significant pleural effusions or pneumothorax. Cardiac: The heart size is within normal limits. Bones: No acute fractures. Sternotomy. Other: IMPRESSION: No acute cardiopulmonary disease.
--- NOTE | 2021-10-31 21:50 | ER ---
Nurse's Notes [facility] Name: Steven Morillo Age: 50 yrs Sex: Male : 1970 Arrival Date: 10/31/2021 Time: 19:45 Bed 15 Private MD: Diagnosis: Angina pectoris, unspecified Presentation: 10/31 20:01 Chief complaint: Patient states: he started having chest pain approx 90 mins prior to bb arrival the pain is constant, does not radiate, denies other symptoms but has had a [place] with a CABG in the past. Coronavirus screen: At this time, the client does not indicate any symptoms associated with coronavirus-19. Ebola Screen: No symptoms or risks identified at this time. Initial Sepsis Screen: Does the patient meet any 2 criteria? No. Patient's initial sepsis screen is negative. Does the patient have a suspected source of infection? No. Patient's initial sepsis screen is negative. Risk Assessment: Do you want to hurt yourself or someone else? Patient reports no desire to harm self or others. Onset of symptoms was October 31, 2021. 20:01 Method Of Arrival: Ambulatory bb 20:01 Acuity: TIFFANIE 2 bb Triage Assessment: 20:54 General: Appears in no apparent distress. Behavior is calm, cooperative. Pain: mr2 Complains of pain in mid-sternal area Pain does not radiate. Pain currently is 4 out of 10 on a pain scale. Quality of pain is described as pressure, Also complains of no other associated symptoms. Historical: - Allergies: 20:04 No Known Allergies; bb - Home Meds: 20:04 metoprolol tartrate 25 mg Oral tab 1 tab once daily [Active]; lisinopril Oral [Active]; bb Lipitor 80 mg Oral tab 1 tab once daily [Active]; - PMHx: 20:04 CAD; Hyperlipidemia; Hypertension; bb - PSHx: 20:04 Coronary artery bypass graft; shoulder surgery; hernia; elbow surgery; bb - Immunization history:: Adult Immunizations up to date, Client reports having NOT received the Covid vaccine. - Social history:: Smoking status: Patient denies any tobacco usage or history of. Patient uses alcohol, occasionally. Patient/guardian denies using street drugs. Screenin:52 Abuse screen: Denies threats or abuse. Denies injuries from another. Nutritional mr2 screening: No deficits noted. Tuberculosis screening: No symptoms or risk factors identified. Fall Risk None identified. Assessment: 20:52 Pain: Complains of pain in mid-sternal area Pain does not radiate. Pain began suddenly, mr2 2 hours ago. Cardiovascular: Reports chest pain, Denies diaphoresis, lightheadedness, shortness of breath, vomiting. Vital Signs: 20:01 BP 147 / 91; Pulse 74; Resp 16 S; Pulse Ox 100% on R/A; Weight 97.52 kg (R); Height 5 bb ft. 11 in. (180.34 cm) (R); 20:13 Temp 97.8(O); oe 23:32 BP 141 / 88; Pulse 72; Resp 16; Temp 98.5; Pulse Ox 98% on R/A; mr2 20:01 Body Mass Index 29.99 (97.52 kg, 180.34 cm) bb ED Course: 19:45 Patient arrived in ED. da3 20:00 EKG completed in triage. Results shown to MD. bb 20:02 Hai Stover PA is PHCP. cp 20:02 Hai Mcfadden MD is Attending Physician. cp 20:04 Triage completed. bb 20:04 Arm band placed on. bb 20:27 Laron Wilder, RN is Primary Nurse. mr2 20:41 Initial lab(s) drawn, by me, sent to lab. Inserted saline lock: 22 gauge in right lt3 antecubital area, using aseptic technique. 20:48 XRAY Chest (1 view) In Process Unspecified. EDMS 20:52 Patient has correct armband on for positive identification. Bed in low position. Call mr2 light in reach. Side rails up X2. 20:52 No provider procedures requiring assistance completed. Patient maintains SpO2 mr2 saturation greater than 95% on room air. 20:54 helmet hat puncher on. mr2 21:50 Anna Viera MD is Hospitalizing Provider. cp Administered Medications: 20:32 Drug: Aspirin Chewable Tablet 324 mg Route: PO; mr2 20:33 Drug: morphine 4 mg Route: IVP; Site: left antecubital; mr2 20:33 Drug: Zofran (Ondansetron) 4 mg Route: IVP; Site: left antecubital; mr2 21:40 Drug: morphine 4 mg Route: IVP; Site: left antecubital; mr2 Outcome: 21:50 Decision to Hospitalize by Provider. aida 11/01 01:37 Patient left the ED. lp1 Signatures: Dispatcher [employer] EDAlicia Islas RN RN bb Pena, Laura RN RN lp1 Hai Stover PA PA cp Espinosa, Orlando oe Allan, David, RN RN da3 Laron Wilder RN RN mr2 Nia Sampson 3 Corrections: (The following items were deleted from the chart) 10/31 20:06 20:04 PMHx: High Cholesterol; anjali alba
--- NOTE | 2021-10-31 21:51 | EDPHYS ---
Physician Documentation [facility] Name: Steven Morillo Age: 50 yrs Sex: Male : 1970 Arrival Date: 10/31/2021 Time: 19:45 Bed 15 Private MD: ED Physician Hai Mcfadden HPI: 10/31 20:10 This 50 yrs old Male presents to ER via Ambulatory with complaints of Chest Pain > 30 cp y/o. 20:10 The patient or guardian reports chest pain that is located primarily in the substernal cp area. 20:10 Onset: 90 minute(s) ago. The pain does not radiate. Associated signs and symptoms: cp Pertinent negatives: abdominal pain, cough, diaphoresis, lower extremity pain, lower extremity swelling, palpitations, vomiting. The chest pain is described as a pressure. Duration: The patient or guardian reports a single episode, that is still ongoing, and unchanged. 20:10 Severity of pain: in the emergency department the pain is unchanged despite home cp interventions. Historical: - Allergies: 20:04 No Known Allergies; bb - Home Meds: 20:04 metoprolol tartrate 25 mg Oral tab 1 tab once daily [Active]; lisinopril Oral [Active]; bb Lipitor 80 mg Oral tab 1 tab once daily [Active]; - PMHx: 20:04 CAD; Hyperlipidemia; Hypertension; bb - PSHx: 20:04 Coronary artery bypass graft; shoulder surgery; hernia; elbow surgery; bb - Immunization history:: Adult Immunizations up to date, Client reports having NOT received the Covid vaccine. - Social history:: Smoking status: Patient denies any tobacco usage or history of. Patient uses alcohol, occasionally. Patient/guardian denies using street drugs. ROS: 20:15 Constitutional: Negative for body aches, chills, fever, poor PO intake. cp 20:15 Eyes: Negative for injury, pain, redness, and discharge. cp 20:15 ENT: Negative for ear pain, sore throat, difficulty swallowing, difficulty handling secretions. 20:15 Cardiovascular: Positive for chest pain, Negative for edema, palpitations. 20:15 Respiratory: Negative for cough, shortness of breath, wheezing. 20:15 Abdomen/GI: Positive for nausea, Negative for abdominal pain, vomiting, diarrhea, constipation. 20:15 Back: Negative for pain at rest, pain with movement, radiated pain. 20:15 : Negative for urinary symptoms. 20:15 Skin: Negative for cellulitis, rash. 20:15 Neuro: Negative for altered mental status, dizziness, headache, numbness, syncope, weakness. 20:15 All other systems are negative. Exam: 20:06 ECG was reviewed by the Attending Physician. cp 20:20 Constitutional: The patient appears in no acute distress, alert, awake, cp non-diaphoretic, non-toxic, well developed, well nourished, obese. 20:20 Head/Face: Normocephalic, atraumatic. cp 20:20 Eyes: Periorbital structures: appear normal, Conjunctiva: normal, no exudate, no injection, Sclera: no appreciated abnormality, Lids and lashes: appear normal, bilaterally. 20:20 ENT: External ear(s): are unremarkable, Nose: is normal, Mouth: Lips: moist, Oral mucosa: moist, Posterior pharynx: Airway: no evidence of obstruction, patent. 20:20 Neck: ROM/movement: is normal, is supple, without pain, no range of motions limitations, no nuchal rigidity. 20:20 Chest/axilla: Inspection: normal, Palpation: is normal, no crepitus, no tenderness. 20:20 Cardiovascular: Rate: normal, Rhythm: regular, Edema: is not appreciated, JVD: is not appreciated. 20:20 Respiratory: the patient does not display signs of respiratory distress, Respirations: normal, no use of accessory muscles, no retractions, labored breathing, is not present, Breath sounds: are clear throughout, no decreased breath sounds, no stridor, no wheezing. 20:20 Abdomen/GI: Inspection: abdomen appears normal, Bowel sounds: active, all quadrants, Palpation: abdomen is soft and non-tender, in all quadrants. 20:20 Back: pain, is absent, ROM is normal. 20:20 Neuro: Orientation: to person, place \\T\\ time. Mentation: is normal, Motor: moves all fours, strength is normal, Sensation: no obvious gross deficits. Vital Signs: 20:01 BP 147 / 91; Pulse 74; Resp 16 S; Pulse Ox 100% on R/A; Weight 97.52 kg (R); Height 5 bb ft. 11 in. (180.34 cm) (R); 20:13 Temp 97.8(O); oe 23:32 BP 141 / 88; Pulse 72; Resp 16; Temp 98.5; Pulse Ox 98% on R/A; mr2 20:01 Body Mass Index 29.99 (97.52 kg, 180.34 cm) bb MDM: 20:04 Patient medically screened. cp 21:00 Differential diagnosis: acute myocardial infarction, cholecystitis, Cholelithiasis cp costochondritis, pericarditis, pleurisy, pneumonia, pneumothorax, pulmonary embolus, stable angina, thoracic aortic disection, unstable angina. 21:45 The patient was given aspirin in the Emergency Department. cp 21:45 Data reviewed: vital signs, nurses notes, lab test result(s), EKG, radiologic studies, cp plain films. Test interpretation: by ED physician or midlevel provider: ECG, plain radiologic studies. Counseling: I had a detailed discussion with the patient and/or guardian regarding: the historical points, exam findings, and any diagnostic results supporting the discharge/admit diagnosis, lab results, radiology results, the need for further work-up and treatment in the hospital. Response to treatment: Pain improved. Initial EKG and troponin negative, will admit to services of DR Viera for continued monitoring. 10/31 20:11 Order name: Basic Metabolic Panel; Complete Time: 21:23 10/31 21:23 Interpretation: Normal except: CL 108; GLUC 108; BUN 20; GFR 80. 10/31 20:11 Order name: CBC with Diff; Complete Time: 21:23 10/31 21:24 Interpretation: Reviewed. 10/31 20:11 Order name: LFT's; Complete Time: 21:23 10/31 20:11 Order name: Magnesium; Complete Time: 21:23 10/31 20:11 Order name: NT PRO-BNP; Complete Time: 21:23 10/31 20:11 Order name: PT-INR; Complete Time: 21:23 10/31 20:11 Order name: Troponin (emerg Dept Use Only); Complete Time: 21:23 10/31 22:57 Order name: Basic Metabolic Panel [facility] 10/31 22:57 Order name: Basic Metabolic Panel [facility] 10/31 22:58 Order name: Troponin I EDMS 10/31 22:58 Order name: Troponin I EDMS 10/31 22:58 Order name: Troponin I EDMS 10/31 22:58 Order name: CBC with Automated Diff EDMS 10/31 22:58 Order name: CBC with Automated Diff EDMS 10/31 20:11 Order name: XRAY Chest (1 view); Complete Time: 21:23 cp 10/31 20:11 Order name: EKG; Complete Time: 20:12 cp 10/31 20:11 Order name: Cardiac monitoring; Complete Time: 20:13 cp 10/31 20:11 Order name: EKG - Nurse/Tech; Complete Time: 20:13 cp 10/31 20:11 Order name: IV Saline Lock; Complete Time: 20:41 cp 10/31 22:58 Order name: Regular EDMS 10/31 22:58 Order name: EKG Electrocardiogram EDMS 10/31 22:58 Order name: EKG Electrocardiogram EDMS 10/31 22:58 Order name: EKG Electrocardiogram EDMS 10/31 22:58 Order name: EKG Electrocardiogram EDMS 10/31 22:59 Order name: COVID-19 (Coronavirus) Document "Date of Onset" if Symptomatic cp 11/01 00:11 Order name: SARS-COV-2 RT PCR EDMS 10/31 20:11 Order name: Labs collected and sent; Complete Time: 20:41 cp 10/31 20:11 Order name: O2 Per Protocol; Complete Time: 20:41 cp 10/31 20:11 Order name: O2 Sat Monitoring; Complete Time: 20:41 cp EC:06 Rate is 74 beats/min. Rhythm is regular. HI interval is normal. QRS interval is normal. cp QT interval is normal. Interpreted by me. Reviewed by me. Administered Medications: 20:32 Drug: Aspirin Chewable Tablet 324 mg Route: PO; mr2 20:33 Drug: morphine 4 mg Route: IVP; Site: left antecubital; mr2 20:33 Drug: Zofran (Ondansetron) 4 mg Route: IVP; Site: left antecubital; mr2 21:40 Drug: morphine 4 mg Route: IVP; Site: left antecubital; mr2 Disposition Summary: 10/31/21 21:50 Hospitalization Ordered Hospitalization Status: Observation cp Provider: Anna Viera cp Location: Telemetry/MedSurg (observation) cp Condition: Stable cp Problem: new cp Symptoms: have improved cp Bed/Room Type: Standard cp Room Assignment: 205(11/01/21 00:16) cg Diagnosis - Angina pectoris, unspecified cp Forms: - Medication Reconciliation Form cp - SBAR form cp Addendum: 11/02/2021 11:11 Co-signature as Attending Physician, Hai Mcfadden MD I agree with the assessment and c waller plan of care. Signatures: Dispatcher [employer] EDHai Bustillo MD MD cha Ballard, Brenda, RN RN Hai Smith PA PA cp Garcia, Cindy, RN RN Laron Wilder RN RN mr2 Corrections: (The following items were deleted from the chart) 10/31 20:06 20:04 PMHx: High Cholesterol; anjali alba 11/01 00:16 10/31 21:50 cp cg
[2021-10-31] MEDS ORDERED: MORPHINE 4 MG/ML SYR IV PRN (22:54)
[2021-10-31] MEDS ORDERED: ONDANSETRON 4 MG/2 ML VIAL IV PRN (22:54)
[2021-11-01 02:34] VITALS: BMI 30.8
[2021-11-01 05:29] LABS: Absolute Lymphocytes (CBC) 2.2 K/uL (0.7-4.9); Basophils % 0.9 % (0-1.3); Hematocrit 40.1 % (39.6-49.0); Lymphocytes % 37.5 % (15.3-44.8); MPV 8.3 fL (7.6-11.3)
[2021-11-01 05:53] LABS: Potassium 3.9 mmol/L (3.5-5.1)
[2021-11-01] MEDS ORDERED: lisinopriL 10 MG TAB PO SCH (09:00)
[2021-11-01] MEDS ORDERED: METOPROLOL TAR 25 MG TAB PO SCH (09:00)
[2021-11-01] MEDS ORDERED: ASPIRIN EC 81 MG TAB PO SCH (09:00)
[2021-11-01 10:52] VITALS: O2SAT 97
[2021-11-01 17:05] VITALS: BP 131/73; TEMP 97.8
--- NOTE | 2021-11-01 17:36 | CON ---
Date of Consultation: 11/01/2021 Reason For Consultation: Chest pain. History Of Present Illness: This is a 50-year-old male with history of coronary artery disease, stat us post 4-vessel CABG in 2018. Yesterday after work, he had an episode with chest pain, lasted for a bout 2-3 hours. He was doing some work and he thinks he might have pulled a muscle. He has been parul st pain free today. Does not have any exertional chest pain. No shortness of breath and no shortnes s of breath with exertion. Denies having any nausea, vomiting, or diaphoresis with the episode and n o other complaints. Past Medical History: Coronary artery disease, dyslipidemia, hypertension. Medications: Refer to reconciliation sheet for detailed list. Allergies: NO KNOWN DRUG ALLERGIES. Past Surgical History: Coronary artery bypass surgery 4-vessel bypass in 2018. Social History: Does not smoke or drink. Does not use any drugs. Family History: No premature coronary artery disease or cancer. Review of Systems: All systems reviewed are negative except what mentioned in HPI. Physical Examination: Vital Signs: Reviewed. Head and Neck: Pupils are equal, reactive to light. Intact eye movements. No JVD. No cervical lym phadenopathy. Neck: Supple. Thyroid is not enlarged. Lungs: Clear to auscultation bilaterally. No rhonchi, rales, or crackles. No accessory muscle use. Heart: Regular rate and rhythm. No extra sounds. Abdomen: Soft, nontender. Bowel sounds positive. No organomegaly. No masses or hernia. No rigidi ty or rebound. Extremities: No edema, clubbing, or cyanosis. Intact pulses. Skin: No rash. Neuro: Alert, awake, oriented x3. No acute focal deficits appreciated. Investigations: Hemoglobin is 13.8, white blood cell count is 5.8. Troponins x3 are negative. Crea tinine 0.98. EKG without acute specific abnormalities. Assessment And Recommendations: 1.Chest pain, known history of coronary artery disease; however, myocardial infarction was ruled out . Chest pain appears to be atypical. From Cardiology standpoint, the patient can be released and as ked him to call the office to arrange for exercise nuclear stress test as an outpatient. 2.Coronary artery disease. No acute event. Chest pain is atypical. Plan for stress test as an out patient. SR/MODL Voice ID: [id number] Report ID: [id number]
[2021-11-01] MEDS ORDERED: ATORVASTATIN 20 MG TAB PO SCH (21:00)
== END 2021-11-01 18:25 | disposition home or self-care (01) ==
LOC: ER 19:43 → ERHOLD 23:18 → 2ND 11-01 01:35
PROVIDERS: ADMIT Internal Medicine; ATTEND Internal Medicine
DX: R07.89 Other chest pain (principal); I25.10 Atherosclerotic heart disease of native coronary artery without angina pectoris; E78.5 Hyperlipidemia, unspecified; I10 Essential (primary) hypertension; Z95.1 Presence of aortocoronary bypass graft; Z20.822 Contact with and (suspected) exposure to COVID-19
CPT/HCPCS: 93005; 85025 ×2; 80048 ×2; 36415; 83735; 85610; 80076; 84484 ×3; 83880; 71045; 96375; 96374; 99285; U0003; J2405; G0378 ×2

== ENCOUNTER 2021-11-09 11:00 | Day surgery (SDC) | payer BC ==
[2021-11-09] MEDS ORDERED: NA CHLORIDE 0.9% 500 ML ONE (11:15)
[2021-11-09] MEDS ORDERED: HEPA 1000U/500MLS 1,000 UNIT/500 ML BAG IV ONE ×3 (11:43→12:42)
[2021-11-09] MEDS ORDERED: LIDOCAINE 1% 20 ML MDV ONE (11:43)
[2021-11-09] MEDS ORDERED: MIDAZOLAM HCL 2 MG/2 ML INJ ONE (12:04)
[2021-11-09] MEDS ORDERED: FENTANYL CITR 100 MCG/2 ML ONE (12:04)
[2021-11-09] MEDS ORDERED: NITROGLYCERIN/D5W 25 MG/250 ML BTL IV ONE (12:05)
[2021-11-09] MEDS ORDERED: NITROGLYCERIN 100 MCG/ML SYR (for cath lab use only) IV ONE (12:05)
[2021-11-09] MEDS ORDERED: ATROPINE SULF 1 MG/10 ML SYR IV ONE (12:05)
[2021-11-09] MEDS ORDERED: HEPARIN 5000 UNIT/ML 1 ML VIAL ONE (12:16)
[2021-11-09] MEDS ORDERED: CLOPIDOGREL 75 MG TABLET ONE ×2 (12:32→12:37)
[2021-11-09 14:14] VITALS: TEMP 97.9
[2021-11-09 15:33] VITALS: O2SAT 97
[2021-11-09 16:01] VITALS: BP 108/68
--- NOTE | 2021-11-09 16:12 | OP ---
Date of Procedure: 11/09/2021 Surgeon: BHAVANA ANDRES Procedures Performed: 1.Selective coronary angiogram with bypass graft study. 2.PCI of severe mid left circumflex stenosis using 3.0 x 24 mm Synergy drug-eluting stent. Access: Right femoral artery 6-German closed with 6-German Angio-Seal. Indication: Chest pain with abnormal stress test. Anesthesia: Total sedation time was 65 minutes. Description Of Procedure: After risks, benefits, and alternatives were explained, the patient agreed to the procedure and signed informed consent. The patient was brought into the cardiac catheterizat ion laboratory, prepped and draped in usual sterile fashion. Then, I accessed the right femoral george ry using micropuncture kit and ultrasound guidance, placed a 6-German Reedley sheath and then took a 6-German JL4 diagnostic catheter into the aortic root, engaged the left main, took standard views, a nd exchanged for a 6-German JR4 catheter, engaged the RCA and the BULLOCK to LAD and the SVG grafts. Th en, I removed the catheter, exchanged for a 6-German XB3.5 guide. Gave systemic heparin to assure AC T level above 250 throughout the procedure and then loaded with Plavix 600 mg and took a short Run-Th rough wire into the left main, left circ and placed the wire distally, and lesion of the mid left cir c was pre-dilated successfully using an NC balloon 3.0 x 50 mm and then placed at 3.0 x 24 mm Synergy drug-eluting stent with good satisfactory results. Final angiogram was satisfactory. Removed the w santana, the guide and the sheath and placed a 6-German Angio-Seal with good hemostasis. Findings: 1.Left main; large, long and normal. 2.Left circumflex; large, dominant with mid to focal severe 90% stenosis, status post successful PCI using 3.0 x 24 mm Synergy drug-eluting stent. The OM branch is free of disease. 3.LAD; proximal CONTRACT SERVICEMAN with patent BULLOCK to LAD. 4.Ramus intermedius; proximal CONTRACT SERVICEMAN without collaterals. 5.RCA; proximal CONTRACT SERVICEMAN without collaterals. Grafts: 1.Patent BULLOCK to LAD. 2.Occluded SVG to ramus. 3.Occluded SVG to RCA. Conclusions: 1.Severe coronary artery disease of the mid left circumflex as above, status post successful PCI. 2.Patent BULLOCK to LAD. 3.CONTRACT SERVICEMAN of RCA proximally without collaterals. Plan: 1.Continue Plavix, aspirin, and statin. 2.Follow up in the office in 4 weeks. If symptoms continue, we will plan for attempt of the RCA CONTRACT SERVICEMAN . SR/MODL Voice ID: [id number] Report ID: [id number]
== END 2021-11-09 16:05 | disposition home or self-care (01) ==
LOC: CCL 11:00
PROVIDERS: ATTEND Internal Medicine
PROC: 027034Z Dilation of Coronary Artery, One Artery with Drug-eluting Intraluminal Device, Percutaneous Approach (ICD-10-PCS; principal; 2021-11-09)
DX: I25.118 Atherosclerotic heart disease of native coronary artery with other forms of angina pectoris (principal); I25.708 Atherosclerosis of coronary artery bypass graft(s), unspecified, with other forms of angina pectoris; I25.82 Chronic total occlusion of coronary artery; I67.9 Cerebrovascular disease, unspecified; I10 Essential (primary) hypertension; E78.5 Hyperlipidemia, unspecified; Z87.891 Personal history of nicotine dependence; Z20.822 Contact with and (suspected) exposure to COVID-19; Z82.49 Family history of ischemic heart disease and other diseases of the circulatory system
CPT/HCPCS: 93459; 92928; U0003; C1893; C1760; C1725; J1644 ×4; J3010; J7040; J2250

== ENCOUNTER 2022-01-19 17:54 | Observation (INO) | payer BC ==
--- OUTSIDE RECORDS SUMMARY | 2022-01-19 17:58 | XMS REPORT | Continuity of Care Document ---
:1970 Author Organization [facility] t Address [address] [place] [address] Care Team Providers Name Role Phone JERI [...] ID 2020-10-31 2020-10-31 Emergency E OMKAR ESQUIVEL [facility] [id number] 18:11:00 20:58:00 CITLALLI Results [...] DIALYSIS PATIENTS. CBC W/PLT COUNT & AUTO [id number] 07:01:00 Test Item Value Reference Range Interpretation [...] PERCENT (BEAKER) (test code = 2801) POCT-GLUCOSE [id number] 09:19:00 Test Item Value Reference Range Interpretation Comments POC-GLUCOSE METER 122 mg/dL 70-[address] [facility] 6720 (BEAKER) (test code = [place] 1538) [address] CALCIUM, [id number] 07:21:00 Test Item Value Reference Range Interpretation Comments CALCIUM IONIZED (BEAKER) (test 0.95 mmol/L 1.12-1.27 L code = 698) PH, BLOOD (BEAKER) (test code = 7.40 1810) Check serum Ionized Calcium level after 4 hours after IV Calcium replacement. [id number] 06:37:00 Test Item Value Reference Range Interpretation Comments MAGNESIUM (BEAKER) (test code = 2.2 mg/dL 1.6-2.6 627) Check Serum Magnesium level 2 hours after IV magnesium replacement.BASIC METABOLIC [id number] 06:37:00 Test Item Value Reference Range Interpretation [...] IV magnesium replacement.CBC W/PLT COUNT & AUTO [id number] 06:18:00 Test Item Value Reference Range Interpretation [...] = 2801) RAD, CHEST, 1 VIEW, NON [id number] 04:00:00Reason for exam:->CTShould this be performed at the bedside?->YesFINAL REPORT CLINICAL INDICATION: Chest tube Comparison: 07/24/2018 The cardiomediastinal contours are stable. The lung volumes remain low. Bilateral parenchymal opacities are unchanged. There is no pneumothorax after left chest tube removal. A mediastinal drain is stable. Signed: Chuy Nunez MDReport Verified Date/Time: 07/25/2018 04:00:33 Reading Location: [address] Reading Room [id number] 06:19:00 Test Item Value Reference Range Interpretation Comments MAGNESIUM (BEAKER) (test code = 2.1 mg/dL 1.6-2.6 627) Check Serum Magnesium level 2 hours after IV magnesium replacement.BASIC METABOLIC [id number] 06:19:00 Test Item Value Reference Range Interpretation [...] level 2 hours after IV magnesium replacement.CALCIUM, [id number] 06:17:00 Test Item Value Reference Range Interpretation Comments CALCIUM IONIZED (BEAKER) (test 0.93 mmol/L 1.12-1.27 L code = 698) PH, BLOOD (BEAKER) (test code = 7.43 1810) Check serum Ionized Calcium level after 4 hours after IV Calcium replacement.CBC W/PLT COUNT & AUTO [id number] 06:03:00 Test Item Value Reference Range Interpretation [...] = 2801) RAD, CHEST, 1 VIEW, NON [id number] 04:17:00Reason for exam:->CTShould this be performed at [...] Grant Verified Date/Time: 07/24/2018 04:17:52 Reading Location: [address] Transitional Reading Room POCT-GLUCOSE METER 2018-07-23 10:40:00 Test Item Value Reference Range Interpretation Comments POC-GLUCOSE METER 159 mg/dL 70-[address] [facility] 6720 (BEAKER) (test code = [place] 1538) [address] POCT-GLUCOSE [id number] 06:00:00 Test Item Value Reference Range Interpretation Comments POC-GLUCOSE METER 111 mg/dL 70-[address] [facility] 6720 (BEAKER) (test code = ELIZABETH Gallego [place] 1538) [address] POCT-GLUCOSE [id number] 06:00:00 Test Item Value Reference Range Interpretation Comments POC-GLUCOSE METER 105 mg/dL 70-[address] [facility] 6720 (BEAKER) (test code = ELIZABETH Gallego [place] 1538) [address] [id number] 04:46:00 Test Item Value Reference Range Interpretation Comments PHOSPHORUS (BEAKER) (test code = 2.5 mg/dL 2.3-4.7 604) [id number] 04:46:00 Test Item Value Reference Range Interpretation Comments MAGNESIUM (BEAKER) (test code = 2.0 mg/dL 1.6-2.6 627) BASIC METABOLIC [id number] 04:46:00 Test Item Value Reference Range Interpretation [...] PATIEN TS. RAD, CHEST, 1 VIEW, NON [id number] 04:43:00Reason for exam:->CTShould this be performed at the bedside?->YesFINAL REPORT CLINICAL INDICATION: Support lines. Comparison: 07/22/2018 The cardiomediastinal contours are stable. The lung volumes remain low. Central pulmonary vascular congestion and bilateral parenchymal opacities are unchanged. There is no pneumothorax. Support lines are stable. Signed: Chuy Nunez MDReport Verified Date/Time: 07/23/2018 04:43:55 Reading Location: [address] Reading Room LACTIC ACID, ARTERIAL, WHOLE [id number] 04:01:00 Test Item Value Reference Range Interpretation [...] (BEAKER) (test code = 413) OXYGEN SATURATION, [id number] 03:50:00 Test Item Value Reference Range Interpretation Comments O2 SATURATION (MEASURED) ([facility]) 57.2 % (test code = 1455) For occult hypoperfusionPOCT-GLUCOSE [id number] 17:59:00 Test Item Value Reference Range Interpretation Comments POC-GLUCOSE METER 100 mg/dL 70-110 TESTED AT [place] [address] ([facility]) (test code = [facility] 1538) [address] HEMOGLOBIN [id number] 12:00:00 Test Item Value Reference Range Interpretation Comments HEMOGLOBIN A1C (BEAKER) (test code = 5.8 % 4.3-6.1 368) POCT-GLUCOSE [id number] 10:51:00 Test Item Value Reference Range Interpretation Comments POC-GLUCOSE METER 107 mg/dL 70-110 TESTED AT [place] [address] ([facility]) (test code = [facility] 1538) [address] POCT-GLUCOSE [id number] 08:35:00 Test Item Value Reference Range Interpretation Comments POC-GLUCOSE METER 124 mg/dL 70-110 H TESTED AT [place] [address] ([facility]) (test code = [facility] 1538) [address] POCT-GLUCOSE [id number] 06:33:00 Test Item Value Reference Range Interpretation Comments POC-GLUCOSE METER 116 mg/dL 70-110 H TESTED AT [place] [address] ([facility]) (test code = [facility] 1538) [address] [id number] 06:26:00 Test Item Value Reference Range Interpretation Comments PHOSPHORUS (BEAKER) (test code = 3.2 mg/dL 2.3-4.7 604) [id number] 06:26:00 Test Item Value Reference Range Interpretation Comments MAGNESIUM (BEAKER) (test code = 2.1 mg/dL 1.6-2.6 627) BASIC METABOLIC [id number] 06:26:00 Test Item Value Reference Range Interpretation [...] code = 413) LACTIC ACID, ARTERIAL, WHOLE [id number] 05:39:00 Test Item Value Reference Range Interpretation Comments LACTATE BLOOD ARTERIAL (2) 1.3 mmol/L 0.5-2.2 (BEAKER) (test code = 2874) Effective 03/24/2016: Units/Reference Range ChangeNew: 0.5-2.2 mmol/L Previous: 5-20 mg/dLOXYGEN SATURATION, [id number] 05:26:00 Test Item Value Reference Range Interpretation Comments O2 SATURATION (MEASURED) ([facility]) 56.3 % (test code = 1455) POCT-GLUCOSE [id number] 04:59:00 Test Item Value Reference Range Interpretation Comments POC-GLUCOSE METER 124 mg/dL 70-110 H TESTED AT [place] [address] ([facility]) (test code = [facility] 1538) [address] RAD, CHEST, 1 VIEW, NON [id number] 03:31:00while patient is intubated or has chest tubes.Reason for exam:->s/p ACBShould this be performed at the bedside?->YesFINAL REPORT CLINICAL INDICATION: Postop Comparison: 07/21/2018 The cardiomediastinal contours are stable. The lung volumes are low but stable after extubation. Bilateral parenchymal opacities are unchanged. There is no pneumothorax. Remaining support lines are stable. Signed: Chuy Nunez MDReport Verified Date/Time: 07/22/2018 03:31:59 Reading Location: [address] Reading Room POCT-GLUCOSE [id number] 02:29:00 Test Item Value Reference Range Interpretation Comments POC-GLUCOSE METER 118 mg/dL 70-110 H TESTED AT [place] [address] ([facility]) (test code = [facility] 1538) [address] BLOOD GAS, [id number] 02:27:00 Test Item Value Reference Range Interpretation [...] code = 1819) 36.0 % OXYGEN SATURATION, [id number] 00:59:00 Test Item Value Reference Range Interpretation Comments O2 SATURATION (MEASURED) (BEAKER) 56.6 % (test code = 1455) BLOOD GAS, [id number] 00:57:00 Test Item Value Reference Range Interpretation [...] (test code = 1819) 40.0 % GLUCOSE-STAT [id number] 00:57:00 Test Item Value Reference Range Interpretation Comments GLUCOSE RANDOM (BEAKER) (test code 131 mg/dL 70-110 H = 652) HGB/HCT (H&H) - STAT [id number] 00:57:00 Test Item Value Reference Range Interpretation Comments HEMOGLOBIN (BEAKER) (test code = 12.9 g/dL 13.0-16.8 L 410) HEMATOCRIT (BEAKER) (test code = 38.0 % 40.0-50.0 L 411) POTASSIUM-STAT [id number] 00:56:00 Test Item Value Reference Range Interpretation Comments POTASSIUM (BEAKER) (test code = 4.1 meq/L 3.6-5.5 379) CALCIUM, [id number] 00:56:00 Test Item Value Reference Range Interpretation Comments CALCIUM IONIZED (BEAKER) (test 1.27 mmol/L 1.12-1.27 code = 698) PH, BLOOD (BEAKER) (test code = 7.39 1810) RAD, CHEST, 1 VIEW, NON [id number] 23:28:00Reason for exam:->s/p ACBShould this be performed [...] Omkar Grant VerifiedDate/Time: 07/21/2018 23:28:57 Reading Location: [address] Transitional Reading Room RAD, CHEST, 1 VIEW, NON [id number] 23:12:00Reason for exam:->hypotensionShould this be performed at the bedside?->YesFINAL REPORT Chest, one view. HISTORY: Hypotension COMPARISON: 07/21/2018 IMPRESSION: No significant change. Supporting hardware unchanged in position. No new or enlarging pleural effusion or pneumothorax. Unchanged patchy interstitial and airspace disease bilaterally. Unchangedenlargement of the cardiomediastinal silhouette. Low lung volumes. Signed: Mian Cooper Verified Date/Time: 07/21/2018 23:12:29 Reading Location: [facility] B1 [id number] Consult Reading Room BLOOD GAS, [id number] 22:44:00 Test Item Value Reference Range Interpretation [...] (test code = 1819) 50.0 % POCT-GLUCOSE [id number] 22:38:00 Test Item Value Reference Range Interpretation Comments POC-GLUCOSE METER 157 mg/dL 70-[address] [facility] 6720 (BEAKER) (test code = ELIZABETH Gallego [place] 1538) [address] POCT-GLUCOSE [id number] 22:38:00 Test Item Value Reference Range Interpretation Comments POC-GLUCOSE METER 142 mg/dL 70-[address] [facility] 6720 (BEAKER) (test code = [place]ZELP[place]O Julián [place] 1538) [address] BLOOD GAS, [id number] 21:18:00 Test Item Value Reference Range Interpretation [...] 1819) 50.0 % HGB/HCT (H&H) - STAT [id number] 21:18:00 Test Item Value Reference Range Interpretation [...] = 3438) Received comment: User comments: Slide comments:[id number] 20:10:00 Test Item Value Reference Range Interpretation Comments FIBRINOGEN LEVEL (BEAKER) (test 225 mg/dl 225-434 code = 658) [id number] 20:09:00 Test Item Value Reference Range Interpretation Comments MAGNESIUM (BEAKER) 1.8 mg/dL 1.6-2.6 Specimen slightly (test code = 627) hemolyzed [id number] 20:09:00 Test Item Value Reference Range Interpretation Comments PHOSPHORUS (BEAKER) 2.9 mg/dL 2.3-4.7 Specimen slightly (test code = 604) hemolyzed [id number] 20:09:00 Test Item Value Reference Range Interpretation Comments POTASSIUM (BEAKER) 3.9 meq/L 3.5-5.1 Specimen slightly (test code = 379) hemolyzed [id number] 20:09:00 Test Item Value Reference Range Interpretation Comments SODIUM (BEAKER) (test code = 381) 139 meq/L 136-145 [id number] 20:09:00 Test Item Value Reference Range Interpretation Comments GLUCOSE RANDOM (BEAKER) (test code 174 mg/dL 70-105 H = 652) BASIC METABOLIC [id number] 20:09:00 Test Item Value Reference Range Interpretation [...] NOT APPLICABLE FOR DIALYSIS PATIEN TS. PROTHROMBIN [id number] 20:09:00 Test Item Value Reference Range Interpretation Comments PROTIME (BEAKER) (test code = 17.7 seconds 11.7-14.7 H 759) INR (BEAKER) (test code = 370) 1.5 <=5.9 RECOMMENDED COUMADIN/WARFARIN INR THERAPY RANGESSTANDARD DOSE: 2.0 - 3.0 Includes: PROPHYLAXIS forvenous thrombosis, systemic embolization; TREATMENT for venous thrombosis and/or pulmonary embolus.HIGH RISK: Target INR is 2.5-3.5 for patients with mechanical heart valves.[id number] 20:09:00 Test Item Value Reference Range Interpretation Comments PARTIAL THROMBOPLASTIN TIME 28.8 seconds 22.5-36.0 (BEAKER) (test code = 760) LACTIC ACID, ARTERIAL, WHOLE [id number] 20:05:00 Test Item Value Reference Range Interpretation Comments LACTATE BLOOD 3.6 mmol/L 0.5-2.2 H Specimen sligh tly ARTERIAL (2) (BEAKER) hemoly zed (test code = 2874) Effective 03/24/2016: Units/Reference Range ChangeNew: 0.5-2.2 mmol/L Previous: 5-20 mg/dLOXYGEN SATURATION, [id number] 19:54:00 Test Item Value Reference Range Interpretation Comments O2 SATURATION (MEASURED) (BEAKER) 60.3 % (test code = 1455) CBC W/PLT COUNT & AUTO [id number] 19:51:00 Test Item Value Reference Range Interpretation [...] PERCENT (BEAKER) (test code = 2801) CALCIUM, [id number] 19:50:00 Test Item Value Reference Range Interpretation Comments CALCIUM IONIZED (BEAKER) (test 1.06 mmol/L 1.12-1.27 L code = 698) PH, BLOOD (BEAKER) (test code = 7.32 1810) GLUCOSE-STAT [id number] 19:50:00 Test Item Value Reference Range Interpretation Comments GLUCOSE RANDOM (BEAKER) (test code 178 mg/dL 70-110 H = 652) HGB/HCT (H&H) - STAT [id number] 19:50:00 Test Item Value Reference Range Interpretation Comments HEMOGLOBIN (BEAKER) (test code = 13.3 GM/DL 13.0-16.8 410) HEMATOCRIT (BEAKER) (test code = 39.0 % 40.0-50.0 L 411) BLOOD GAS, [id number] 19:50:00 Test Item Value Reference Range Interpretation [...] code = 1819) 60.0 % SODIUM NA-STAT [id number] 19:49:00 Test Item Value Reference Range Interpretation Comments SODIUM (BEAKER) (test code = 381) 137 meq/L 135-148 POTASSIUM-STAT [id number] 19:49:00 Test Item Value Reference Range Interpretation Comments POTASSIUM (BEAKER) (test code = 3.8 meq/L 3.6-5.5 379) HEMOGLOBIN-STAT [id number] 19:49:00 Test Item Value Reference Range Interpretation Comments HEMOGLOBIN (BEAKER) (test code = 13.3 g/dL 13.0-16.8 410) BLOOD GAS, [id number] 18:43:00 Test Item Value Reference Range Interpretation [...] (test code = 1819) 100.0 % GLUCOSE-STAT [id number] 18:43:00 Test Item Value Reference Range Interpretation Comments GLUCOSE RANDOM (BEAKER) (test code 165 mg/dL 70-110 H = 652) HGB/HCT (H&H) - STAT [id number] 18:43:00 Test Item Value Reference Range Interpretation Comments HEMOGLOBIN (BEAKER) (test code = 12.1 g/dL 13.0-16.8 L 410) HEMATOCRIT (BEAKER) (test code = 36.0 % 40.0-50.0 L 411) CALCIUM, [id number] 18:43:00 Test Item Value Reference Range Interpretation Comments CALCIUM IONIZED (BEAKER) (test 1.12 mmol/L 1.12-1.27 code = 698) PH, BLOOD (BEAKER) (test code = 7.41 1810) SODIUM NA-STAT [id number] 18:42:00 Test Item Value Reference Range Interpretation Comments SODIUM (BEAKER) (test code = 381) 136 meq/L 135-148 POTASSIUM-STAT [id number] 18:42:00 Test Item Value Reference Range Interpretation Comments POTASSIUM (BEAKER) (test code = 4.0 meq/L 3.6-5.5 379) [id number] 18:37:00 Test Item Value Reference Range Interpretation Comments ACTIVATED CLOTTING TIME 103 sec TEST ED AT [place] [address] ([facility]) (test code = [place] [address]) [address] [id number] 18:37:00 Test Item Value Reference Range Interpretation Comments ACTIVATED CLOTTING TIME 378 sec TEST ED AT [place] [address] ([facility]) (test code = [place] 441) [address] [id number] 18:37:00 Test Item Value Reference Range Interpretation Comments ACTIVATED CLOTTING TIME 439 sec TEST ED AT [place] [address] ([facility]) (test code = [place] [address]) [address] [id number] 18:37:00 Test Item Value Reference Range Interpretation Comments ACTIVATED CLOTTING TIME 483 sec TEST ED AT [place] [address] ([facility]) (test code = ELIZABETH Gallego [place] 441) [address] [id number] 18:37:00 Test Item Value Reference Range Interpretation Comments ACTIVATED CLOTTING TIME 439 sec TEST ED AT [place] [address] ([facility]) (test code = [place] 441) [address] [id number] 18:37:00 Test Item Value Reference Range Interpretation Comments ACTIVATED CLOTTING TIME 510 sec TEST ED AT [place] [address] ([facility]) (test code = ELIZABETH Gallego [facility] 441) [address] [id number] 18:37:00 Test Item Value Reference Range Interpretation Comments ACTIVATED CLOTTING TIME 444 sec TEST ED AT [place] [address] ([facility]) (test code = ELIZABETH Gallego [place] [address]) [address] THROMBOELASTOGRAPH ([id number])[id number] 18:35:00 Test Item Value Reference Range Interpretation Comments TEG ACTIVATED CLOTTING TIME 5.6 minutes 4.0-7.0 ([facility]) (test code = 1407) TEG FIBRINOGEN ACTIVITY (BEAKER) 63.7 degrees 61.0-73.0 (test code = 1408) TEG PLT. AGGREGATION (BEAKER) 57.1 MM 55.0-65.0 (test code = 1409) TGH ACTIVATED CLOTTING TIME 5.4 minutes 4.0-7.0 (AKER) (test code = 1411) TGH FIBRINOGEN ACTIVITY (BEAKER) 60.6 degrees 61.0-73.0 L (test code = 1412) TGH PLT. AGGREGATION (BEAKER) 53.4 MM 55.0-65.0 L (test code = 1413) PROTHROMBIN [id number] 18:10:00 Test Item Value Reference Range Interpretation Comments PROTIME (BEAKER) (test code = 21.1 seconds 11.7-14.7 H 759) INR (BEAKER) (test code = 370) 1.8 <=5.9 RECOMMENDED COUMADIN/WARFARIN INR THERAPY RANGESSTANDARD DOSE: 2.0 - 3.0 Includes: PROPHYLAXIS forvenous thrombosis, systemic embolization; TREATMENT for venous thrombosis and/or pulmonary embolus.HIGH RISK: Target INR is 2.5-3.5 for patients with mechanical heart valves.[id number] 18:10:00 Test Item Value Reference Range Interpretation Comments PARTIAL THROMBOPLASTIN TIME 29.8 seconds 22.5-36.0 (BEAKER) (test code = 760) [id number] 18:10:00 Test Item Value Reference Range Interpretation Comments FIBRINOGEN LEVEL (BEAKER) (test 175 mg/dl 225-434 L code = 658) PLATELET [id number] 18:01:00 Test Item Value Reference Range Interpretation Comments PLATELET COUNT (BEAKER) (test code 93 K/CU MM 150-450 L = 756) CALCIUM, [id number] 17:54:00 Test Item Value Reference Range Interpretation Comments CALCIUM IONIZED (BEAKER) (test 0.90 mmol/L 1.12-1.27 L code = 698) PH, BLOOD (BEAKER) (test code = 7.39 1810) BLOOD GAS, [id number] 17:54:00 Test Item Value Reference Range Interpretation [...] (test code = 1819) 100.0 % GLUCOSE-STAT [id number] 17:53:00 Test Item Value Reference Range Interpretation Comments GLUCOSE RANDOM (BEAKER) (test code 182 mg/dL 70-110 H = 652) HGB/HCT (H&H) - STAT [id number] 17:53:00 Test Item Value Reference Range Interpretation Comments HEMOGLOBIN (BEAKER) (test code = 10.1 g/dL 13.0-16.8 L 410) HEMATOCRIT (BEAKER) (test code = 30.0 % 40.0-50.0 L 411) SODIUM NA-STAT [id number] 17:52:00 Test Item Value Reference Range Interpretation Comments SODIUM (BEAKER) (test code = 381) 137 meq/L 135-148 POTASSIUM-STAT [id number] 17:52:00 Test Item Value Reference Range Interpretation Comments POTASSIUM (BEAKER) (test code = 4.6 meq/L 3.6-5.5 379) BLOOD GAS, [id number] 17:23:00 Test Item Value Reference Range Interpretation [...] (test code = 1819) 70.0 % GLUCOSE-STAT [id number] 17:23:00 Test Item Value Reference Range Interpretation Comments GLUCOSE RANDOM (BEAKER) (test code 200 mg/dL 70-110 H = 652) HGB/HCT (H&H) - STAT [id number] 17:23:00 Test Item Value Reference Range Interpretation Comments HEMOGLOBIN (BEAKER) (test code = 10.4 g/dL 13.0-16.8 L 410) HEMATOCRIT (BEAKER) (test code = 31.0 % 40.0-50.0 L 411) SODIUM NA-STAT [id number] 17:22:00 Test Item Value Reference Range Interpretation Comments SODIUM (BEAKER) (test code = 381) 138 meq/L 135-148 POTASSIUM-STAT [id number] 17:22:00 Test Item Value Reference Range Interpretation Comments POTASSIUM (BEAKER) (test code = 5.3 meq/L 3.6-5.5 379) BLOOD GAS, [id number] 16:32:00 Test Item Value Reference Range Interpretation [...] code = 1819) 70.0 % SODIUM NA-STAT [id number] 16:32:00 Test Item Value Reference Range Interpretation Comments SODIUM (BEAKER) (test code = 381) 134 meq/L 135-148 L POTASSIUM-STAT [id number] 16:32:00 Test Item Value Reference Range Interpretation Comments POTASSIUM (BEAKER) (test code = 6.3 meq/L 3.6-5.5 HH 379) GLUCOSE-STAT [id number] 16:32:00 Test Item Value Reference Range Interpretation Comments GLUCOSE RANDOM (BEAKER) (test code 228 mg/dL 70-110 H = 652) HGB/HCT (H&H) - STAT [id number] 16:32:00 Test Item Value Reference Range Interpretation Comments HEMOGLOBIN (BEAKER) (test code = 10.6 g/dL 13.0-16.8 L 410) HEMATOCRIT (BEAKER) (test code = 31.0 % 40.0-50.0 L 411) BLOOD GAS, [id number] 16:01:00 Test Item Value Reference Range Interpretation [...] code = 1819) 65.0 % SODIUM NA-STAT [id number] 16:01:00 Test Item Value Reference Range Interpretation Comments SODIUM (BEAKER) (test code = 381) 130 meq/L 135-148 L GLUCOSE-STAT [id number] 16:01:00 Test Item Value Reference Range Interpretation Comments GLUCOSE RANDOM (BEAKER) (test code 253 mg/dL 70-110 H = 652) HGB/HCT (H&H) - STAT [id number] 16:01:00 Test Item Value Reference Range Interpretation Comments HEMOGLOBIN (BEAKER) (test code = 10.7 g/dL 13.0-16.8 L 410) HEMATOCRIT (BEAKER) (test code = 31.0 % 40.0-50.0 L 411) POTASSIUM-STAT [id number] 16:01:00 Test Item Value Reference Range Interpretation Comments POTASSIUM (BEAKER) (test code = 6.3 meq/L 3.6-5.5 HH 379) BLOOD GAS, [id number] 15:31:00 Test Item Value Reference Range Interpretation [...] code = 1819) 65.0 % SODIUM NA-STAT [id number] 15:31:00 Test Item Value Reference Range Interpretation Comments SODIUM (BEAKER) (test code = 381) 127 meq/L 135-148 L POTASSIUM-STAT [id number] 15:31:00 Test Item Value Reference Range Interpretation Comments POTASSIUM (BEAKER) (test code = 6.7 meq/L 3.6-5.5 HH 379) GLUCOSE-STAT [id number] 15:31:00 Test Item Value Reference Range Interpretation Comments GLUCOSE RANDOM (BEAKER) (test code 239 mg/dL 70-110 H = 652) HGB/HCT (H&H) - STAT [id number] 15:31:00 Test Item Value Reference Range Interpretation Comments HEMOGLOBIN (BEAKER) (test code = 11.2 g/dL 13.0-16.8 L 410) HEMATOCRIT (BEAKER) (test code = 33.0 % 40.0-50.0 L 411) BLOOD GAS, [id number] 15:04:00 Test Item Value Reference Range Interpretation [...] code = 1819) 80.0 % SODIUM NA-STAT [id number] 15:04:00 Test Item Value Reference Range Interpretation Comments SODIUM (BEAKER) (test code = 381) 125 meq/L 135-148 L POTASSIUM-STAT [id number] 15:04:00 Test Item Value Reference Range Interpretation Comments POTASSIUM (BEAKER) (test code = 6.2 meq/L 3.6-5.5 HH 379) GLUCOSE-STAT [id number] 15:04:00 Test Item Value Reference Range Interpretation Comments GLUCOSE RANDOM (BEAKER) (test code 220 mg/dL 70-110 H = 652) HGB/HCT (H&H) - STAT [id number] 15:04:00 Test Item Value Reference Range Interpretation Comments HEMOGLOBIN (BEAKER) (test code = 10.6 g/dL 13.0-16.8 L 410) HEMATOCRIT (BEAKER) (test code = 31.0 % 40.0-50.0 L 411) BLOOD GAS, [id number] 13:03:00 Test Item Value Reference Range Interpretation [...] (test code = 1819) 100.0 % GLUCOSE-STAT [id number] 13:03:00 Test Item Value Reference Range Interpretation Comments GLUCOSE RANDOM (BEAKER) (test code 139 mg/dL 70-110 H = 652) SODIUM NA-STAT [id number] 13:02:00 Test Item Value Reference Range Interpretation Comments SODIUM (BEAKER) (test code = 381) 136 meq/L 135-148 POTASSIUM-STAT [id number] 13:02:00 Test Item Value Reference Range Interpretation Comments POTASSIUM (BEAKER) (test code = 4.1 meq/L 3.6-5.5 379) HGB/HCT (H&H) - STAT [id number] 13:02:00 Test Item Value Reference Range Interpretation Comments HEMOGLOBIN (BEAKER) (test code = 14.8 g/dL 13.0-16.8 410) HEMATOCRIT (BEAKER) (test code = 44.0 % 40.0-50.0 411) HEMOGLOBIN [id number] 11:07:00 Test Item Value Reference Range Interpretation Comments HEMOGLOBIN A1C (BEAKER) (test code = 5.5 % 4.3-6.1 368) RAD, CHEST, 1 VIEW, NON [id number] 22:39:00Reason for exam:->Pre opShould this be performed at the bedside?->YesFINAL REPORT Chest, one view HISTORY: Pre-op COMPARISON: None. DISCUSSION: Lungs are clear without focal consolidation. Cardiomediastinal silhouette is unremarkable. No acute osseous abnormality. No pleural effusion or pneumothorax. Visualized portions of the upper abdomen are unremarkable. IMPRESSION: No acute cardiopulmonary abnormality. Signed: Mian Cooper MDReport Verified Date/Time: 07/20/2018 22:39:30 Reading Location: [address] Consult Reading Room [facility] 2018-07-20 22:02:00 Test Item Value Reference Range Interpretation Comments THYROID STIMULATING HORMONE 1.71 uIU/mL 0.35-4.94 (BEAKER) (test code = 772) [id number] 21:44:00 Test Item Value Reference Range Interpretation Comments MAGNESIUM (BEAKER) (test code = 2.6 mg/dL 1.6-2.6 627) COMPREHENSIVE METABOLIC [id number] 21:44:00 Test Item Value Reference Range Interpretation [...] NOT APPLICABLE FOR DIALYSIS PATIEN TS. LIPID [id number] 21:44:00 Test Item Value Reference Range Interpretation [...] 100-129 Borderline 130-159 High 160-189 Very High [id number] 21:42:00 Test Item Value Reference Range Interpretation Comments PARTIAL THROMBOPLASTIN TIME 29.6 seconds 22.5-36.0 (BEAKER) (test code = 760) PROTHROMBIN [id number] 21:41:00 Test Item Value Reference Range Interpretation Comments PROTIME (BEAKER) (test code = 14.6 seconds 11.7-14.7 759) INR (BEAKER) (test code = 370) 1.1 <=5.9 RECOMMENDED COUMADIN/WARFARIN INR THERAPY RANGESSTANDARD DOSE: 2.0 - 3.0 Includes: PROPHYLAXIS forvenous thrombosis, systemic embolization; TREATMENT for venous thrombosis and/or pulmonary embolus.HIGH RISK: Target INR is 2.5-3.5 for patients with mechanical heart valves.URINALYSIS W/ [id number] 21:36:00 Test Item Value Reference Range Interpretation [...] = 2795) CBC W/PLT COUNT & AUTO [id number] 21:30:00 Test Item Value Reference Range Interpretation [...] % 0-1 PERCENT (BEAKER) (test code = 2331)
[2022-01-19 18:44] LABS: Absolute Lymphocytes (CBC) 1.7 K/uL (0.7-4.9); Hematocrit 43.3 % (39.6-49.0); Lymphocytes % 31.3 % (15.3-44.8); MPV 8.7 fL (7.6-11.3); Protime INR 1.03; RBC Red Blood Cell Count 4.99 M/uL (4.33-5.43)
[2022-01-19 18:59] LABS: Albumin 4.6 g/dL (3.4-5.0); Bilirubin Direct 0.1 mg/dL (0-0.2); Bilirubin Total 0.7 mg/dL (0.2-1.0); Magnesium 2.2 mg/dL (1.8-2.4); Potassium 4.1 mmol/L (3.5-5.1); Protein, Total 8.1 g/dL (6.4-8.2)
[2022-01-19 19:01] LABS: Troponin High Sensitivity 5.2 pg/mL (<58.9)
[2022-01-19] MEDS ORDERED: ASPIRIN 81 MG CHEWABLE TABLET ONE (19:08)
[2022-01-19] MEDS ORDERED: MORPHINE 4 MG/ML SYR ONE (19:09)
[2022-01-19] MEDS ORDERED: ONDANSETRON 4 MG/2 ML VIAL ONE (19:09)
--- NOTE | 2022-01-19 19:13 | RAD REPORT ---
EXAM DESCRIPTION: Derrek Single View3 7:06 pm CLINICAL HISTORY: Chest pain COMPARISON: 2020 FINDINGS: The lungs appear clear of acute infiltrate. The heart is normal size. Postsurgical change s involve the chest IMPRESSION: No acute abnormalities displayed
--- NOTE | 2022-01-19 19:26 | ER ---
Nurse's Notes [facility] Name: Steven Morilol Age: 51 yrs Sex: Male : 1970 Arrival Date: 01/19/2022 Time: 18:02 Bed 14 Private MD: Diagnosis: Chest pain, unspecified Presentation: 01/19 18:17 Chief complaint: Patient states: Midsternal CP x 2 hours. Coronavirus screen: At this jl7 time, the client does not indicate any symptoms associated with coronavirus-19. Ebola Screen: No symptoms or risks identified at this time. Initial Sepsis Screen: Does the patient meet any 2 criteria? No. Patient's initial sepsis screen is negative. Does the patient have a suspected source of infection? No. Patient's initial sepsis screen is negative. Risk Assessment: Do you want to hurt yourself or someone else? Patient reports no desire to harm self or others. Onset of symptoms was January 19, 2022 at 16:00. 18:17 Method Of Arrival: Ambulatory jl7 18:17 Acuity: TIFFANIE 2 jl7 Triage Assessment: 18:18 General: Appears in no apparent distress. uncomfortable, Behavior is calm, cooperative, jl7 appropriate for age. Pain: Complains of pain in chest. Cardiovascular: Patient's skin is warm and dry. Historical: - Allergies: 18:18 No Known Allergies; jl7 - Home Meds: 18:18 Lipitor 80 mg Oral tab 1 tab once daily [Active]; metoprolol tartrate 25 mg Oral tab 1 jl7 tab once daily [Active]; - PMHx: 18:18 CAD; Hyperlipidemia; Hypertension; cardiac stent x2; jl7 - PSHx: 18:18 Coronary artery bypass graft; elbow surgery; hernia; shoulder surgery; jl7 - Immunization history:: Client reports having NOT received the Covid vaccine. - Social history:: Smoking status: Patient denies any tobacco usage or history of. Screenin:26 Abuse screen: Denies threats or abuse. Denies injuries from another. Nutritional eo2 screening: No deficits noted. Tuberculosis screening: No symptoms or risk factors identified. Fall Risk None identified. Assessment: 18:26 General: Appears in no apparent distress. comfortable, Behavior is calm, cooperative. eo2 Pain: Complains of pain in chest Pain does not radiate. Pain began 2 hours ago. Neuro: No deficits noted. Level of Consciousness is awake, alert, obeys commands, Oriented to person, place, time, situation, Denies weakness dizziness, headache. Cardiovascular: Reports chest pain, "dull" Heart tones S1 S2 Capillary refill < 3 seconds JVD is absent Patient's skin is warm and dry. Respiratory: Airway is patent Trachea midline Respiratory effort is even, unlabored, Respiratory pattern is regular, symmetrical, Breath sounds are clear bilaterally. Denies shortness of breath. GI: No deficits noted. No signs and/or symptoms were reported involving the gastrointestinal system. Patient currently denies diarrhea, nausea, vomiting. : No deficits noted. No signs and/or symptoms were reported regarding the genitourinary system. 19:20 General: Appears in no apparent distress. comfortable, Behavior is calm, cooperative, tk1 appropriate for age. Pain: Complains of pain in chest Pain does not radiate. Pain currently is 6 out of 10 on a pain scale. Quality of pain is described as dull, Pain began 4 hours ago. Neuro: No deficits noted. Level of Consciousness is awake, alert, obeys commands, Oriented to person, place, time, situation, Appropriate for age Global Position System Technician are equal bilaterally Moves all extremities. Gait is steady, Speech is normal, Facial symmetry appears normal, Denies weakness dizziness, headache. Cardiovascular: Reports chest pain, Heart tones S1 S2 Capillary refill < 3 seconds is brisk in bilateral fingers Clubbing of nail beds is absent JVD is absent Patient's skin is warm and dry. Respiratory: Airway is patent Trachea midline Respiratory effort is even, unlabored, Respiratory pattern is regular, symmetrical, Breath sounds are clear bilaterally. GI: No deficits noted. No signs and/or symptoms were reported involving the gastrointestinal system. : No deficits noted. No signs and/or symptoms were reported regarding the genitourinary system. EENT: No deficits noted. No signs and/or symptoms were reported regarding the EENT system. Derm: No deficits noted. No signs and/or symptoms reported regarding the dermatologic system. Musculoskeletal: No deficits noted. No signs and/or symptoms reported regarding the musculoskeletal system. 20:14 Reassessment: No changes from previously documented assessment. Patient and/or family tk1 updated on plan of care and expected duration. Pain level reassessed. Patient is alert, oriented x 3, equal unlabored respirations, skin warm/dry/pink. Pain: Complains of pain in chest Pain does not radiate. Pain currently is 2 out of 10 on a pain scale. Quality of pain is described as dull. Vital Signs: 18:17 BP 144 / 95; Pulse 75; Resp 17; Temp 98; Pulse Ox 98% ; Weight 97.52 kg; Height 5 ft. jl7 11 in. (180.34 cm); 18:26 BP 144 / 95; Pulse 74; Resp 15; Pulse Ox 99% ; Pain 6/10; eo2 19:20 BP 133 / 90 LA Supine (auto/reg); Pulse 82; Resp 18; Temp 98.2(O); Pulse Ox 100% on tk1 R/A; Pain 6/10; 19:47 Pain 2/10; tk1 20:14 BP 124 / 95 LA Supine (auto/reg); Pulse 71 MON; Resp 16 S; Pulse Ox 99% on R/A; Pain tk1 2/10; 18:17 Body Mass Index 29.99 (97.52 kg, 180.34 cm) jl7 Vitals: 18:26 Cardiac Rhythm Assessment Regular Sinus rhythm. eo2 19:20 Cardiac Rhythm Assessment Regular Sinus rhythm. tk1 ED Course: 18:02 Patient arrived in ED. ds1 18:17 Wicho Sheridan, CHIRAG is Primary Nurse. jl7 18:18 Hai Stover PA is PHCP. cp 18:18 Shellie Dugan MD is Attending Physician. cp 18:18 Triage completed. jl7 18:18 Arm band placed on right wrist. jl7 18:26 Ailyn Miller, CHIRAG is Primary Nurse. eo2 18:26 Patient has correct armband on for positive identification. school lunch monitor on. Pulse eo2 ox on. NIBP on. Door closed. Noise minimized. Warm blanket given. 18:26 No provider procedures requiring assistance completed. Inserted saline lock: 22 gauge eo2 in right antecubital area, using aseptic technique. Blood collected. Patient maintains SpO2 saturation greater than 95% on room air. 19:06 XRAY Chest (1 view) In Process Unspecified. EDMS 19:07 COVID-19 SARS RT PCR (Document "Date of Onset" if Symptomatic) Sent. tk1 19:18 COVID-19 SARS RT PCR (Document "Date of Onset" if Symptomatic) Sent. tk1 19:20 Bed in low position. Call light in reach. Side rails up X2. Adult w/ patient. Patient tk1 has correct armband on for positive identification. school lunch monitor on. Pulse ox on. NIBP on. Lights dimmed. 19:20 IV is patent, is intact, with fluids infusing freely, with good blood return. tk1 19:25 Perez Ramírez MD is Hospitalizing Provider. cp 21:00 Report given to CHIRAG Rodriguez. tk1 Administered Medications: 18:23 CANCELLED (Physician Discretion): Nitroglycerin 0.4 mg Sublingual once cp 19:15 Drug: morphine 4 mg Route: IVP; Rate: 2 mg/min; Infused Over: 2 mins; Site: right tk1 antecubital; 19:47 Follow up: Pain 2/10 Adult; Response: Pain is decreased; RASS: Alert and Calm (0) tk1 19:18 Drug: Zofran (Ondansetron) 4 mg Route: IVP; Rate: 2 mg/min; Infused Over: 2 mins; Site: tk1 right antecubital; 19:47 Follow up: Response: No adverse reaction tk1 19:19 Drug: Aspirin Chewable Tablet 162 mg Route: PO; tk1 19:46 Follow up: Response: No adverse reaction tk1 19:46 Drug: Ativan (LORazepam) 1 mg Route: IVP; Rate: 0.5 mg/min; Infused Over: 2 mins; Site: tk1 right antecubital; 20:13 Follow up: Response: Anxiety decreased tk1 Outcome: 19:25 Decision to Hospitalize by Provider. cp 20:45 Admitted to Med/surg accompanied by tech, via wheelchair, room 206, with chart, Report tk1 called to CHIRAG Rodriguez 20:45 Condition: stable 20:45 Instructed on the need for admit. 21:29 Patient left the ED. tk1 Signatures: Dispatcher [employer] EDLA Radha Ruiz Corey, PA PA Wicho Colby, RN RN jl7 Ailyn Miller RN RN eo2 Francy Villalobos tk1
--- NOTE | 2022-01-19 19:26 | EDPHYS ---
Physician Documentation [facility] Name: Steven Morillo Age: 51 yrs Sex: Male : 1970 Arrival Date: 01/19/2022 Time: 18:02 Bed 14 Private MD: ED Physician Shellie Dugan HPI: 01/19 18:25 This 51 yrs old Male presents to ER via Ambulatory with complaints of Chest Pain. cp 18:25 The patient or guardian reports chest pain that is located primarily in the anterior cp chest wall. 18:25 Onset: 2 hour(s) ago. cp 18:25 The pain does not radiate. Associated signs and symptoms: Pertinent negatives: cp abdominal pain, cough, diaphoresis, lower extremity pain, lower extremity swelling, shortness of breath, syncope, vomiting. The chest pain is described as constant and similar to cardiac pain in the past. Duration: The patient or guardian reports a single episode, that is still ongoing, and unchanged. Historical: - Allergies: 18:18 No Known Allergies; jl7 - Home Meds: 18:18 Lipitor 80 mg Oral tab 1 tab once daily [Active]; metoprolol tartrate 25 mg Oral tab 1 jl7 tab once daily [Active]; - PMHx: 18:18 CAD; Hyperlipidemia; Hypertension; cardiac stent x2; jl7 - PSHx: 18:18 Coronary artery bypass graft; elbow surgery; hernia; shoulder surgery; jl7 - Immunization history:: Client reports having NOT received the Covid vaccine. - Social history:: Smoking status: Patient denies any tobacco usage or history of. ROS: 18:27 Constitutional: Negative for body aches, chills, fever, poor PO intake. cp 18:27 Cardiovascular: Positive for chest pain, Negative for edema, palpitations. cp 18:27 Respiratory: Negative for cough, shortness of breath, wheezing. 18:27 Abdomen/GI: Negative for abdominal pain, vomiting, diarrhea, constipation. cp 18:27 Eyes: Negative for injury, pain, redness, and discharge. cp 18:27 ENT: Negative for drainage from ear(s), ear pain, sore throat, difficulty swallowing, difficulty handling secretions. 18:27 Back: Negative for pain at rest, pain with movement. 18:27 Neuro: Negative for altered mental status, dizziness, headache, numbness, syncope, weakness. 18:27 All other systems are negative. Exam: 18:15 ECG was reviewed by the Attending Physician. cp 18:30 Constitutional: The patient appears in no acute distress, alert, awake, cp non-diaphoretic, non-toxic, well developed, well nourished. 18:30 Head/Face: Normocephalic, atraumatic. cp 18:30 Eyes: Periorbital structures: appear normal, Conjunctiva: normal, no exudate, no injection, Sclera: no appreciated abnormality, Lids and lashes: appear normal, bilaterally. 18:30 ENT: External ear(s): are unremarkable, Nose: is normal, Mouth: Lips: moist, Oral mucosa: moist, Posterior pharynx: Airway: no evidence of obstruction, patent. 18:30 Neck: ROM/movement: is normal, is supple, without pain, no range of motions limitations. 18:30 Chest/axilla: Inspection: normal. 18:30 Cardiovascular: Rate: normal, Rhythm: regular, Edema: is not appreciated, JVD: is not appreciated. 18:30 Respiratory: the patient does not display signs of respiratory distress, Respirations: normal, no use of accessory muscles, no retractions, labored breathing, is not present, Breath sounds: are clear throughout, no decreased breath sounds, no stridor, no wheezing. 18:30 Abdomen/GI: Inspection: abdomen appears normal, Palpation: abdomen is soft and non-tender, in all quadrants. 18:30 Back: pain, is absent, ROM is normal. 18:30 Neuro: Orientation: to person, place \\T\\ time. Mentation: is normal, Motor: moves all fours, strength is normal, Sensation: is normal. Vital Signs: 18:17 BP 144 / 95; Pulse 75; Resp 17; Temp 98; Pulse Ox 98% ; Weight 97.52 kg; Height 5 ft. jl7 11 in. (180.34 cm); 18:26 BP 144 / 95; Pulse 74; Resp 15; Pulse Ox 99% ; Pain 6/10; eo2 19:20 BP 133 / 90 LA Supine (auto/reg); Pulse 82; Resp 18; Temp 98.2(O); Pulse Ox 100% on tk1 R/A; Pain 6/10; 19:47 Pain 2/10; tk1 20:14 BP 124 / 95 LA Supine (auto/reg); Pulse 71 MON; Resp 16 S; Pulse Ox 99% on R/A; Pain tk1 12/31; 18:17 Body Mass Index 29.99 (97.52 kg, 180.34 cm) jl7 MDM: 18:23 Patient medically screened. cp 18:30 Differential diagnosis: abnormal EKG, acute myocardial infarction, cholecystitis, cp Cholelithiasis costochondritis, esophagitis, pericarditis, pleurisy, pneumonia, pneumothorax, stable angina, unstable angina. 19:22 Physician consultation: Anna Viera MD was called at 19:23, was contacted at 19:23, cp regarding patient's condition, requests patient be admitted to services of hospitalist due to him being out of town. 19:25 Data reviewed: vital signs, nurses notes, lab test result(s), EKG, radiologic studies, cp plain films. 19:25 Test interpretation: by ED physician or midlevel provider: ECG, plain radiologic cp studies. Physician consultation: Kenneth De Jesus was called at 19:25, was contacted at 19:25, regarding admission, to the telemetry unit. patient's condition. 01/19 18:22 Order name: Basic Metabolic Panel; Complete Time: 19:15 cp 01/19 18:22 Order name: CBC with Diff; Complete Time: 19:15 cp 01/19 18:22 Order name: LFT's; Complete Time: 19:15 cp 01/19 18:22 Order name: Magnesium; Complete Time: 19:15 cp 01/19 18:22 Order name: NT PRO-BNP; Complete Time: 19:15 cp 01/19 18:22 Order name: PT-INR; Complete Time: 19:15 cp 01/19 18:22 Order name: Troponin HS; Complete Time: 19:15 cp 01/19 19:15 Interpretation: Reviewed. cp 01/19 18:22 Order name: XRAY Chest (1 view); Complete Time: 19:15 cp 01/19 18:52 Order name: COVID-19 SARS RT PCR (Document "Date of Onset" if Symptomatic); Complete la1 Time: 20:25 01/19 18:22 Order name: EKG; Complete Time: 18:23 cp 01/19 18:22 Order name: Cardiac monitoring; Complete Time: 18:30 cp 01/19 18:22 Order name: EKG - Nurse/Tech; Complete Time: 18:30 cp 01/19 18:22 Order name: IV Saline Lock; Complete Time: 18:30 cp 01/19 18:22 Order name: Labs collected and sent; Complete Time: 18:30 cp 01/19 18:22 Order name: O2 Per Protocol; Complete Time: 18:30 cp 01/19 18:22 Order name: O2 Sat Monitoring; Complete Time: 18:30 cp EC:15 Rate is 70 beats/min. Rhythm is regular. ME interval is normal. QRS interval is normal. cp QT interval is normal. T waves are Inverted in lead aVR. Interpreted by me. Reviewed by me. Administered Medications: 18:23 CANCELLED (Physician Discretion): Nitroglycerin 0.4 mg Sublingual once cp 19:15 Drug: morphine 4 mg Route: IVP; Rate: 2 mg/min; Infused Over: 2 mins; Site: right tk1 antecubital; 19:47 Follow up: Pain 2/10 Adult; Response: Pain is decreased; RASS: Alert and Calm (0) tk1 19:18 Drug: Zofran (Ondansetron) 4 mg Route: IVP; Rate: 2 mg/min; Infused Over: 2 mins; Site: tk1 right antecubital; 19:47 Follow up: Response: No adverse reaction tk1 19:19 Drug: Aspirin Chewable Tablet 162 mg Route: PO; tk1 19:46 Follow up: Response: No adverse reaction tk1 19:46 Drug: Ativan (LORazepam) 1 mg Route: IVP; Rate: 0.5 mg/min; Infused Over: 2 mins; Site: tk1 right antecubital; 20:13 Follow up: Response: Anxiety decreased tk1 Disposition: 19:30 Chart complete. cp Disposition Summary: 01/19/22 19:25 Hospitalization Ordered Hospitalization Status: Observation cp Provider: Perez Ramírez cp Location: Telemetry/MedSurg (observation) cp Condition: Stable cp Problem: new cp Symptoms: have improved cp Bed/Room Type: Standard cp Room Assignment: 206(01/19/22 20:27) mw Diagnosis - Chest pain, unspecified cp Forms: - Medication Reconciliation Form cp - SBAR form cp Signatures: Dispatcher [employer] JOVANYMD Dianelys Gerardo RN RN mw Kenneth De Jesus, SCHOOL PSYCHOMETRIST-C SCHOOL PSYCHOMETRIST-Cla1 Hai Stover PA PA cp Leal, Jahala RN RN jl7 Francy Villalobos tk1 Corrections: (The following items were deleted from the chart) 18:23 18:22 Nitroglycerin 0.4 mg Sublingual once ordered. cp cp 20:27 19:25 cp mw
[2022-01-19] MEDS ORDERED: LORazepam 2 MG/ML VIAL ONE (19:36)
--- NOTE | 2022-01-19 19:53 | P.HP ---
Certification for Inpatient Patient admitted to: Observation With expected LOS: <2 Midnights Patient will require the following post-hospital care: None Practitioner: I am a practitioner with admitting privileges, knowledge of patient current condition, hospital course, and medical plan of care. Services: Services provided to patient in accordance with Admission requirements found in Title 42 Section 412.3 of the Code of Federal Regulations Patient History Date of Service: 01/19/22 Primary Care Provider: Dr. King- out of town Reason for admission: Chest pain History of Present Illness: 51-year-old male with history of CAD status post CABG, hypertension, hyperlipidemia presents the emerge department for chest pain. Patient reports he was at work walking when he developed a dull pressure-like chest pain nonradiating without any associated signs or symptoms. Patient reports that the pain lasted for 1 to 2 hours still having mild symptoms at this time. Patient was evaluated in the emergency department his labs within normal limits EKG, chest x-ray and unremarkable. Patient last had heart catheterization in October of last year with stent placement at that time. November 09, 2021 patient had PCI of the left mid circumflex. Will admit under observation for ACS rule out. Allergies No Known Allergies Allergy (Verified 11/05/21 12:01) Home Medications: Atorvastatin Calcium [Lipitor] 80 mg PO BEDTIME 07/19/18 Aspirin 81 mg PO DAILY 11/01/21 Metoprolol Tartrate [Lopressor*] 25 mg PO BID 11/01/21 lisinopriL [Lisinopril] 10 mg PO DAILY 11/01/21 - Past Medical/Surgical History Diabetic: No -: HTN -: high cholesterol -: CAD S/P CABG -: shoulder -: hernia repair -: right elbow -: CABG 2018 4 vessel - Family History Father -: Heart disease, Hypertension - Social History Alcohol use: Yes CD- Drugs: No Caffeine use: Yes Place of Residence: Home Review of Systems 10-point ROS is otherwise unremarkable Cardiovascular: Chest Pain, As per HPI Physical Examination - Physical Exam General: Alert, In no apparent distress HEENT: Atraumatic, PERRLA, Mucous membr. moist/pink, EOMI, Sclerae nonicteric Neck: Supple, 2+ carotid pulse no bruit, No LAD, Without JVD or thyroid abnormality Respiratory: Clear to auscultation bilaterally, Normal air movement Cardiovascular: Regular rate/rhythm, Normal S1 S2 Gastrointestinal: Normal bowel sounds, No tenderness Musculoskeletal: No tenderness Integumentary: No rashes Neurological: Normal gait, Normal speech, Normal strength at 5/5 x4 extr, Normal tone, Normal affect Lymphatics: No axilla or inguinal lymphadenopathy - Studies Laboratory Data (last 24 hrs) 01/19/22 18:30: PT 11.8, INR 1.03 01/19/22 18:30: WBC 5.40, Hgb 14.8, Hct 43.3, Plt Count 211 01/19/22 18:30: Sodium 137, Potassium 4.1, BUN 17, Creatinine 1.07, Glucose 114 H, Magnesium 2.2, Total Bilirubin 0.7, AST 19, ALT 48, Alkaline Phosphatase 89 Assessment and Plan - Plan Assessment: Chest pain rule out ACS history CAD S/P CABG 2018 Hypertension Hyperlipidemia Plan: Chest pain rule out ACS history CAD S/P CABG 2018: Trend troponins, monitor on telemetry, cardiology consult in place. Continue aspirin, Plavix, metoprolol, atorvastatin. N.p.o. after midnight. Appreciate further input from cardiology Hypertension: Metoprolol 25 mg p.o. twice daily continued Hyperlipidemia: Atorvastatin 80 mg p.o. daily continued. DVT PPX: Lovenox Code status: Full Discharge Plan: Home Plan to discharge in: 24 Hours - Advance Directives Does patient have a Living Will: No Does patient have a Durable POA for Healthcare: Yes - Code Status/Comfort Care Code Status Assessed: Yes (Full code) Critical Care: No Time Spent Managing Pts Care (In Minutes): 55
[2022-01-19] MEDS ORDERED: MORPHINE 2 MG/ML SYR IV PRN (21:34)
[2022-01-19] MEDS ORDERED: ONDANSETRON 4 MG/2 ML VIAL IV PRN (21:34)
[2022-01-19] MEDS ORDERED: ATORVASTATIN 80 MG TAB PO SCH (21:34)
[2022-01-19 22:09] VITALS: BMI 31.1
[2022-01-20] MEDS ORDERED: MELATONIN 5 MG TABLET PO PRN (00:34)
[2022-01-20 01:29] VITALS: O2SAT 96
[2022-01-20] MEDS ORDERED: METOPROLOL TAR 25 MG TAB PO SCH (06:00)
[2022-01-20 06:08] LABS: Absolute Lymphocytes (CBC) 2.3 K/uL (0.7-4.9); Lymphocytes % 37.7 % (15.3-44.8); MPV 8.8 fL (7.6-11.3); RBC Red Blood Cell Count 4.73 M/uL (4.33-5.43)
[2022-01-20 06:30] LABS: Bilirubin Total 0.6 mg/dL (0.2-1.0); Protein, Total 6.9 g/dL (6.4-8.2); Troponin High Sensitivity 5.7 pg/mL (<58.9)
[2022-01-20] MEDS ORDERED: CLOPIDOGREL 75 MG TABLET PO SCH (09:00)
[2022-01-20] MEDS ORDERED: ENOXAPARIN 40 MG/0.4 ML SQ SCH (09:00)
[2022-01-20] MEDS ORDERED: ASPIRIN EC 81 MG TAB PO SCH (09:00)
--- NOTE | 2022-01-20 11:08 | EKG ---
Test Date: 2022-01-19 Test Time: 18:12:00 Continuous Dryout Operator Helper: CASSY MEASUREMENT RESULTS: Intervals: Rate: 70 HI: 140 QRSD: 80 QT: 396 QTc: 427 [place]: P: 34 HI: 140 QRS: 34 T: 59 INTERPRETIVE STATEMENTS: Normal sinus rhythm Normal ECG Compared to ECG 10/31/2021 20:00:31 Ventricular premature complex(es) no longer present Electronically Signed On 01-20-22 11:07:13 SUCTION PLATE ROLLER HAND by Anthony Cerda
[2022-01-20 13:14] VITALS: BP 110/62; TEMP 97.4
== END 2022-01-20 15:50 | disposition home or self-care (01) ==
LOC: ER 17:54 → ERHOLD 19:47 → 2ND 20:59
PROVIDERS: ADMIT Hospitalist; ATTEND Hospitalist
DX: R07.9 Chest pain, unspecified (principal); I25.10 Atherosclerotic heart disease of native coronary artery without angina pectoris; Z95.1 Presence of aortocoronary bypass graft; I10 Essential (primary) hypertension; E78.5 Hyperlipidemia, unspecified; Z20.822 Contact with and (suspected) exposure to COVID-19
CPT/HCPCS: 36415; 71045; 80048; 80053; 80076; 83735; 83880; 84484; 85025; 85610; 93005; 96374; 96375; 99285; G0378; J2405; U0003

== ENCOUNTER 2024-07-17 17:41 | Emergency (ER) | payer BC ==
[2024-07-17] MEDS ORDERED: ASPIRIN 81 MG CHEWABLE TABLET ONE (17:59)
--- NOTE | 2024-07-17 18:54 | RAD REPORT ---
EXAM DESCRIPTION: Derrek Single View07/17/2024 6:30 pm CLINICAL HISTORY: Chest pain COMPARISON: 2022 FINDINGS: The lungs appear clear of acute infiltrate. The heart is normal size . Postsurgical changes involve the chest IMPRESSION: No acute abnormalities displayed
[2024-07-17 19:34] LABS: Absolute Basophils 0.1 K/uL (0-0.5); Absolute Eosinophils 0.2 K/uL (0-0.5); Absolute Lymphocytes (CBC) 2.6 K/uL (0.7-4.9); Absolute Monocytes 0.7 K/uL (0.1-1.3); Absolute Neutrophil 3.8 K/uL (1.8-8.0); Hematocrit 41.9 % (39.6-49.0); Hemoglobin 14.4 g/dL (13.6-17.9); Lymphocytes % 35.3 % (15.3-44.8); MCH 30.1 pg (27.0-35.0); MCHC 34.5 g/dL (32.0-36.0); MCV 87.3 fL (80-100); MPV 8.5 fL (7.6-11.3); Monocytes % 9.4 % (3.3-12.3); Neutrophils % 51.3 % (41.7-73.7); Nucleated Red Blood Cells % 0.1 % (0-0); Platelets 221 thou/uL (152-406); Red Cell Distribution Width 12.9 % (12.1-15.2)
[2024-07-17 20:06] LABS: Anion Gap 9.1 mEq/L (5.0-15.0); Potassium 4.1 mEq/L (3.5-5.1); Troponin High Sensitivity 4.6 pg/mL (<58.9)
--- NOTE | 2024-07-17 22:08 | EDPHYS ---
Physician Documentation [facility] Name: Steven Morillo Age: 53 yrs Sex: Male : 1970 Arrival Date: 07/17/2024 Time: 17:41 Bed 20 Private MD: ED Physician Dagmar Holland HPI: 07/17 17:54 This 53 yrs old Male presents to ER via Unassigned with complaints of Chest Pain. 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 Denies nausea, vomiting, shortness of breath. Has taken 81mg ASA today. Reports pain radiates to shoulder blade slightly. . Historical: - Allergies: 17:59 No Known Allergies; kc6 - PMHx: 17:59 Myocardial infarction; Hypertension; CAD; Hyperlipidemia; Diabetes mellitus; kc6 - PSHx: 17:59 Coronary artery bypass graft; elbow surgery; hernia; shoulder surgery; Stented artery; kc6 - Immunization history:: Client reports having NOT received the Covid vaccine. Flu vaccine is not up to date. - Infectious Disease History:: Denies. - Social history:: Smoking status: Patient denies any tobacco usage or history of. ROS: 17:55 Constitutional: As per HPI kb Exam: 17:55 Constitutional: This is a well developed, well nourished patient who is awake, alert, kb and in no acute distress. Head/Face: Normocephalic, atraumatic. ENT: Moist Mucous membranes Cardiovascular: Regular rate Respiratory: Respirations even and unlabored. No increased work of breathing. Talking in full sentences Abdomen/GI: Soft, non-tender. No distention Skin: Warm, dry with normal turgor. Normal color. MS/ Extremity: Pulses equal, no cyanosis. Neurovascular intact. Full, normal range of motion. Neuro: Awake and alert, GCS 15, oriented to person, place, time, and situation. Moves all extremities. Normal gait. 17:58 ECG was reviewed by the Attending Physician. kb Vital Signs: 17:57 BP 165 / 112; Pulse 85; Resp 17 S; Temp 98.3(O); Pulse Ox 100% on R/A; Weight 97.52 kg kc6 (R); Height 5 ft. 11 in. (R); Pain 4/10; 19:20 BP 142 / 90; Pulse 88; Resp 16; Pulse Ox 98% ; Pain 4/10; jj7 20:26 BP 130 / 84; Pulse 85; Resp 17; Pulse Ox 98% ; jj7 21:30 BP 120 / 79; Pulse 79; Resp 17; Pulse Ox 99% ; jj7 22:35 BP 121 / 82; Pulse 77; Resp 17; Temp 97.4; Pulse Ox 98% ; Pain 0/10; jj7 17:57 Body Mass Index 29.99 (97.52 kg, 180.34 cm) kc6 17:57 Pain Scale: Adult kc6 19:20 Pain Scale: Adult jj7 22:35 Pain Scale: Adult jj7 MDM: 17:45 Patient medically screened. kb 21:45 Differential diagnosis: abnormal EKG, acute myocardial infarction, chest wall pain, kb congestive heart failure. The patient was given aspirin in the Emergency Department. Data reviewed: vital signs, nurses notes. Consideration of Admission/Observation Escalation of care including admission/observation considered. admission considered and recommended. Pt states he prefers to go home since his troponin is normal. 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 Care significantly affected by the following chronic conditions: WI with CABG. Counseling: I had a detailed discussion with the patient and/or guardian regarding the historical points, exam findings, and any diagnostic results supporting the discharge/admit diagnosis, lab results, radiology results, the need for outpatient follow up, a retort pre cooker, to return to the emergency department if symptoms worsen or persist or if there are any questions or concerns that arise at home. 07/17 17:59 Order name: Basic Metabolic Panel; Complete Time: 20:07 kb 07/17 17:59 Order name: CBC with Diff; Complete Time: 19:42 kb 07/17 17:59 Order name: Troponin HS; Complete Time: 20:07 kb 07/17 21:27 Order name: Troponin High Sensitivity; Complete Time: 22:06 kb 07/17 17:59 Order name: XRAY Chest (1 view) kb 07/17 17:59 Order name: Cardiac monitoring; Complete Time: 19:34 kb 07/17 17:59 Order name: EKG - Nurse/Tech; Complete Time: 18:00 kb 07/17 17:59 Order name: IV Saline Lock; Complete Time: 19:33 kb 07/17 17:59 Order name: Labs collected and sent; Complete Time: 19:33 kb 07/17 17:59 Order name: O2 Per Protocol; Complete Time: 18:59 kb 07/17 17:59 Order name: O2 Sat Monitoring; Complete Time: 18:59 kb EC:58 Rate is 83 beats/min. Rhythm is regular. QRS [place] is Normal. [place] interval is normal at kb 140 msec. QRS interval is normal at 86 msec. QT interval is normal at 427 msec. Administered Medications: 18:02 Drug: Aspirin PO Chewable Tablet 324 mg PO once; 81 mg tablets x 4 Route: PO; kc6 19:30 Follow up: Response: No adverse reaction jj7 Disposition Summary: 07/17/24 22:08 Discharge Ordered Notes: Location: Home kb Condition: Stable kb Diagnosis - Chest pain, unspecified kb Followup: kb - With: Emergency Department - When: As needed - Reason: Worsening of condition Followup: kb - With: Private Physician - When: 2 - 3 days - Reason: Recheck today's complaints, Continuance of care, Re-evaluation by your physician Discharge Instructions: - Discharge Summary Sheet kb - Nonspecific Chest Pain, Adult, [id number] kb Forms: - Medication Reconciliation Form kb - Antibiotic Education kb - Prescription Opioid Use kb - Patient Portal Instructions kb - Leadership Thank You Letter kb Signatures: Dispatcher [employer] EDBrigida Duenas, TOYA-Job PRUITTP-Radha Snow RN RN kc6 Deirdre Camargo RN jj7 Corrections: (The following items were deleted from the chart) 17:59 17:59 BASIC METABOLIC PANEL+C.LAB.BRZ ordered. EDMS EDMS 17:59 17:59 CBC+H.LAB.BRZ ordered. EDMS EDMS 17:59 17:59 Troponin High Sensitivity+C.LAB.BRZ ordered. EDMS EDMS 17:59 17:59 Chest Single View+RAD.RAD.BRZ ordered. EDMS EDMS
--- NOTE | 2024-07-17 22:08 | ER ---
Nurse's Notes [facility] Name: Steven Morillo Age: 53 yrs Sex: Male : 1970 Arrival Date: 07/17/2024 Time: 17:41 Bed 20 Private MD: Diagnosis: Chest pain, unspecified Presentation: 07/17 17:57 Chief complaint: Patient states: left sided chest pain x2 hours. denies SOB. kc6 Coronavirus screen: At this time, the client does not indicate any symptoms associated with coronavirus-19. Ebola Screen: No symptoms or risks identified at this time. Initial Sepsis Screen: Does the patient meet any 2 criteria? No. Patient's initial sepsis screen is negative. Does the patient have a suspected source of infection? No. Patient's initial sepsis screen is negative. Risk Assessment: Do you want to hurt yourself or someone else? Patient reports no desire to harm self or others. Onset of symptoms was July 17, 2024. 17:57 Method Of Arrival: Ambulatory [facility] 17:57 Acuity: TIFFANIE 3 kc6 Historical: - Allergies: 17:59 No Known Allergies; kc6 - PMHx: 17:59 Myocardial infarction; Hypertension; CAD; Hyperlipidemia; Diabetes mellitus; kc6 - PSHx: 17:59 Coronary artery bypass graft; elbow surgery; hernia; shoulder surgery; Stented artery; kc6 - Immunization history:: Client reports having NOT received the Covid vaccine. Flu vaccine is not up to date. - Infectious Disease History:: Denies. - Social history:: Smoking status: Patient denies any tobacco usage or history of. Screenin:20 [facility] ED Fall Risk Assessment (Adult) History of falling in the last 3 months, jj7 including since admission No falls in past 3 months (0 pts) Confusion or Disorientation No (0 pts) Intoxicated or Sedated No (0 pts) Impaired Gait No (0 pts) Mobility Assist Device Used No (0 pt) Altered Elimination No (0 pt) Score/Fall Risk Level 0 - 2 = Low Risk Oriented to surroundings, Maintained a safe environment, Educated pt \T\ family on fall prevention, incl call for assistance when getting out of bed, Assessed \T\ reinforced patient's understanding of fall precautions. Abuse screen: Denies threats or abuse. Nutritional screening: No deficits noted. Tuberculosis screening: No symptoms or risk factors identified. Assessment: 19:20 Reassessment: ASSUMED CARE OF PT. General: Appears in no apparent distress. jj7 comfortable, Behavior is calm, cooperative, appropriate for age. Pain: Complains of pain in chest Pain does not radiate. Pain began suddenly. Cardiovascular: Reports chest pain. Vital Signs: 17:57 BP 165 / 112; Pulse 85; Resp 17 S; Temp 98.3(O); Pulse Ox 100% on R/A; Weight 97.52 kg kc6 (R); Height 5 ft. 11 in. (R); Pain 4/10; 19:20 BP 142 / 90; Pulse 88; Resp 16; Pulse Ox 98% ; Pain 4/10; jj7 20:26 BP 130 / 84; Pulse 85; Resp 17; Pulse Ox 98% ; jj7 21:30 BP 120 / 79; Pulse 79; Resp 17; Pulse Ox 99% ; jj7 22:35 BP 121 / 82; Pulse 77; Resp 17; Temp 97.4; Pulse Ox 98% ; Pain 0/10; jj7 17:57 Body Mass Index 29.99 (97.52 kg, 180.34 cm) kc6 17:57 Pain Scale: Adult kc6 19:20 Pain Scale: Adult jj7 22:35 Pain Scale: Adult jj7 ED Course: 17:42 Patient arrived in ED. mr 17:45 Brigida Vazquez, [facility] kb 17:45 Dagmar Holland MD is Attending Physician. kb 17:59 Triage completed. kc6 17:59 Arm band placed on. EKG completed in triage. Results shown to MD. kc6 18:32 XRAY Chest (1 view) In Process Unspecified. EDMS 19:11 Deirdre Camargo, CHIRAG is Primary Nurse. jj7 19:20 Patient has correct armband on for positive identification. Placed in gown. Bed in low jj7 position. Call light in reach. Adult w/ patient. Provided Education on: USE OF CALL WEISS. Client placed on continuous cardiac and pulse oximetry monitoring. NIBP monitoring applied. electronics specialist on. Warm blanket given. 19:20 Inserted saline lock: 20 gauge in left antecubital area, using aseptic technique. Blood jj7 collected. Flushed with 10 mL NS. 19:34 Basic Metabolic Panel Sent. jj7 19:34 CBC with Diff Sent. jj7 19:34 Troponin HS Sent. jj7 22:35 No provider procedures requiring assistance completed. IV discontinued, intact, jj7 bleeding controlled, No redness/swelling at site. Pressure dressing applied. Patient maintains SpO2 saturation greater than 95% on room air. Administered Medications: 18:02 Drug: Aspirin PO Chewable Tablet 324 mg PO once; 81 mg tablets x 4 Route: PO; kc6 19:30 Follow up: Response: No adverse reaction jj7 Medication: 19:20 VIS not applicable for this client. jj7 Outcome: 22:08 Discharge ordered by MD. claudio 22:35 Discharged to home ambulatory, with significant other, jj7 22:35 Condition: good 22:35 Discharge instructions given to patient, Instructed on discharge instructions, follow up and referral plans. Demonstrated understanding of instructions, follow-up care, 22:56 Patient left the ED. jj7 Signatures: Dispatcher [employer] EDMS Brigida Vazquez, DEPUTY SHERIFF GENERALIST-C DEPUTY SHERIFF GENERALIST-Nydia Archibald, Reg Reg mr Radha Ochoa, RN RN kc6 Deirdre Camargo RN RN jj7
[2024-07-17 23:30] VITALS: BP 121/82; TEMP 97.4; O2SAT 98
--- NOTE | 2024-07-19 12:57 | EKG ---
Test Date: 2024-07-17 Test Time: 17:55:44 Tow Motor Driver: YOANA MEASUREMENT RESULTS: Intervals: Rate: 83 TN: 140 QRSD: 86 QT: 364 QTc: 427 [place]: P: 37 TN: 140 QRS: 52 T: 41 INTERPRETIVE STATEMENTS: Sinus rhythm with frequent premature ventricular complexes Otherwise normal ECG Compared to ECG 03/11/2023 17:49:49 Ventricular premature complex(es) now present Electronically Signed On 07-19-24 12:55:18 CDT by Gregorio Hewitt
== END 2024-07-17 22:56 | disposition home or self-care (01) ==
LOC: ER 17:41
DX: R07.89 Other chest pain (principal); I10 Essential (primary) hypertension; I25.2 Old myocardial infarction; E11.9 Type 2 diabetes mellitus without complications; Z95.1 Presence of aortocoronary bypass graft
CPT/HCPCS: 36415; 71045; 80048; 84484; 85025; 93005; 99285